=== PATIENT | female | born 1945 ===

== ENCOUNTER 2020-06-29 17:54 | Inpatient (IN) | payer OTHER ==
--- OUTSIDE RECORDS SUMMARY | 2020-06-29 18:01 | XMS REPORT | Continuity of Care Document ---
:1945 Author Organization [facility] Information [place] Care Team Providers Name Role Phone [facility] Information [place] Unavailable Un available Problems Problem Status Onset Classification Date Comments Sourc e Date Reported CHRONIC MYELOID Active Daryn rial LEUKEMIA 020 Bhupinder SBO Active [address] SBO,HX:ELEUTERIO-EN Y Active [facility] GASTRIC BYPASS [address] [place] [address] Center Enterobacter Active Problem 02/22/2020 03/03/15 MDRO , Enterobacter aerogenes, ESBL+ isolated from abdomonal fluid Mischer (organism) 015 Problem added by Rosi reed Expert. Neuro,[facility] Klebsiella Active Problem 02/22/2020 Abd Fluid (PDR), 0 03/03/2015 Mischer (organism) 015 Problem added by Rosi reed Expert. 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, overactive [place] (disorder) [facility] Deep venous Active Problem 02/22/2020 Mischer thrombosis [facility] (disorder) [facility] Diabetes mellitus Active Problem 02/22/2020 M [facility] (disorder) Neuro,[facility] Gastroesophageal Active Problem 02/22/2020 Il lani reflux disease Neuro , (disorder) [facility] 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/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, 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 [place] (context-dependent M edical category) [facility] Hypertensive Active Problem 02/22/2020 Mische r disorder, systemic N euro,MH arterial (disorder) [facility] 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 The other muscles appear to be viable, including all the interosseous muscles, the hypothenar muscles as well as the opponens muscle and the abductor pollicis brevis muscle. Morbid obesity Active Problem 02/22/2020 [facility] her (disorder) Neuro,[facility] Osteoarthritis Active Problem 02/22/2020 [facility] her (disorder) Neuro,[facility] Polyneuropathy Active Problem 02/22/2020 [facility] her (disorder) Neuro,[facility] Diabetes mellitus Active Problem 02/22/2020 M ischer type 2 (disorder) Ne uro,[facility] MORBID OBESITY Active [facility] LFT HAND PAIN Active [facility] Linda ADMINISTRTVE Active [place] [facility] HAND BRACE Active [facility] Linda UNSP INTESTNL OBST, Active [facility] UNSP TO PARTIAL [facility] BARIATRIC SURGERY Active [facility] CHRONIC MYELOID Active Daryn Bhupinder Castro BCR/ABL-POSITIVE, Medications Medication Details Route Status Patient Ordering Order Source Instructions Provider Date Metformin 500 mg = 1 tab, Active hydrochloride 500 PO, BID-Meals, 2019 [place] [facility] Oral Tablet # 30 tab, 0 Refill(s) Esomeprazole 20 MG 20 mg = 1 cap, Active Enteric Coated PO, Daily, # 30 2019 [place] Capsule [Nexium] cap, 0 Refill(s) Prednisone 10 mg, PO, Active Daily, Quantity 2019 Neuro sufficient, 0 Refill(s) Tradjenta 5 mg, PO, Active Daily, 0 2019 Neuro Refill(s) Xarelto 20 mg, PO, Active Daily, 0 2019 Neuro Refill(s) Clonidine 0.1 mg, 0 Active Refill(s) 2019 Neuro Lasix Daily, 0 Active Refill(s) 2019 Neuro Lisinopril 20 mg, PO, BID, Active ch er 0 Refill(s) 2019 Neuro oxybutynin 5 mg, PO, Active cher Daily, 0 2019 Neuro Refill(s) Losartan Notes: (Same Inactive [facility] as: Cozaar) [address] [facility] metoprolol 50 mg 50 mg = 1 tab, Active [facility] oral tablet, PO, Daily, 0 2019 Medica l extended release Refill(s) Cente r Ondansetron 4 MG 4 mg = 1 tab, Active [facility] Disintegrating PO, BID, PRN 2019 Medi carmen Tablet [Zofran] Nausea and Cente r Vomiting, Dissolve tab under tongue, # 10 tab, 0 Refill(s) Citalopram 20 MG 20 mg = 1 tab, Active [facility] Oral Tablet PO, Daily, 0 2018 Medical [Celexa] Refill(s) [place] Clonidine 0.1 mg, Route: Inactive [facility] as Hydrochloride 0.1 PO, Drug form: 2019 Medical MG Oral Tablet TAB, ONCE, Center Dosing Weight 104.545, kg, Start date: 02/17/19 18:05:00 CDT, Stop date: 02/17/19 18:05:00 CDT Clonidine Notes: (Same No Longer [facility] Hydrochloride 0.1 As: Catapres) Active 2019 Medical MG Oral Tablet [place] Dextrose 50% 12.5 gm, Route: Inactive [facility] Syringe IVP, Dosing 2019 Medical Weight 104.545, Center kg, ONCE, Start date: 02/17/19 13:54:00 CDT, Stop date: 02/17/19 13:54:00 CDT D5W 1/2NS 1,000 mL 1,000 mL, Rate: No Longer [facility] 100 ml/hr, Active 2018 Medical Infuse over: 10 Center hr, Route: IV, Dosing Weight 104.545 kg, Total Volume: 1,000, Start date: 02/17/19 13:49:00 CDT, Duration: 30 day, Stop date: 03/19/19 13:48:00 CDT, 2.28, m2, 0 Lisinopril Notes: (Same Inactive [place] as: Prinivil, 2019 Medical Zestril) Center normal saline 0.9% 1,000 mL, Rate: No Longer [place] IV 1,000 mL 100 ml/hr, Active 2019 Medical Infuse over: 10 Center hr, Route: IV, Dosing Weight 104.545 kg, Total Volume: 1,000, Start date: 02/16/19 22:05:00 CDT, Duration: 30 day, Stop date: 03/18/19 22:04:00 CDT, 2.28, m2, 0 sennosides, SHELTER Notes: (Same Inactive [facility] as: Senokot) 2019 Medical Center Dexamethasone Notes: No Longer [place] Concentration: Active 2019 Medical 4mg/ml Center Dexamethasone 4 mg, Route: Inactive [place] IVP, Daily, 2019 Medical Dosing Weight Center 104.545, kg, Priority: NOW, Start date: 02/16/19 12:48:00 CDT, Duration: 30 day, Stop date: 03/18/19 9:00:00 CDT Metoprolol Notes: (Same No Longer [facility] as as: Lopressor) Active 2019 Medical Push over 2 Center minutes Sodium Chloride 1,000 mL, Rate: Inactive [place] 0.9% IV 1,000 mL + 100 ml/hr, 2019 N[place] dical folic acid 1 mg + Infuse over: C enter thiamine 100 mg + 10.1 hr, Route: multivitamin 10 mL IV, Dosing Weight 104.545 kg, Total Volume: 1,011.2, Start date: 02/16/19 12:00:00 CDT, Duration: 1 doses or times, Stop date: 02/16/19 22:05:00 CDT, 2.27, m2, 0 Ofirmev Notes: Infuse No Longer [facility] over 15 minutes Active 2019 Medical Do not exceed Center 4gm/day of acetaminophen MEDICATION WASTE Product Size: 1000 mg Product Wasted: ___ mg Dextrose 50% 12.5 gm, 25 mL, No Longer [facility] Syringe Route: IVP, Active 2019 Medical Drug Form: INJ, Center Dosing Weight 104.545, kg, PRN, PRN Blood Glucose Results, Start date: 02/16/19 11:00:00 CDT, Duration: 30 day, Stop date: 03/18/19 10:59:00 CDT, 0 Glucagon 1 mg, Route: No Longer [facility] IM, Drug form: Active 2018 Medical PDR/INJ, PRN, Center Dosing Weight 104.545, kg, PRN Blood Glucose Results, Start date: 02/16/19 11:00:00 CDT, Duration: 30 day, Stop date: 03/18/19 10:59:00 CDT, 0 Insulin regular Notes: (Same No Longer [facility] as: Humulin R) Active 2019 Medical Roll in palms Center of hands gently; Do not shake vigorously. WASTE: F/P - Black; E - Municipal Trash Bin Stable for 31 days at room temperature Expires in days from D ate Lasix Notes: (Same Inactive [facility] as: Lasix) 2019 Medical [place] Lisinopril Notes: (Same No Longer Kit as as: Prinivil, Active 2019 Medical Zestril) Center metoprolol Notes: (Same No Longer Kit as extended release as: Toprol XL) Active 2019 Medical [place] split tab, Center but do not crush. Clonidine Notes: (Same Inactive [facility] As: Catapres) 2019 Medical [place] phenol Notes: No Longer [facility] Chloraseptic Active 2019 Medical [place] (Same as: Center Chloraseptic, Sore Throat [place]) WASTE: F/P - Black; E - Municipal Trash Bin Morphine 2 mg, Route: Inactive [facility] IVP, ONCE, 2019 Medical Dosing Weight Center 104.545, kg, Start date: 02/16/19 9:16:00 CDT, Stop date: 02/16/19 9:16:00 CDT Docusate Notes: (Same Inactive [facility] as: Colace) (Do 2019 Medical Not Crush) Center Protonix Notes: For IV No Longer [place] push Active 2019 Medical reconstitute Center with 10 ml 0.9% sodium chloride and push over 2 minutes. (Same as: Protonix) Sucralfate Notes: May No Longer [place] interfere Active 2019 Medical w/enteral feeds Center - Take 1 hr before or 2 hr after antacids, dairy pdt, meals & minerals - On empty stomach. Clonidine Notes: (Same Inactive [place] Hydrochloride 0.1 As: Catapres) 2019 Medical MG Oral Tablet Center Sodium Chloride 984.8 mL, Rate: Inactive [place] 0.9% IV 984.8 mL + 100 ml/hr, 2019 Nd dical M.V.I.-12 10 mL Infuse over: 10 Center Daily + folic acid hr, Route: IV, IV 1 mg Daily + Dosing Weight thiamine IV 5 104.545 kg, Total Volume: 1,000, Start date: 02/16/19 8:22:00 CDT, Duration: 1 doses or times, Stop date: 02/16/19 18:21:00 CDT, 2.27, m2, 0 Heparin 80 unit/kg Route: IVP, No Longer Meseret Bolus (Heparin PRN, 6,400 Active 2018 Medica l Dosing Weight) unit, 6.4 mL, Michael ter Drug form: INJ, PRN, Heparin Protocol, Start date: 02/16/19 8:17:00 CDT Stop date: 03/18/19 8:16:00 CDT, 30 day, 0 Heparin 40 unit/kg Route: IVP, No Longer Meseret Bolus (Heparin PRN, 3,200 Active 2018 Medica l Dosing Weight) unit, 3.2 mL, Michael ter Drug form: INJ, PRN, Heparin Protocol, Start date: 02/16/19 8:17:00 CDT Stop date: 03/18/19 8:16:00 CDT, 30 day, 0 heparin additive Notes: Total No Longer Meseret 25,000 unit [18 Concentration = Active 2019 Medical unit/kg/hr] + 50 unit/ ml Center Premix Diluent Total volume = Sodium Chloride 500 ml Send Med 0.45% 500 mL Request 2 hours prior to next bag Hydrochlorothiazid Notes: (Same Inactive [place] e as: 2019 Medical Hydrodiuril) Center With food. Dextrose 50% 12.5 gm, 25 mL, Inactive [place] Syringe Route: IVP, 2019 Medical Drug Form: INJ, Center Dosing Weight 104.545, kg, PRN, PRN Blood Glucose Results, Start date: 02/16/19 8:10:00 CDT, Duration: 30 day, Stop date: 03/18/19 8:09:00 CDT, 0 Glucagon 1 mg, Route: Inactive [place] IM, Drug form: 2019 Medical PDR/INJ, PRN, Center Dosing Weight 104.545, kg, PRN Blood Glucose Results, Start date: 02/16/19 8:10:00 CDT, Duration: 30 day, Stop date: 03/18/19 8:09:00 CDT, 0 Ondansetron Notes: (Same No Longer [place] as: Zofran) Active 2018 Medical MEDICATION Center WASTE Product Size: 4 mg Product Wasted: ___ mg traMADol 100 mg/24 PO, [id number], 0 Active hours oral Refill(s) 2014 [facility] capsule, extended City release Nystatin [id number] 1 appl, TOP, Active UNT/ML / TID, 0 2014 [facility] Triamcinolone Refill(s) [facility] Acetonide 1 MG/ML Topical Cream meropenem 500 mg 500 mg, IV, Active intravenous Q6H, X 10 day, 2014 Memor ial injection # 1 bag, 0 City Refill(s) diphenhydrAMINE 50 25 mg = 0.5 mL, Active 03/06 mg/mL injectable IVP, Q6H, PRN 2014 [facility] solution Itching, 0 City Refill(s) Bisacodyl Notes: (Same No Longer As: Dulcolax, Active 2014 [facility] Bisco-Lax) [facility] Nystatin 000032 Notes: For No Longer UNT/ML / External Use Active 2014 [facility] Triamcinolone Only (Same [facility] Acetonide 1 MG/ML as:Mycolog II Topical Cream cream) Lopressor Notes: (Same No Longer as: Lopressor) Active 2014 [facility] Magnesium Oxide Notes: (Same No Longer 03/05/ H as: Mag-Ox 400) Active 2014 [facility] Magnesium oxide [facility] [id number] elemental magnesium Dose=____mg magnesium oxide (___mg elemental magnesium) insulin detemir Notes: Same as No Longer Levemir Do not Active 2014 [facility] insulin [facility] without contacting prescriber "single patient use only" insulin detemir Notes: Same as No Longer Levemir Do not Active 2014 [facility] insulin [facility] without contacting prescriber "single patient use only" ferrous sulfate Notes: Give No Longer with food. iron Active 2014 [facility] [id number] as ferrous sulfate Dose=___mg elemental iron multivitamin Notes: Give No Longer with food. Active 2014 [facility] (Same As : [facility] Therapeutic multivitamins) POLYETHYLENE 17 gm, 1 pkt, No Longer GLYCOL 3350 Route: PO, Drug Active 2014 Daryn rial form: PWDR, [facility] Daily, Dosing Weight 30.909, kg, Start date: 03/04/15 9:16:00, Duration: 30 day, Stop date: 04/03/15 9:00:00 multivitamin with 1 cap, Route: Inactive iron PO, Drug Form: 2014 [facility] CAP, Dosing [facility] Weight 30.909, kg, Daily, Start date: 03/04/15 9:15:00, Duration: 30 day, Stop date: 04/03/15 9:00:00 Lopressor Notes: (Same No Longer as: Lopressor) Active 2014 [facility] Docusate Sodium 100 mg, 1 cap, No Longer 100 MG Oral Route: PO, Drug Active 2014 Daryn rial Capsule [Colace] form: CAP, BID, [facility] Dosing Weight 30.909, kg, Start date: 03/04/15 9:14:00, Duration: 30 day, Stop date: 04/03/15 9:00:00 Vitamin D3 5000 5,000 IntlUnit, No Longer intl units oral 5 tab, Route: Active 2014 Me morial capsule PO, Drug form: [facility] TAB, Daily, Dosing Weight 30.909, kg, Start date: 03/04/15 9:14:00, Duration: 30 day, Stop date: 04/03/15 9:00:00 Calcium Carbonate Notes: (Same No Longer 1250 MG / As: Fernando-D, Active 2014 [facility] Cholecalciferol OsCal-D, [facility] 125 UNT Oral Calcium) Tablet Amlodipine Notes: (Same No Longer as: Norvasc) Active 2014 [facility] Enoxaparin Notes: (Same No Longer as: Lovenox) Active 2014 [facility] Hydrochlorothiazid Notes: (Same No Longer e as: Active 2014 [facility] Hydrodiuril) [facility] With food. Insulin, Aspart, Notes: Roll in No Longer Human palms of hands Active 2014 [facility] gently; Do not City shake vigorously. (Same as: NovoLOG) "single patient use only" Stable for 28 days at room temperature. Expires in days from D ate Dextrose 50% 12.5 gm, 25 mL, No Longer H Syringe Route: IVP, [facility] 2014 [facility] Drug Form: INJ, [facility] Dosing Weight 30.909, kg, PRN, PRN Blood Glucose Results, Start date: 03/04/15 8:53:00, Duration: 30 day, Stop date: 04/03/15 8:52:00 Glucagon 1 mg, Route: No Longer IM, Drug form: [address] PDR/INJ, PRN, [facility] Dosing Weight 30.909, kg, PRN Blood Glucose Results, Start date: 03/04/15 8:53:00, Duration: 30 day, Stop date: 04/03/15 8:52:00 Ondansetron Notes: (Same No Longer as: Zofran) Active [address] [place] [address] MEDICATION City WASTE Product Size: 4 mg Product Wasted: ___ mg Bisacodyl Notes: (Same No Longer As: Dulcolax, Active [address] [place] [address] Bisco-Lax) [facility] acetaminophen 325 Notes: Do not No Longer mg oral tablet exceed [address] [place] [address] gm/day. (Same [place] as: Tylenol) Benadryl Notes: (Same No Longer as: Benadryl) Active 2014 [facility] metoprolol Notes: (Same No Longer tartrate as: Lopressor) Active 2014 [facility] Sodium Chloride 25 mL, Route: No Longer 0.9% IV IV, Start date: Active 2014 [facility] 03/03/15 [facility] 21:41:00, Duration: 30 day, Stop date: 04/02/15 21:40:00, PRN Line Flush BD Normal Saline Notes: (Same No Longer Flush as: BD Active 2014 [facility] Posiflush) [facility] Metoprolol Notes: (Same No Longer as: Lopressor) Active 2014 [facility] Push over 2 City minutes Amlodipine Notes: (Same No Longer as: Norvasc) Active 2014 [facility] Hydralazine Notes: (Same Inactive as: Apresoline) 2014 [facility] Push over 5 City minutes Dilaudid Notes: (Same No Longer as: Dilaudid) Active 2014 [facility] Losartan Notes: (Same No Longer as: Cozaar) Active 2014 [facility] metoprolol Notes: (Same Inactive extended release as: Toprol XL) 2014 [facility] Do Not Crush [facility] Nexium 40 mg, Route: No Longer PO, Before Active 2014 [facility] Breakfast, [facility] Dosing Weight 160.455, kg, Start date: 03/03/15 7:30:00, Duration: 30 day, Stop date: 04/01/15 7:30:00 Protonix Notes: Tablet No Longer should not be Active 2014 [facility] chewed or [facility] crushed. (Same as: Protonix) Alteplase Notes: "Syringe No Longer for catheter Active 2014 [facility] clearance or [facility] interventional radiology use. Reconstitute each vial of Cathflo Activase with 2.2 ml Sterile Water resulting in a 1 mg/ml solution. Stable for 8 hours only. (Same as: Activase) MEDICATION WASTE Product Size: 2 mg Product Wasted: ___ mg 24 HR tramadol Notes: Not to No Longer 03/03/ H hydrochloride 100 exceed Active 2014 Memori al MG Extended 400mg/day. City Release Tablet (Same As: Ultram) meropenem Notes: Same as No Longer Merrem Active 2014 [facility] MEDICATION [facility] WASTE Product Size: 500 mg Product Wasted: ___ mg D5NS + KCL 20mEq/L Notes: PREMIX No Longer 03/02 1000ml (Premix) IV - Do Not Active 2014 Daryn rial 1,000 mL [facility] remove patch Notes: Remove No Longer old patch Active 2014 [facility] before [facility] application of new patch. meropenem 500 mg 500 mg, IV, Active intravenous Q6H, X 14 day, 2014 [facility] # [facility] bag, 0 [facility] Refill(s), given to patient Vancomycin 1 gm = 200 mL, Active IVPB, [id number], 2014 [facility] 0 Refill(s) [facility] enoxaparin 30 30 mg = 0.3 mL, Active mg/0.3 mL SUB-Q, 2014 [facility] subcutaneous [id number], 0 [facility] solution Refill(s) Acetaminophen 325 2 tab, PO, Q4H, Active MG / Hydrocodone PRN Pain Score 2014 [facility] Bitartrate 5 MG 7-10, 0 [facility] Oral Tablet [[place] Refill(s) 5/325] Docusate Sodium 100 mg = 1 cap, Active 100 MG Oral PO, BID, 0 2014 [facility] Capsule [Colace] Refill(s) [facility] metoprolol 50 mg = 1 tab, Active tartrate 50 mg PO, Daily, 0 2014 Daryn rial oral tablet Refill(s) [facility] metoprolol 75 mg = 3 tab, Active tartrate 25 mg PO, Bedtime, 0 2014 Me morial oral tablet Refill(s) [facility] omeprazole 20 mg 20 mg = 1 cap, Active oral delayed PO, Daily, # 30 2015 [facility] orial release capsule cap, 0 [facility] Refill(s), given to patient losartan 100 mg 100 mg = 1 tab, Active oral tablet PO, Daily, 0 2014 Memoria l Refill(s) [facility] Vitamin D3 5000 PO, Daily, 0 Active intl units oral Refill(s) [facility] capsule [facility] POLYETHYLENE PO, Daily, 0 Active GLYCOL 3350 Refill(s) 2014 [facility] ondansetron 2 4 mg = 2 mL, Active mg/mL injectable IVP, Q8H, PRN 2014 [facility] solution Nausea & City Vomiting, 0 Refill(s) multivitamin with 1 cap, PO, Active iron Daily, 0 2014 [facility] Refill(s) [facility] acetaminophen 325 325 mg = 1 tab, Active mg oral tablet PO, Q4H, PRN 2014 Daryn rial Pain Score 1-3, [facility] 0 Refill(s) Hydrochlorothiazid 50 mg = 2 tab, Active e 25 MG Oral PO, Daily, 0 2014 [facility] Tablet Refill(s) [facility] Regular Insulin, 15 unit, SUB-Q, Active Human 100 UNT/ML Sliding Scale, 2014 [facility] Injectable PRN Blood [facility] Solution Glucose Results, 0 Refill(s) insulin detemir 10 unit, SUB-Q, Active 100 units/mL QAM, 0 2014 [facility] subcutaneous Refill(s) [facility] solution Calcium Carbonate 1 tab, PO, TID, Active 1250 MG / 0 Refill(s) 2014 [facility] Cholecalciferol [facility] 125 UNT Oral Tablet bisacodyl 10 mg 10 mg = 1 supp, Active rectal suppository PA, Daily, PRN 2014 [facility] Constipation, 0 [facility] Refill(s) amLODIPine 5 mg 5 mg = 1 tab, Active oral tablet PO, Bedtime, 0 2014 [facility]) [facility] glucagon 1 mg, IM, PRN, Active recombinant 1 mg PRN Blood 2014 Memor ial injection Glucose [facility] Results, 0 Refill(s) Calcium Carbonate Notes: (Same No Longer 1250 MG / As: Fernando-D, Active 2014 [facility] Cholecalciferol OsCal-D, [facility] 125 UNT Oral Calcium) Tablet multivitamin with Notes: Same as: No Longer iron Hematogen Active 2014 [facility] Non-Formulary [facility] saliva substitutes Notes: Same as No Longer Biotene Oral Active 2014 [facility] Balance [facility] Dulcolax Laxative Notes: (Same No Longer As: Dulcolax, Active 2014 [facility] Bisco-Lax) [facility] Magnesium Oxide Notes: (Same Inactive as: Mag-Ox 400) 2014 [facility] Magnesium oxide [facility] [id number] elemental magnesium Dose=____mg magnesium oxide (___mg elemental magnesium) Vitamin B1 + Notes: (Same No Longer Sodium Chloride As: Vitamin B1) Active 2014 [facility] 0.9% IV 50 mL [facility] meropenem + Sodium Notes: Same as No Longer Chloride 0.9% IV Merrem Active 2014 [facility] 100 mL MEDICATION [facility] WASTE Product Size: 500 mg Product Wasted: ___ mg Kayexalate 15 gm, Route: Inactive PO, Drug form: [address] [place] [address] SUSP, ONCE, City Dosing Weight 171.3, kg, Start date: 02/15/15 18:09:00, Stop date: 02/15/15 18:09:00 acetaminophen 325 Notes: Do not No Longer mg oral tablet exceed 4 Active 2014 [facility] gm/day. (Same City as: Tylenol) Morphine Notes: (Same No Longer as:MORPhine Active 2014 [facility] Sulfate) [facility] Acetaminophen 325 Notes: (Same No Longer MG / Hydrocodone as: [place] [facility] Bitart[facility] 5 MG 325/5) Do not C ity Oral Tablet [[place] exceed 4gm/day 5/325] of acetaminophen. Dulcolax Laxative Notes: (Same No Longer As: Dulcolax, Active 2014 [facility] Bisco-Lax) [facility] Levemir FlexPen Notes: Same as Inactive Levemir Do not 2014 [facility] insulin [facility] without contacting prescriber "single patient use only" Magnesium Oxide Notes: (Same Inactive as: Mag-Ox 400) 2014 [facility] Magnesium oxide [facility] [id number] elemental magnesium Dose=____mg magnesium oxide (___mg elemental magnesium) Amino Acids 5% Notes: Same as: Inactive with 20% Dextrose Clinimix [facility] Memor ial (Clinimix [facility] Sulfite-Free) 2,000 mL + sodium chloride 70 mEq + sodium Floranex 1 tab, Route: No Longer CHEW, Drug Active 2014 [facility] Form: TAB, City Dosing Weight 171.3, kg, TID, Start date: 02/14/15 13:00:00, Duration: 30 day, Stop date: 03/16/15 10:00:00 Dulcolax Laxative Notes: (Same Inactive As: Dulcolax, 2014 [facility] Bisco-Lax) [facility] Levemir Notes: Same as Inactive Levemir Do not 2014 [facility] insulin [facility] without contacting prescriber "single patient use only" metoprolol Notes: (Same No Longer tartrate as: Lopressor) Active 2014 [facility] Sodium Chloride 1,000 mL, Rate: No Longer 0.154 MEQ/ML 125 ml/hr, Active 2014 [facility] Injectable Infuse over: 8 City Solution hr, Route: IV, Dosing Weight 171.3 kg, Total Volume: 1,000, Start date: 02/13/15 13:57:00, Duration: 30 day, Stop date: 03/15/15 13:56:00 Labetalol Notes: (Same No Longer as: Normodyne, Active 2014 [facility] Trandate) Push City over 2 minutes Give bolus over 2-3 minutes. Morphine Notes: (Same No Longer as:MORPhine Active 2014 [facility] Sulfate) [facility] Albuterol 0.83 Notes: SEE RT No Longer H MG/ML Inhalant DOCUMENTATION Active 2014 [facility] orial Solution (Same as: [facility] Proventil) Naloxone Notes: Same as No Longer Narcan Active 2014 [facility] Flumazenil Notes: (Same No Longer as: Romazicon) Active 2014 [facility] Hydromorphone Notes: (Same No Longer as: Dilaudid) Active 2014 [facility] Ondansetron Notes: (Same No Longer as: Zofran) Active 2014 [facility] MEDICATION City WASTE Product Size: 4 mg Product Wasted: ___ mg Cipro Notes: Do not No Longer refrigerate Active 2014 [facility] Miralax Notes: Dissolve No Longer in 8 oz of Active 2014 [facility] water or juice. City (Same as: Miralax) Docusate Sodium Notes: (Same No Longer H 100 MG Oral as: Colace) (Do Active 2014 [facility] rial Capsule [Colace] Not Crush) [facility] Levemir FlexPen Notes: Same as No Longer Levemir Do not Active 2014 [facility] hold insulin [facility] without contacting prescriber "single patient use only" Vitamin D3 2,000 IntlUnit, No Longer 2 tab, Route: Active 2014 [facility] PO, Drug form: City TAB, Daily, Dosing Weight 171.3, kg, Start date: 02/13/15 9:00:00, Duration: 30 day, Stop date: 03/14/15 9:00:00 metoprolol Notes: (Same No Longer tartrate as: Lopressor) Active 2014 [facility] Hydrochlorothiazid Notes: (Same No Longer e as: Active 2014 [facility] Hydrodiuril) [facility] With food. 168 HR Clonidine Notes: Patch Inactive H 0.16035 MG/HR delivers 0.2 2014 [facility] Transdermal Patch mg/24 hours; C ity Patch is applied weekly. "Remove old patch before application of new patch" (Same As: [id number]) Amino Acids 5% Notes: Same as: No Longer with 20% Dextrose Clinimix Active 2014 [facility] (Clinimix [facility] Sulfite-Free) 2,000 mL + sodium chloride 70 mEq + sodium Vitamin B1 + Notes: (Same No Longer Sodium Chloride As: Vitamin B1) Active 2014 [facility] 0.9% IV 50 mL [facility] Clindamycin 900 mg, 50 mL, No Longer Route: IVPB, Active 2014 [facility] Drug form: INJ, [facility] [id number], Dosing Weight 171.3, kg, Start date: 02/12/15 16:00:00, Duration: 30 day, Stop date: 03/14/15 8:00:00 Vitamin B 12 Notes: (Same Inactive As: Vitamin 2014 [facility] B12) [facility] Sodium Chloride 1,000 mL, Rate: Inactive 0.154 MEQ/ML 100 ml/hr, 2014 [facility] Injectable Infuse over: 10 City Solution hr, Route: IV, Dosing Weight 171.3 kg, Total Volume: 1,000, Start date: 02/12/15 15:42:00, Duration: 3 day, Stop date: 02/15/15 15:41:00 Alteplase Notes: "Syringe Inactive for catheter 2014 [facility] clearance or [facility] interventional radiology use. Stable for 8 hours only. (Same as: Activase) MEDICATION WASTE Product Size: 2 mg Product Wasted: ___ mg Morphine Notes: (Same No Longer as:MORPhine Active 2014 Sulfate) [facility] Magnesium Sulfate 2 gm, 50 mL, Inactive Route: IVPB, 2014 Drug form: INJ, [facility] Q2H, Dosing Weight 171.3, kg, Total dose = 4 gm, Start date: 02/11/15 12:00:00, Duration: 2 doses or times, Stop date: 02/11/15 14:00:00 fat emulsion, Notes: (Same No Longer intravenous as: Intralipid, Active 2014 [facility] Liposyn) [facility] Vancomycin Notes: TIME No Longer CRITICAL Active 2014 [facility] MEDICATION [facility] Morphine Notes: (Same No Longer as:MORPhine Active 2014 [facility] Sulfate) [facility] Amino Acids 5% Notes: Same as: No Longer with 20% Dextrose Clinimix Active 2014 [facility] (Clinimix [facility] Sulfite-Free) 2,000 mL + sodium chloride 70 mEq + sodium Insulin regular 60 units) No Longer Stable for 28 Active 2014 [facility] at room [facility] temperature Expires in days from D ate Dextrose 50% 25 gm, 50 mL, No Longer Syringe Route: IVP, 2014 [facility] Drug Form: INJ, [facility] Dosing Weight 171.3, kg, PRN, PRN Blood Glucose Results, Start date: 02/09/15 9:08:00, Duration: 30 day, Stop date: 03/11/15 9:07:00 Glucagon 1 mg, Route: No Longer IM, Drug form: Active 2014 [facility] PDR/INJ, PRN, [facility] Dosing Weight 171.3, kg, PRN Blood Glucose Results, Start date: 02/09/15 9:08:00, Duration: 30 day, Stop date: 03/11/15 9:07:00 insulin detemir Notes: Same as No Longer Levemir Do not Active 2014 [facility] insulin [facility] without contacting prescriber "single patient use only" Morphine Notes: (Same Inactive as:MORPhine 2014 [facility] Sulfate) [facility] Morphine Notes: (Same Inactive as:MORPhine 2014 [facility] Sulfate) [facility] Ativan Notes: (Same No Longer as: Ativan) Active 2014 [facility] insulin 60 units) Inactive isophane-NPH Stable for 28 [facility] days at [facility] temperature Expires in days from D ate Magnesium Sulfate 2 gm, 50 mL, Inactive Route: IVPB, 2014 [facility] Drug form: INJ, [facility] ONCE, Dosing Weight 171.3, kg, Total dose = 2 gm, Start date: 02/08/15 9:42:00, Duration: 1 doses or times, Stop date: 02/08/15 9:42:00 Lasix Notes: (Same No Longer as: Lasix) Active 2014 [facility] MEDICATION [facility] WASTE Product Size: 40 mg Product Wasted: ___ mg potassium Notes: (Same No Longer phosphate + Sodium as: K Active 2014 [facility] ia Chloride 0.9% IV Phosphate.) 1 [facility] 250 mL mMol phoshate has 1.47 mEq potassium Infuse over 4 hours fat emulsion, Notes: (Same No Longer intravenous as: Intralipid, Active 2014 [facility] Liposyn) [facility] Calcium Gluconate 2,000 mg, 20 Inactive mL, Route: 2014 [facility] IVPB, ONCE, [facility] Dosing Weight 171.3, kg, Start date: 02/07/15 7:37:00, Stop date: 02/07/15 7:37:00 pantoprazole 40 mg, Route: No Longer IVP, Before Active 2014 [facility] Breakfast, [facility] Dosing Weight 171.3, kg, Start date: 02/07/15 7:30:00, Duration: 30 day, Stop date: 03/08/15 7:30:00 Amino Acids 5% Notes: Same as: No Longer with 20% Dextrose Clinimix E 5/20 Active 2014 [facility] and Electrolytes Andrew (Clinimix E electrolytes Sulfite-Free) for this 2,000 mL + formulation multivitamin listed on bag meropenem Notes: Same as No Longer Merrem Active 2014 [facility] WASTE Product Size: 500 mg Product Wasted: ___ mg micafungin Notes: Same as No Longer Mycamine Active 2014 [facility] Protect from City light MEDICATION WASTE Product Size: 100 mg Product Wasted: ___ mg Tobramycin Notes: TIME Inactive CRITICAL 2014 [facility] (Same As: Nebcin) Calcium Gluconate 2,000 mg, 20 Inactive mL, Route: 2014 [facility] IVPB, ONCE, [facility] Dosing Weight 171.3, kg, Start date: 02/06/15 16:07:00, Stop date: 02/06/15 16:07:00 insulin 60 units) No Longer isophane-NPH Stable for 28 Active 2014 [facility] days at room [facility] temperature Expires in days from D ate saliva substitutes Notes: Same as No Longer 01/11 Biotene Oral Active 2014 [facility] enalaprilat Notes: (Same No Longer as: Vasotec-IV) Active 2014 [facility] lidocaine 1% Notes: No Longer Preservative Active 2014 [facility] free. (Same City as: Xylocaine MPF) Insulin regular 60 units) No Longer Stable for 28 Active 2014 [facility] days at room [facility] temperature Expires in days from D ate Glucagon 1 mg, Route: No Longer IM, Drug form: Active 2014 [facility] PDR/INJ, PRN, [facility] Dosing Weight 171.3, kg, PRN Blood Glucose Results, Start date: 02/06/15 11:03:00, Duration: 30 day, Stop date: 03/08/15 11:02:00 Dextrose 50% 25 gm, 50 mL, No Longer Syringe Route: IVP, Active [address] [place] [address] Drug Form: INJ, [facility] Dosing Weight 171.3, kg, PRN, PRN Blood Glucose Results, Start date: 02/06/15 11:03:00, Duration: 30 day, Stop date: 03/08/15 11:02:00 Pepcid 20 mg, 2 mL, No Longer Route: IVP, Active 2014 [facility] Drug form: INJ, City Q12H, Start date: 02/06/15 9:00:00, Duration: 30 day, Stop date: 03/07/15 21:00:00 Biotene Oral Notes: Same as Inactive Balance Biotene Oral [address] [place] [address] Calcium Gluconate 3,000 mg, 30 Inactive mL, Route: [address] [place] [address] IVPB, ONCE, [facility] Dosing Weight 171.3, kg, Start date: 02/06/15 6:16:00, Stop date: 02/06/15 6:16:00 Calcium Chloride 500 mL, 500 Inactive 0.0014 MEQ/ML / ml/hr, Infuse 2014 [facility] Potassium Chloride Over: 1 hr, C ity 0.004 MEQ/ML / Route: IV, 500, Sodium Chloride Drug form: INJ, 0.103 MEQ/ML / ONCE, Priority: Sodium Lactate STAT, Dosing 0.028 MEQ/ML Weight 171.3 Injectable kg, Start date: Solution 02/06/15 6:14:00, Duration: 1 doses or times, Stop date: 02/06/15 6:14:00 Lactated Ringers 1,000 mL, Rate: Inactive IV 1,000 mL 125 ml/hr, 2014 [facility] Infuse over: 8 City hr, Route: IV, Dosing Weight 171.3 kg, Total Volume: 1,000, Start date: 02/06/15 6:12:00, Stop date: 02/06/15 20:59:00 Calcium Gluconate 1,000 mg, 10 Inactive mL, Route: [address] [place] [address] IVPB, ONCE, [facility] Dosing Weight 171.3, kg, Start date: 02/05/15 8:02:00, Stop date: 02/05/15 8:02:00 Levaquin Notes: (Same No Longer as:Levaquin) Active 2014 [facility] Zosyn Notes: (Same No Longer as: Zosyn) Active 2014 [facility] Dosing based on [facility] Piperacillin component MEDICATION WASTE Product Size: 4500 mg Product Wasted: _0__ mg cefepime Notes: (Same Inactive As: Maxipime) 2014 [facility] MEDICATION City WASTE Product Size: 1000 mg Product Wasted: ___ mg Calcium Gluconate 1,000 mg, 10 Inactive mL, Route: 2014 [facility] IVPB, ONCE, [facility] Dosing Weight 171.3, kg, Start date: 02/04/15 5:11:00, Stop date: 02/04/15 5:11:00 Amlodipine Notes: (Same No Longer as: Norvasc) Active 2014 [facility] Lovenox Notes: (Same No Longer as: Lovenox) Active 2014 [facility] Famotidine 20 MG Notes: (Same No Longer Oral Tablet as: Pepcid) Active 2014 [facility] [Pepcid] [facility] 24 HR Metoprolol Notes: (Same No Longer Tartrate 50 MG as: Toprol XL) Active 2014 [facility] Extended Release May split tab, [facility] Tablet [Toprol] but do not crush. Calcium Gluconate 1,000 mg, 10 Inactive mL, Route: 2014 [facility] IVPB, ONCE, [facility] Dosing Weight 171.3, kg, Start date: 02/03/15 5:22:00, Stop date: 02/03/15 5:22:00 Lovenox 30 mg, Route: Inactive SUB-Q, Drug 2014 [facility] form: INJ, [facility] [id number], Dosing Weight 171.3, kg, Start date: 02/02/15 14:00:00, Duration: 30 day, Stop date: 03/04/15 2:00:00 Rocephin Notes: (Same Inactive As: Rocephin). 2014 [facility] Use with 100ml [facility] NS mini-bag PLUS and infuse over 30 min MEDICATION WASTE Product Size: 1000 mg Product Wasted: 0 mg Lovenox Notes: Nurse to Inactive ensure 2014 [facility] patient education per anticoagulation policy. (Same as: Lovenox) Lovenox Notes: Nurse to Inactive ensure 2014 [facility] patient education per anticoagulation policy. (Same as: Lovenox) Enoxaparin 171.3 mg, Inactive Route: SUB-Q, 2014 [facility] Drug form: INJ, [facility] [id number], Dosing Weight 171.3, kg, Start date: 02/02/15 13:00:00, Duration: 30 day, Stop date: 03/04/15 1:00:00 tramadol Notes: Not to No Longer hydrochloride 50 exceed Active 2014 [facility] Oral Tablet 400mg/day. [facility] (Same As: [facility]) 24 HR Metoprolol Notes: (Same No Longer Tartrate 50 MG as: Toprol XL) Active 2014 [facility] Extended Release May split tab, [facility] Tablet [Toprol] but do not crush. Losartan Notes: (Same No Longer as: Cozaar) Active 2014 [facility] Amlodipine Notes: (Same No Longer as: Norvasc) Active 2014 [facility] Hydralazine Notes: (Same No Longer as: Apresoline) Active 2014 [facility] Push over 5 [facility] minutes Insulin regular 60 units) No Longer Stable for 28 Active 2014 [facility] at room [facility] temperature Expires in days from D ate Amiodarone Notes: (Same No Longer as: Cordarone) Active 2014 [facility] Insulin regular 60 units) No Longer Stable for 28 Active 2014 [facility] at room [facility] temperature Expires in days from D ate Dextrose 50% 25 gm, 50 mL, No Longer Syringe Route: IVP, Active 2014 [facility] Drug Form: INJ, [facility] Dosing Weight 170.1, kg, PRN, PRN Blood Glucose Results, Start date: 02/01/15 9:18:00, Duration: 30 day, Stop date: 03/03/15 9:17:00 Glucagon 1 mg, Route: No Longer IM, Drug form: Active [address] [place] [address] PDR/INJ, PRN, [facility] Dosing Weight 170.1, kg, PRN Blood Glucose Results, Start date: 02/01/15 9:18:00, Duration: 30 day, Stop date: 03/03/15 9:17:00 Labetalol Notes: (Same No Longer as: Normodyne, Active 2014 [facility] Trandate) Push City over 2 minutes Give bolus over 2-3 minutes. potassium Notes: (Same Inactive phosphate + Sodium as: K 2014 [facility] ial Chloride 0.9% IV Phosphate.) 1 [facility] 250 mL mMol phoshate has 1.47 mEq potassium Infuse over 4 hours Albuterol 1 MG/ML Notes: SEE RT No Longer Inhalant Solution DOCUMENTATION Active 2014 [facility] (Same as: [facility] Proventil) AMIODarone 900 mg 2 mg/ml. No Longer in D5W 500 ml IV "Recommendation [facility] 2014 [facility] 900 mg + Dextrose : Use an [facility] 5% in Water IV 482 in-line filter mL during administration for continuous infusions to reduce the incidence of phlebitis" (Same as Codarone) MEDICATION WASTE Product Size: 150 mg Product Wasted: ___ mg Amiodarone 2 mg/ml. Inactive "Recommendation 2014 [facility] : Use an [facility] in-line filter during administration for continuous infusions to reduce the incidence of phlebitis" (Same as Codarone) MEDICATION WASTE Product Size: 150 mg Product Wasted: 0 mg Lovenox Notes: (Same No Longer as: Lovenox) Active 2014 [facility] Calcium Chloride 500 mL, 500 Inactive 0.0014 MEQ/ML / ml/hr, Infuse 2014 [facility] Potassium Chloride Over: 1 hr, C ity 0.004 MEQ/ML / Route: IV, 500, Sodium Chloride Drug form: INJ, 0.103 MEQ/ML / ONCE, Priority: Sodium Lactate STAT, Dosing 0.028 MEQ/ML Weight 170.1 Injectable kg, Start date: Solution 01/30/15 8:18:00, Duration: 1 doses or times, Stop date: 01/30/15 8:18:00 Sodium Chloride 250 mL, Rate: No Longer 0.9% (titrate) 250 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 with blood [facility] product administration, Dosing Weight 170.1, kg, Route: IV, Total Volume: 250, Start Date: 01/30/15 8:08:00, Duration: 30 day, Stop date: 03/01/15 8:07:00, Replace Every: 24 hr Albumin Human, SHELTER Notes: LOT#: Inactive 50 MG/ML 2014 [facility] Injectable Mfg: [facility] Solution (Same as: Albuminar) "blood product derivative&quot ; Hydromorphone Notes: (Same Inactive as: Dilaudid) 2014 [facility] Lovenox Notes: (Same No Longer as: Lovenox) Active 2014 [facility] Albumin Human, SHELTER Notes: LOT#: No Longer 50 MG/ML Active 2014 [facility] Injectable Mfg: [facility] Solution (Same as: Albuminar) "blood product derivative&quot ; heparin 2,500 unit 247.5 mL, Rate: No Longer + Sodium Chloride 20 ml/hr, Active 2014 [facility] 0.9% IV 247.5 mL Infuse over: Ci ty 12.5 hr, Route: IVPB, Dosing Weight 160.2 kg, Total Volume: 250, Start date: 01/29/15 23:19:00, Duration: 30 day, Stop date: 02/28/15 23:18:00 Lactated Ringers 1,000 mL, Rate: No Longer 01/30 IV 1,000 mL 60 ml/hr, Active 2014 [facility] Infuse over: City 16.7 hr, Route: IV, Dosing Weight 160.2 kg, Total Volume: 1,000, Start date: 01/29/15 22:19:00, Stop date: 02/28/15 22:18:00 remove patch Notes: Remove Inactive old patch 2014 [facility] application of new patch. Calcium Chloride 2,000 mL, 2,000 Inactive 0.0014 MEQ/ML / ml/hr, Infuse 2014 [facility] Potassium Chloride Over: 1 hr, C ity 0.004 MEQ/ML / Route: IV, Sodium Chloride ONCE, Priority: 0.103 MEQ/ML / STAT, Dosing Sodium Lactate Weight 160.2 0.028 MEQ/ML kg, Start date: Injectable 01/29/15 Solution 20:19:00, Duration: 1 doses or times, Stop date: 01/29/15 20:19:00 Ondansetron Notes: (Same Inactive as: Zofran) 2014 [facility] MEDICATION City WASTE Product Size: 4 mg Product Wasted: ___ mg Hydromorphone Notes: (Same Inactive as: Dilaudid) 2014 [facility] Morphine Notes: (Same Inactive as:MORPhine 2014 [facility] Sulfate) [facility] Naloxone Notes: Same as Inactive Narcan 2014 [facility] Flumazenil Notes: (Same Inactive as: Romazicon) 2014 [facility] Albuterol 0.83 Notes: SEE RT Inactive MG/ML Inhalant DOCUMENTATION 2014 [facility] orial Solution (Same as: [facility] Proventil) Calcium Chloride 1,000 mL, Rate: Inactive 0.0014 MEQ/ML / 125 ml/hr, 2014 [facility] Potassium Chloride Infuse over: 8 City 0.004 MEQ/ML / hr, Route: IV, Sodium Chloride Dosing Weight 0.103 MEQ/ML / 160.2 kg, Total Sodium Lactate Volume: 1,000, 0.028 MEQ/ML Start date: Injectable 01/29/15 Solution 17:13:00, Duration: 30 day, Stop date: 02/28/15 17:12:00 Ancef Special Inactive Instructions: 2015 [facility] 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 Surgical [facility] Prophylaxis Only; For patients < 100 kg Reglan Notes: (Same No Longer as: Reglan) Active 2014 [facility] Vasotec Notes: (Same No Longer as: Vasotec-IV) Active 2014 [facility] ceFAZolin Notes: Same as: No Longer Ancef Active 2014 [facility] Nitroglycerin 0.02 Notes: 1 gram No Longer 01/29 MG/MG Topical is Active 2014 [facility] Ointment approximately 1 [facility] inch of nitroglycerin ointment (20 mg NTG per gram) (Same as:Nitro-Bid) norepinephrine 8 Notes: Not for No Longer mg + Dextrose 5% direct Active 2014 [facility] in Water (Titrate) administration [facility] IV 242 mL - DILUTE. Protect from light. (Same as:Levophed). Administer by either central venous catheter or peripherally-in serted central catheter (PICC) line. PLEASE SEND STAT Dilaudid Notes: (Same Inactive as: Dilaudid) 2014 [facility] Phenergan Notes: Do not No Longer give IV push. Active 2014 [facility] (Same as: [facility] Phenergan) Tylenol Notes: Max No Longer acetaminophen = Active 2014 [facility] 4000 mg/day (4 City gm/day). (Same as: Tylenol) insulin regular 60 units) No Longer 100 units/mL human Stable for 28 Active 2014 [facility] recombinant days at room [facility] temperature Expires in days from D ate insulin regular 60 units) No Longer 100 units/mL human Stable for 28 Active 2014 [facility] recombinant days at room [facility] temperature Expires in days from D ate Dextrose 50% in 25 mL, Route: No Longer Water IV IVP, Start Active 2014 [facility] date: 01/29/15 [facility] 11:03:00, Duration: 30 day, Stop date: 02/28/15 11:02:00, PRN Blood Glucose Results Dextrose 50% in 50 mL, Route: No Longer Water IV IVP, Start 2014 [facility] date: 01/29/15 [facility] 11:02:00, Duration: 30 day, Stop date: 02/28/15 11:01:00, PRN Blood Glucose Results Ceftriaxone Notes: (Same No Longer As: Rocephin). Active 2014 [facility] Use with 100ml [facility] NS mini-bag PLUS and infuse over 30 min MEDICATION WASTE Product Size: 1000 mg Product Wasted: ___ mg Ancef 2 gm, Route: Inactive IVPB, [id number], 2014 [facility] Dosing Weight [facility] 160.2, kg, Start date: 01/29/15 10:00:00, Duration: 30 day, Stop date: 02/28/15 2:00:00 heparin Notes: porcine Inactive heparin 2014 [facility] Lactated Ringers 1,000 mL, Rate: Inactive IV 1,000 mL 125 ml/hr, 2014 [facility] Infuse over: 8 City hr, Route: IV, Dosing Weight 160.2 kg, Total Volume: 1,000, Start date: 01/29/15 6:43:00, Stop date: 02/28/15 6:42:00 Calcium Chloride 2,000 mL, 1,000 Inactive 0.0014 MEQ/ML / ml/hr, Infuse 2014 [facility] Potassium Chloride Over: 2 hr, C ity 0.004 MEQ/ML / Route: IV, Sodium Chloride 2,000, Drug 0.103 MEQ/ML / form: INJ, Sodium Lactate ONCE, Priority: 0.028 MEQ/ML STAT, Dosing Injectable Weight 160.2 Solution kg, Start date: 01/29/15 6:41:00, Duration: 1 doses or times, Stop date: 01/29/15 6:41:00 Calcium Gluconate 1,000 mg, 10 Inactive mL, Route: 2014 [facility] IVPB, ONCE, [facility] Dosing Weight 160.2, kg, Start date: 01/29/15 5:44:00, Stop date: 01/29/15 5:44:00 Morphine 3 mg, Route: Inactive IVP, ONCE, 2014 [facility] Dosing Weight [facility] 153.722, kg, Priority: NOW, Start date: 01/29/15 4:34:00, Stop date: 01/29/15 4:34:00 Morphine Notes: (Same No Longer as:MORPhine Active 2014 [facility] Sulfate) [facility] Pepcid Notes: (Same No Longer as: Pepcid) Can Active 2014 [facility] be dilute in [facility] 5-10cc NS IVP: Slow IV push over at least 2 minutes. pantoprazole 40 mg, Route: Inactive IVP, Daily, 2014 [facility] Dosing Weight [facility] 153.722, kg, Patient is NPO, Start date: 01/28/15 20:00:00, Duration: 30 day, Stop date: 02/27/15 9:00:00 Calcium Carbonate Notes: (Same No Longer 500 MG Chewable As: Tums) [facility] Carbonate 500 mg = 200 mg elemental calcium Dose = mg calcium carbonate ( mg elemental calcium) Magnesium Oxide Notes: (Same No Longer H as: Mag-Ox 400) Active 2014 [facility] Magnesium oxide [facility] [id number] elemental magnesium Dose=____mg magnesium oxide (___mg elemental magnesium) Calcium Gluconate Special No Longer Instructions: Active 2014 [facility] FOR ICU USE [facility] ONLY potassium Notes: (Same No Longer phosphate + Sodium as: K Active 2014 [facility] ial Chloride 0.9% IV Phosphate.) 1 [facility] 250 mL mMol phoshate has 1.47 mEq potassium Infuse over 4 hours Neutra-Phos Notes: (Same No Longer as: Active 2014 [facility] Neutra-Phos) [facility] Each 1.25 gm pkt has 250mg phosphorous. Mix w/2.5oz water and stir. Magnesium Sulfate Special No Longer Instructions: Active 2014 [facility] FOR ICU USE [facility] ONLY sodium phosphate + Special No Longer Sodium Chloride Instructions: Active 2014 [place] 0.9% IV 250 mL FOR ICU USE [facility] ONLY potassium chloride Notes: (Same No Longer as: Potassium Active 2014 [facility] Chloride) [facility] sodium bicarbonate Notes: (sodium Inactive 01/29 8.4% bicarb 8.4% (1 2014 [facility] mEq/ml) 50 ml [facility] syringe) Dextrose 50% 12.5 gm, 25 mL, No Longer H Syringe Route: IVP, Active 2014 [facility] Drug Form: INJ, [facility] Dosing Weight 153.722, kg, PRN, PRN Blood Glucose Results, Start date: 01/28/15 18:55:00, Duration: 30 day, Stop date: 02/27/15 18:54:00 Insulin regular Notes: (Same No Longer H 100 unit + Sodium as: Humulin R Active 2014 [facility] Chloride 0.9% and NovoLIN R) Cit y (titrate) 99 mL (Do not shake) ketOROLAC 30 mg/mL 4 days Inactive injectable MEDICATION 2014 [facility] solution WASTE City Product Size: 30 mg Product Wasted: 15 mg Insulin regular 7 unit, Route: Inactive IV, ONCE, 2014 [facility] Dosing Weight [facility] 153.722, kg, Start date: 01/28/15 15:20:00, Stop date: 01/28/15 15:20:00 Zofran Notes: (Same No Longer as: Zofran) Active 2014 [facility] MEDICATION City WASTE Product Size: 4 mg Product Wasted: ___ mg Benadryl Notes: (Same No Longer as: Benadryl) Active 2014 [facility] naloxone Notes: (Same No Longer as: Narcan) Active 2014 [facility] morphine 1 mg/ml Notes: Dose: No Longer MEL[employer] (30 mg/30 mL) Delay: Active 2014 [facility] INJ Syringe 30 mg Basal [facility] rate: 4hr limit: (Same as:Halima-Josiane) Phenergan 25 mg, 50 mL, No Longer 200 ml/hr, Active 2014 [facility] Route: IVPB, [facility] Drug Form: SOLN, Q4H, PRN Nausea & Vomiting, Start date: 01/28/15 14:53:00, Duration: 30 day, Stop date: 02/27/15 14:52:00 sodium bicarbonate Notes: (sodium Inactive 01/28 8.4% bicarb 8.4% (1 2014 [facility] mEq/ml) 50 ml [facility] syringe) sodium bicarbonate 50 ml, Route: Inactive 8.4% IVP, Dosing 2014 [facility] Weight 153.722, City kg, ONCE, Start date: 01/28/15 14:41:00, Stop date: 01/28/15 14:41:00 Sodium Chloride 25 mL, Route: No Longer 0.9% IV IV, Start date: Active 2014 [facility] 01/28/15 [facility] 11:27:00, Duration: 30 day, Stop date: 02/27/15 11:26:00, PRN Line Flush BD Normal Saline Notes: (Same No Longer Flush as: BD Active 2014 [facility] Posiflush) [facility] Naloxone Notes: Same as No Longer Narcan Active 2014 [facility] Ondansetron Notes: (Same Inactive as: Zofran) 2014 [facility] MEDICATION City WASTE Product Size: 4 mg Product Wasted: ___ mg Morphine Notes: (Same Inactive as:MORPhine 2014 [facility] Sulfate) [facility] Flumazenil Notes: (Same No Longer as: Romazicon) Active 2014 [facility] chlorhexidine Notes: (Same Inactive topical 0.12% As: Peridex) 2014 [facility] ial liquid [facility] Ancef Notes: Same as: Inactive Ancef 2014 [facility] Tylenol Notes: Infuse Inactive over 15 minutes 2014 [facility] Do not exceed City 4gm/day of acetaminophen MEDICATION WASTE Product Size: 1000 mg Product Wasted: ___ mg Lantus 48 units, No Longer SUB-Q, Bedtime, Active 2014 [facility] 0 Refill(s) [facility] Etodolac 300 MG 300 mg = 1 cap, No Longer Oral Capsule PO, BID, 0 Active 2014 [facility] Refill(s) [facility] amitriptyline 10 10 mg = 1 tab, No Longer mg oral tablet PO, Bedtime, 0 Active 2014 [place] [facility] Refill(s) [facility] oxybutynin 5 mg 5 mg = 1 tab, No Longer oral tablet PO, BID, 0 Active 2014 [facility] Refill(s) [facility] metoprolol 75 mg, PO, No Longer tartrate 50 mg Bedtime, 0 Active 2014 [facility] oral tablet Refill(s) [facility] metoprolol 50 mg 50 mg = 1 tab, No Longer oral tablet, PO, Daily, 0 [facility] Hydrochlorothiazid 50 mg, PO, No Longer MH e Daily, 0 Active 2014 [facility] Refill(s) [facility] losartan 100 mg 100 mg = 1 tab, No Longer oral tablet PO, Daily, 0 Active 2014 [facility] Refill(s) [facility] Lantus 60 units, No Longer SUB-Q, Daily, 0 Active 2014 [facility] Refill(s) [facility] Metformin 1,000 mg = 1 No Longer hydrochloride 1000 tab, PO, BID, 0 Active 2014 [facility] Oral Tablet Refill(s) [facility] [Glucophage] Allergies, Adverse Reactions, Alerts Substance Category Reaction Severity Reaction Status Date Comments S ource type Reported Bacitracin, Assertion Drug Active Topical allergy [place] Immunizations Immunization Date Given Site Status Last Updated Comments Marianne rce influenza virus 03/06/2015 Not Given Mis naila vaccine, Neuro, inactivated [facility] [place] [facility] ity pneumococcal 02/18/2015 Not Given Mische r 23-valent vaccine Ne uro,[facility] ity Results Order Name Results Value Reference Date Interpretation Comments Marianne rce Range HEMATOLOGY WBC 34.7 3.7 - 10.4 02/19 [place] HEMATOLOGY RBC 4.19 4.20 - 02/19 5.40 [place] HEMATOLOGY Hgb 10.2 12.0 - 02/19 16.0 [place] HEMATOLOGY Hct 32.9 36.0 - 02/19 48.0 [place] HEMATOLOGY MCV 78.4 80.0 - 02/19 98.0 [place] HEMATOLOGY MCH 24.3 27.0 - 02/19 31.0 [place] HEMATOLOGY MCHC 30.9 32.0 - 02/19 36.0 [place] HEMATOLOGY RDW 24.3 11.5 - 02/19 14.5 [place] HEMATOLOGY Platelet 601 133 - 450 02/19 [place] HEMATOLOGY MPV 9.4 7.4 - 10.4 02/19 [place] HEMATOLOGY Microcyte 1+ None Seen 02/19 *ABN* [place] (02/20/20 8:55 AM) HEMATOLOGY Neutrophils 23.9 1.5 - 8.1 02/19 # [place] HEMATOLOGY Lymphocytes 3.1 1.0 - 5.5 02/19 # [place] HEMATOLOGY Monocytes # 0.7 0.0 - 0.8 02/19 [place] HEMATOLOGY Eosinophils 1.0 0.0 - 0.5 02/19 [facility] # /2019 [place] HEMATOLOGY Basophils # 2.4 0.0 - 0.2 02/19 [place] HEMATOLOGY Segs 65.0 45.0 - 02/19 [facility] 75.0 [place] HEMATOLOGY Bands 4.0 0.0 - 11.0 02/19 [place] HEMATOLOGY Lymphocytes 9.0 20.0 - 02/19 [facility] 40.0 [place] HEMATOLOGY Monocytes 2.0 2.0 - 12.0 02/19 [place] HEMATOLOGY Eosinophils 3.0 0.0 - 4.0 02/19 [place] HEMATOLOGY Basophils 7.0 0.0 - 1.0 02/19 [place] HEMATOLOGY Metamyelocyt 3.0 0.0 - 1.0 02/19 es [place] HEMATOLOGY Myelocytes 7.0 <=0.0 % 02/19 [place] HEMATOLOGY Atypical 0.0 <=0.0 % 02/19 Lymphs [place] HEMATOLOGY Plt Morph Normal Normal 02/19 (02/20/20 8:55 AM) [facility] HEMATOLOGY Anisocyte 1+ None Seen 02/19 *ABN* /2019 [place] (02/20/20 8:55 AM) HEMATOLOGY Hypochrom 1+ None Seen 02/19 (02/20/20 8:55 AM) [facility] HEMATOLOGY Polychrom Moderate None Seen 02/19 *ABN* /2019 [place] (02/20/20 8:55 AM) HEMATOLOGY Retic Auto 3.2 0.5 - 1.5 02/19 [place] HEMATOLOGY PT 13.4 12.0 - 02/18 [place] 14.7 /[address] [facility] HEMATOLOGY INR 1.04 0.85 - 02/18 [place] 1.[address] [facility] HEMATOLOGY PTT 27.3 22.9 - 02/18 [place] 35.[address] [facility] HEMATOLOGY PTT 46.2 22.9 - 02/17 [place] 35.[address] [facility] HEMATOLOGY PTT 125.8 22.9 - 08 Result [place] 35. Comment: [facility] Result(s) called to Kristyn Dutton at 02/17/2019 10:31 by Jalil Torre. Read back OK. ELECTROLYTE AGAP 19.5 10.0 - 02/17 [facility] S 20.[address] [facility] ELECTROLYTE Sodium Lvl 140 135 - 145 02/[place] [facility] ELECTROLYTE Potassium 4.5 3.5 - 5.1 02/17 [facility] S Lvl /[address] [facility] ELECTROLYTE Chloride Lvl 104 95 - 109 02/17 [place] S [facility] ELECTROLYTE CO2 21 24 - 32 02/17 [facility] S /[address] [facility] ELECTROLYTE Glucose Lvl 103 70 - 99 02/17 [facility] S /[address] [facility] ELECTROLYTE BUN 23 7 - 22 02/17 [facility] S /[address] [facility] ELECTROLYTE Creatinine 1.07 0.50 - 02/17 [facility] S Lvl 1.[address] [facility] ELECTROLYTE Calcium Lvl 8.6 8.5 - 10.5 02/[place] [facility] ELECTROLYTE eGFR 52 02/17 [facility] Comment: The Medical eGFR is Center calculated using the CKD-EPI formula. In most young, healthy individuals the eGFR will be >90 mL/min/1.73m2 . The eGFR declines with age. An eGFR of 60-89 may be normal in some populations, particularly the elderly, for whom the CKD-EPI formula has not been extensively validated. Use of the eGFR is not recommended in the following populations:< br/>
Pao viduals with unstable creatinine concentration s, including patients and those with serious co-morbid conditions.<b r/>
Patie nts with extremes in muscle mass or diet.

The data above are obtained from the National Kidney Disease Education Program (NKDEP) which additionally recommends that when the eGFR is used in patients with extremes of body mass index for purposes of drug dosing, the eGFR should be multiplied by the estimated BMI. HEMATOLOGY WBC 9.4 3.7 - 10.4 02/[address] [facility] HEMATOLOGY RBC 3.85 4.20 - 02/17 [facility] 5.[address] [facility] HEMATOLOGY Hgb 13.2 12.0 - 02/17 [facility] 16.[address] [facility] HEMATOLOGY Hct 38.5 36.0 - 02/17 [facility] 48.[address] [facility] HEMATOLOGY MCV 100.1 80.0 - 02/17 [place] 98.0 /2019 [facility] HEMATOLOGY MCH 34.3 27.0 - 09/08 [place] 31.0 /2019 [facility] HEMATOLOGY MCHC 34.2 32.0 - 09/08 [place] 36.0 /[address] [facility] HEMATOLOGY RDW 14.8 11.5 - 09 [place] 14.5 /[address] [facility] HEMATOLOGY Platelet 227 133 - 450 09/ /[address] [facility] HEMATOLOGY MPV 9.2 7.4 - 10.4 09/ /[address] [facility] HEMATOLOGY Segs 88.2 45.0 - 09/08 [place] 75.0 /[address] [facility] HEMATOLOGY Lymphocytes 9.0 20.0 - 0908 [place] 40.0 /[address] [facility] HEMATOLOGY Monocytes 2.4 2.0 - 12.0 02/17 [facility] /[address] [facility] HEMATOLOGY Eosinophils 0.1 0.0 - 4.0 02/17 [facility] /[address] [facility] HEMATOLOGY Basophils 0.3 0.0 - 1.0 02/17 [facility] [address] [facility] HEMATOLOGY Neutrophils 8.3 1.5 - 8.1 02/17 [place] /[address] [facility] HEMATOLOGY Lymphocytes 0.8 1.0 - 5.5 02/17 [place] # /[address] [facility] HEMATOLOGY Monocytes # 0.2 0.0 - 0.8 02/17 [facility] /[address] [facility] HEMATOLOGY Macrocyte 1+ None Seen 02/17 [facility] *ABN* /2018 Medical (02/17/19 4:33 AM) Center HEMATOLOGY PT 18.3 12.0 - 02/17 [place] 14.7 /[address] [facility] HEMATOLOGY INR 1.55 0.85 - 02/17 [place] 1.17 /[address] [facility] HEMATOLOGY Segs 90.6 45.0 - 0908 [place] 75.0 /[address] [facility] HEMATOLOGY Lymphocytes 7.2 20.0 - 0908 [place] 40.[address] [facility] HEMATOLOGY Monocytes 1.7 2.0 - 12.0 08 [facility] [facility] HEMATOLOGY Basophils 0.5 0.0 - 1.0 0908 [facility] HEMATOLOGY Neutrophils 9.5 1.5 - 8.1 09 [place] # /[address] [facility] HEMATOLOGY Lymphocytes 0.8 1.0 - 5.5 02/17 [place] # /2019 [facility] [place] HEMATOLOGY Monocytes # 0.2 0.0 - 0.8 02/17 [place] [facility] HEMATOLOGY Basophils # 0.1 0.0 - 0.2 02/[place] [facility] HEMATOLOGY Macrocyte 1+ None Seen 02/17 [facility] *ABN* /2018 Medical (02/17/19 1:17 AM) [place] HEMATOLOGY WBC 10.5 3.7 - 10.4 02/[address] [facility] HEMATOLOGY RBC 3.62 4.20 - 02/17 [place] 5.[address] [facility] HEMATOLOGY Hgb 12.2 12.0 - 02/17 [place] 16.[address] [facility] HEMATOLOGY Hct 36.4 36.0 - 02/[address] [facility] HEMATOLOGY MCV 100.7 80.0 - 02/[address] [facility] HEMATOLOGY MCH 33.8 27.0 - 02/17 [place] 31.[address] [facility] HEMATOLOGY MCHC 33.6 32.0 - 02/[address] [facility] HEMATOLOGY RDW 15.0 11. - 02/[address] [facility] HEMATOLOGY Platelet 215 133 - 450 02/[address] [facility] HEMATOLOGY MPV 8.6 7.4 - 10.4 02/[address] [facility] HEMATOLOGY PT 18.7 12.0 - 02/[address] [facility] HEMATOLOGY INR 1.60 0.85 - 02/16 [place] 1.[address] [facility] HEMATOLOGY WBC 12.4 3.7 - 10.4 02/[address] [facility] HEMATOLOGY RBC 4.07 4.20 - 02/16 [place] 5.[address] [facility] HEMATOLOGY Hgb 13.3 12.0 - 02/16 [place] 16.[address] [facility] HEMATOLOGY Hct 39.7 36.0 - 02/16 [place] 48.[address] [facility] HEMATOLOGY MCV 97.6 80.0 - 02/16 [place] 98.[address] [facility] HEMATOLOGY MCH 32.8 27.0 - 02/16 [place] 31.[address] [facility] HEMATOLOGY MCHC 33.6 32.0 - 02/16 [place] 36.[address] [facility] HEMATOLOGY RDW 14.9 11.5 - 02/[address] [facility] HEMATOLOGY Platelet 237 133 - 450 02/16 [facility] HEMATOLOGY MPV 8.8 7.4 - 10.4 02/16 [facility] HEMATOLOGY Plt Morph Normal Normal 02/16 [facility] (02/16/19 9:17 AM) /[address] [facility] HEMATOLOGY Segs 73.8 45.0 - 02/16 [place] 75.0 /[address] [facility] HEMATOLOGY Lymphocytes 17.3 20.0 - 02/16 [place] 40.0 /[address] [facility] HEMATOLOGY Monocytes 7.5 2.0 - 12.0 02/16 [facility] /[address] [place] [address] HEMATOLOGY Eosinophils 0.1 0.0 - 4.0 02/16 [facility] HEMATOLOGY Basophils 1.3 0.0 - 1.0 02/16 [facility] HEMATOLOGY Neutrophils 9.2 1.5 - 8.1 02/16 [facility] # /[address] [facility] HEMATOLOGY Lymphocytes 2.2 1.0 - 5.5 02/16 [facility] # /[address] [facility] HEMATOLOGY Monocytes # 0.9 0.0 - 0.8 02/16 [facility] HEMATOLOGY Basophils # 0.2 0.0 - 0.2 02/16 [facility] HEMATOLOGY Anisocyte 1+ None Seen 02/16 [facility] *ABN* /2018 [facility] (02/16/19 9:17 AM) [place] CHEM PANEL Lipase Lvl 68 73 - 393 02/[address] CHEM PANEL Total 6.0 6.4 - 8.4 02/16 [facility] Protein [facility] CHEM PANEL Albumin Lvl 2.9 3.5 - 5.0 02/16 [facility] CHEM PANEL ALT 11 0 - 65 02/[address] CHEM PANEL AST 13 0 - 37 02/[address] CHEM PANEL Alk Phos 41 39 - 136 02/[address] CHEM PANEL Bili Total 0.7 0.2 - 1.3 02/[address] CHEM PANEL Bili Direct 0.1 0.0 - 0.3 02/16 [facility] [address] [place] [address] CHEM PANEL Bili 0.6 0.0 - 1.0 02/16 [facility] Indirect [facility] CHEM PANEL Globulin 3.1 2.7 - 4.2 02/16 [facility] [address] [place] [address] CHEM PANEL A/G Ratio 0.9 0.7 - 1.6 02/[address] CHEM PANEL Lactic Acid 1.0 0.5 - 2.2 02/16 [facility] BLOOD BANK ABO/Rh A POS 02/16 [facility] RESULTS [facility] BLOOD BANK Antibody Negative 02/16 [facility] RESULTS Scrn (02/16/19 5:13 AM) [facility] CHEM PANEL Lactic Acid 1.3 0.5 - 2.2 02/16 [facility] ELECTROLYTE AGAP 16.0 10.0 - 02/16 [facility] 20.[address] [facility] ELECTROLYTE Glucose Lvl 116 70 - 99 02/16 [facility] ELECTROLYTE BUN 28 7 - 22 02/16 [facility] ELECTROLYTE Creatinine 1.31 0.50 - 02/16 [facility] Lvl 1.[address] [facility] ELECTROLYTE Sodium Lvl 139 135 - 145 02/16 [facility] ELECTROLYTE Potassium 5.0 3.5 - 5.1 02/16 [facility] [place] [facility] [facility] ELECTROLYTE Chloride Lvl 102 95 - 109 02/16 [facility] ELECTROLYTE CO2 26 24 - 32 02/[address] ELECTROLYTE Calcium Lvl 8.5 8.5 - 10.5 02/[place] [facility] ELECTROLYTE eGFR 41 02/16 Result [facility] Comment: The Medical eGFR is Center calculated using the CKD-EPI formula. In most young, healthy individuals the eGFR will be >90 mL/min/1.73m2 . The eGFR declines with age. An eGFR of 60-89 may be normal in some populations, particularly the elderly, for whom the CKD-EPI formula has not been extensively validated. Use of the eGFR is not recommended in the following populations:< br/>
Pao viduals with unstable creatinine concentration s, including patients and those with serious co-morbid conditions.<b r/>
Patie nts with extremes in muscle mass or diet.

The data above are obtained from the National Kidney Disease Education Program (NKDEP) which additionally recommends that when the eGFR is used in patients with extremes of body mass index for purposes of drug dosing, the eGFR should be multiplied by the estimated BMI. HEMATOLOGY Eosinophils 0.2 0.0 - 4.0 02/[address] [facility] HEMATOLOGY Basophils # 0.1 0.0 - 0.2 02/[address] [facility] HEMATOLOGY MCV 91.6 80.0 - 03/06 [facility] 98.0 /2014 [facility] HEMATOLOGY Hct 29.8 36.0 - 03/06 [facility] 48.0 [facility] HEMATOLOGY MPV 9.6 7.4 - 10.4 03/06 [facility] [facility] HEMATOLOGY RDW 15.4 11.5 - 03/06 MH 14.5 /2014 [facility] HEMATOLOGY Platelet 277 133 - 450 03/06 [facility] HEMATOLOGY MCHC 32.2 32.0 - 03/06 36.0 [facility] HEMATOLOGY MCH 29.5 27.0 - 03/06 MH 31.0 [facility] HEMATOLOGY Hgb 9.6 12.0 - 03/06 MH 16.0 [facility] HEMATOLOGY RBC 3.25 4.20 - 03/06 MH 5.40 /2014 [facility] HEMATOLOGY WBC 7.3 3.7 - 10.4 03/06 [facility] CHEM PANEL Magnesium 1.4 1.8 - 2.4 03/05 Lvl [facility] CHEM PANEL eGFR 89 03/05 [facility] Comment: The [facility] eGFR is City calculated using the CKD-EPI formula. In most young, healthy individuals the eGFR will be >90 mL/min/1.73m2 . The eGFR declines with age. An eGFR of 60-89 may be normal in some populations, particularly the elderly, for whom the CKD-EPI formula has not been extensively validated. Use of the eGFR is not recommended in the following populations:< br/>
Pao viduals with unstable creatinine concentration s, including patients and those with serious co-morbid conditions.<b r/>
Patie nts with extremes in muscle mass or diet.

The data above are obtained from the National Kidney Disease Education Program (NKDEP) which additionally recommends that when the eGFR is used in patients with extremes of body mass index for purposes of drug dosing, the eGFR should be multiplied by the estimated BMI. CHEM PANEL Chloride Lvl 106 95 - 109 03/05 /2014 [facility] CHEM PANEL Calcium Lvl 8.2 8.5 - 10.5 03/05 [facility] CHEM PANEL Sodium Lvl 139 135 - 145 03/05 [facility] CHEM PANEL Potassium 4.5 3.5 - 5.1 03/05 MH Lvl /2014 [facility] CHEM PANEL Creatinine 0.7 0.5 - 1.4 03/05 MH Lvl /2014 [facility] CHEM PANEL Phosphorus 2.5 2.5 - 4.5 03/05 [facility] CHEM PANEL CO2 28 24 - 32 03/05 [facility] CHEM PANEL BUN 11 7 - 22 03/05 [facility] CHEM PANEL Glucose Lvl 130 70 - 99 03/05 [facility] CHEM PANEL Albumin Lvl 2.0 3.5 - 5.0 03/05 [facility] CHEM PANEL AGAP 9.5 10.0 - 03/05 MH 20.0 [facility] HEMATOLOGY RBC 3.37 4.20 - 03/05 MH 5.40 /2014 [facility] HEMATOLOGY Hgb 9.9 12.0 - 03/05 MH 16.0 [facility] HEMATOLOGY Hct 30.5 36.0 - 03/05 MH 48.0 /2014 [facility] HEMATOLOGY WBC 8.0 3.7 - 10.4 03/05 [facility] HEMATOLOGY Platelet 269 133 - 450 03/05 /2014 [facility] HEMATOLOGY MPV 9.6 7.4 - 10.4 03/05 /2014 [facility] HEMATOLOGY MCV 90.5 80.0 - 03/05 98.0 /2014 [facility] HEMATOLOGY MCH 29.4 27.0 - 03/05 MH 31.0 /2014 [facility] HEMATOLOGY MCHC 32.5 32.0 - 03/05 MH 36.0 [facility] HEMATOLOGY RDW 15.5 11.5 - 03/05 MH 14.5 /2014 [facility] URINE AND UA Renal Epi FEW <=0 03/04 STOOL /2014 [facility] URINE AND UA <=1.0 0.1 - 1.0 03/04 STOOL Urobilinogen mg/dL /2014 [facility] URINE AND UA Ketones Negative 03/04 STOOL /2014 [facility] URINE AND UA Brandywine Yeast Few /HPF None Seen 03/04 STOOL /HPF /2014 [facility] URINE AND Micro? Performed 03/04 STOOL *NA* /2014 [facility] (03/04/15 10:59 AM) [facility] URINE AND UA WBC 54 0 - 5 03/04 STOOL /2014 [facility] URINE AND UA Nitrite Negative Negative 03/04 STOOL (03/04/15 10:59 AM) /2014 [facility] URINE [facility] UA Leuk Est Small Negative 03/04 STOOL *ABN* /2014 [facility] (03/04/15 10:59 AM) [facility] URINE AND UA Bili Negative Negative 03/04 STOOL *NA* /2014 [facility] (03/04/15 10:59 AM) [facility] URINE AND UA Blood Small Negative 03/04 STOOL *ABN* /2014 [facility] (03/04/15 10:59 AM) [facility] URINE AND UA Glucose Negative Negative 03/04 STOOL mg/dL mg/dL /2014 [facility] URINE AND UA pH 8.0 5.0 - 8.0 03/04 STOOL /2014 [facility] URINE AND UA Protein 30 mg/dL Negative 03/04 STOOL mg/dL /2014 [facility] URINE AND UA Hyal Cast 3 0 - 2 03/04 STOOL /2014 [facility] URINE AND UA Mucus Few /LPF None Seen 03/04 STOOL /LPF /2014 [facility] URINE AND UA Bacteria Occasional None Seen 03/04 STOOL /HPF /HPF /2014 [facility] URINE AND UA RBC 37 0 - 2 03/04 STOOL [facility] URINE AND UA Turbidity Slight Clear 03/04 STOOL *ABN* /2014 [facility] (03/04/15 10:59 AM) [facility] URINE AND UA Spec Grav 1.012 <=1.030 03/04 STOOL /2014 [facility] URINE AND UA Color Light Yellow Yellow 03/04 STOOL *NA* /2014 [facility] (03/04/15 10:59 AM) [facility] CHEM PANEL Globulin 5.3 2.0 - 4.0 03/02 [facility] CHEM PANEL A/G Ratio 0.4 0.7 - 1.6 03/02 [facility] CHEM PANEL AGAP 9.4 10.0 - 03/02 MH 20.0 [facility] CHEM PANEL B/C Ratio 14 6 - 25 03/02 [facility] CHEM PANEL AST 24 0 - 37 03/02 [facility] CHEM PANEL Bili Total 0.4 0.2 - 1.3 03/02 [facility] CHEM PANEL Alk Phos 100 39 - 136 03/02 [facility] CHEM PANEL ALT 16 0 - 65 03/02 [facility] CHEM PANEL Total 7.4 6.4 - 8.4 03/02 [facility] CHEM PANEL eGFR 66 03/02 Result Comment: The [facility] eGFR is City calculated using the CKD-EPI formula. In most young, healthy individuals the eGFR will be >90 mL/min/1.73m2 . The eGFR declines with age. An eGFR of 60-89 may be normal in some populations, particularly the elderly, for whom the CKD-EPI formula has not been extensively validated. Use of the eGFR is not recommended in the following populations:< br/>
Pao viduals with unstable creatinine concentration s, including patients and those with serious co-morbid conditions.<b r/>
Patie nts with extremes in muscle mass or diet.

The data above are obtained from the National Kidney Disease Education Program (NKDEP) which additionally recommends that when the eGFR is used in patients with extremes of body mass index for purposes of drug dosing, the eGFR should be multiplied by the estimated BMI. CHEM PANEL Creatinine 0.9 0.5 - 1.4 03/02 [facility] CHEM PANEL Sodium Lvl 135 135 - 145 03/02 [facility] CHEM PANEL Potassium 4.4 3.5 - 5.1 03/02 [facility] CHEM PANEL Chloride Lvl 101 95 - 109 03/02 [facility] CHEM PANEL Albumin Lvl 2.1 3.5 - 5.0 03/02 [facility] CHEM PANEL Calcium Lvl 8.3 8.5 - 10.5 03/02 [facility] CHEM PANEL Glucose Lvl 125 70 - 99 03/02 [facility] CHEM PANEL BUN 13 7 - 22 03/02 [facility] CHEM PANEL CO2 29 24 - 32 03/02 [facility] HEMATOLOGY PT 14.4 12.0 - 03/02 MH 14.7 [facility] HEMATOLOGY INR 1.09 0.85 - 03/02 MH 1. [facility] HEMATOLOGY MCHC 32.1 32.0 - 03/02 MH 36.0 [facility] HEMATOLOGY MCH 29.0 27.0 - 03/02 MH 31.0 /2014 [facility] HEMATOLOGY MPV 9.5 7.4 - 10.4 03/02 MH /2014 [facility] HEMATOLOGY Platelet 260 133 - 450 03/02 /2014 [facility] HEMATOLOGY RDW 15.9 11.5 - 03/02 MH 14.5 /2014 [facility] HEMATOLOGY MCV 90.3 80.0 - 03/02 MH 98.0 /2014 [facility] HEMATOLOGY Hct 33.3 36.0 - 03/02 MH 48.0 /2014 [facility] HEMATOLOGY Hgb 10.7 12.0 - 03/02 MH 16.0 /2014 [facility] HEMATOLOGY RBC 3.68 4.20 - 03/02 MH 5.40 /2014 [facility] HEMATOLOGY WBC 7.7 3.7 - 10.4 03/02 /2014 [facility] HEMATOLOGY Basophils # 0.0 0.0 - 0.2 03/02 /2014 [facility] HEMATOLOGY Eosinophils 0.4 0.0 - 0.5 03/02 MH # /2014 [facility] HEMATOLOGY Monocytes # 0.8 0.0 - 0.8 03/02 /2014 [facility] HEMATOLOGY Lymphocytes 2.3 1.0 - 5.5 03/02 MH # /2014 [facility] HEMATOLOGY Segs-Bands # 4.2 1.5 - 8.1 03/02 /2014 [facility] HEMATOLOGY Basophils 0.5 0.0 - 1.0 03/02 /2014 [facility] HEMATOLOGY Eosinophils 4.7 0.0 - 4.0 03/02 /2014 [facility] HEMATOLOGY Monocytes 10.4 2.0 - 12.0 03/02 /2014 [facility] HEMATOLOGY Lymphocytes 29.5 20.0 - 03/02 MH 40.0 /2014 [facility] HEMATOLOGY Segs 54.9 45.0 - 03/02 MH 75.0 /2014 [facility] HEMATOLOGY PTT 28.8 22.9 - 03/02 MH 35.8 /2014 [facility] CHEM PANEL Magnesium 1.7 1.8 - 2.4 02/17 MH Lvl /2014 [facility] ELECTROLYTE AGAP 9.7 10.0 - 02/17 MH S 20.0 [facility] ELECTROLYTE CO2 30 24 - 32 02/17 MH S /2014 [facility] ELECTROLYTE BUN 16 7 - 22 02/17 S /2014 [facility] ELECTROLYTE Glucose Lvl 92 70 - 99 09 MH S /2014 [facility] ELECTROLYTE eGFR 58 09/08 Result S /2014 Comment: The [facility] eGFR is City calculated using the CKD-EPI formula. In most young, healthy individuals the eGFR will be >90 mL/min/1.73m2 . The eGFR declines with age. An eGFR of 60-89 may be normal in some populations, particularly the elderly, for whom the CKD-EPI formula has not been extensively validated. Use of the eGFR is not recommended in the following populations:< br/>
Pao viduals with unstable creatinine concentration s, including patients and those with serious co-morbid conditions.<b r/>
Patie nts with extremes in muscle mass or diet.

The data above are obtained from the National Kidney Disease Education Program (NKDEP) which additionally recommends that when the eGFR is used in patients with extremes of body mass index for purposes of drug dosing, the eGFR should be multiplied by the estimated BMI. ELECTROLYTE Creatinine 1.0 0.5 - 1.4 09/ S Lvl /2014 [facility] ELECTROLYTE Sodium Lvl 140 135 - 145 09/ S /2014 [facility] ELECTROLYTE Potassium 4.7 3.5 - 5.1 09/ S Lvl /2014 [facility] ELECTROLYTE Chloride Lvl 105 95 - 109 09/ S /2014 [facility] ELECTROLYTE Calcium Lvl 7.5 8.5 - 10.5 / S /2014 [facility] HEMATOLOGY Eosinophils 0.2 0.0 - 0.5 09/08 MH # /2014 [facility] HEMATOLOGY Monocytes # 1.3 0.0 - 0.8 / /2014 [facility] HEMATOLOGY Segs-Bands # 6.3 1.5 - 8.1 / /2014 [facility] HEMATOLOGY Lymphocytes 1.6 1.0 - 5.5 09/08 MH # /2014 [facility] HEMATOLOGY Eosinophils 2.6 0.0 - 4.0 / /2014 [facility] HEMATOLOGY Basophils 0.4 0.0 - 1.0 / /2014 [facility] HEMATOLOGY Segs 66.6 45.0 - 09/08 MH 75.0 /2014 [facility] HEMATOLOGY Lymphocytes 16.8 20.0 - 09/ MH 40.0 /2014 [facility] HEMATOLOGY Monocytes 13.6 2.0 - 12.0 09/ /2014 [facility] HEMATOLOGY MPV 8.9 7.4 - 10.4 09/ /2014 [facility] HEMATOLOGY RDW 15.5 11.5 - 09 MH 14.5 /2014 [facility] HEMATOLOGY MCHC 32.4 32.0 - 02/17 MH 36.0 /2014 [facility] HEMATOLOGY Platelet 432 133 - 450 09 /2014 [facility] HEMATOLOGY MCH 29.4 27.0 - 02/17 MH 31.0 /2014 [facility] HEMATOLOGY Hgb 9.0 12.0 - 02/17 MH 16.0 /2014 [facility] HEMATOLOGY MCV 90.7 80.0 - 02/17 MH 98.0 /2014 [facility] HEMATOLOGY Hct 27.8 36.0 - 02/17 MH 48.0 /2014 [facility] HEMATOLOGY RBC 3.06 4.20 - 02/17 MH 5.40 /2014 [facility] HEMATOLOGY WBC 9.4 3.7 - 10.4 02/17 [facility] CHEM PANEL Creatinine 1.1 0.5 - 1.4 02/16 Lvl /2014 [facility] CHEM PANEL Potassium 4.8 3.5 - 5.1 02/16 Lvl [facility] CHEM PANEL Sodium Lvl 139 135 - 145 02/16 [facility] CHEM PANEL Chloride Lvl 104 95 - 109 02/16 [facility] CHEM PANEL Calcium Lvl 7.7 8.5 - 10.5 02/16 [facility] CHEM PANEL eGFR 52 02/16 [facility] Comment: The [facility] eGFR is [place] calculated using the CKD-EPI formula. In most young, healthy individuals the eGFR will be >90 mL/min/1.73m2 . The eGFR declines with age. An eGFR of 60-89 may be normal in some populations, particularly the elderly, for whom the CKD-EPI formula has not been extensively validated. Use of the eGFR is not recommended in the following populations:< br/>
Pao viduals with unstable creatinine concentration s, including patients and those with serious co-morbid conditions.<b r/>
Patie nts with extremes in muscle mass or diet.

The data above are obtained from the National Kidney Disease Education Program (NKDEP) which additionally recommends that when the eGFR is used in patients with extremes of body mass index for purposes of drug dosing, the eGFR should be multiplied by the estimated BMI. CHEM PANEL CO2 26 24 - 32 02/16 [facility] CHEM PANEL Glucose Lvl 144 70 - 99 09/ MH /2014 [facility] CHEM PANEL BUN 20 7 - 22 09 /2014 [facility] CHEM PANEL AGAP 13.8 10.0 - 02/16 MH 20.0 /2014 [facility] CHEM PANEL Phosphorus 3.7 2.5 - 4.5 09 /2014 [facility] CHEM PANEL Magnesium 1.6 1.8 - 2.4 / MH Lvl /2014 [facility] HEMATOLOGY WBC 9.6 3.7 - 10.4 09 /2014 [facility] HEMATOLOGY RBC 3.11 4.20 - 02/16 MH 5.40 /2014 [facility] HEMATOLOGY Hgb 9.2 12.0 - 02/16 MH 16.0 /2014 [facility] HEMATOLOGY MCH 29.6 27.0 - 02/16 MH 31.0 /2014 [facility] HEMATOLOGY Hct 28.0 36.0 - 02/16 MH 48.0 /2014 [facility] HEMATOLOGY MCV 90.1 80.0 - 02/16 MH 98.0 /2014 [facility] HEMATOLOGY MCHC 32.8 32.0 - 02/16 MH 36.0 /2014 [facility] HEMATOLOGY MPV 8.4 7.4 - 10.4 09 MH /2014 [facility] HEMATOLOGY Platelet 415 133 - 450 09 /2014 [facility] HEMATOLOGY RDW 15.5 11.5 - 02/16 MH 14.5 /2014 [facility] HEMATOLOGY Eosinophils 2.9 0.0 - 4.0 02/16 /2014 [facility] HEMATOLOGY Segs-Bands # 6.2 1.5 - 8.1 02/16 /2014 [facility] HEMATOLOGY Monocytes 16.4 2.0 - 12.0 02/16 /2014 [facility] HEMATOLOGY Lymphocytes 15.6 20.0 - 02/16 MH 40.0 /2014 [facility] HEMATOLOGY Basophils 0.7 0.0 - 1.0 09 MH /2014 [facility] HEMATOLOGY Segs 64.4 45.0 - 02/16 MH 75.0 /2014 [facility] HEMATOLOGY Basophils # 0.1 0.0 - 0.2 02/16 /2014 [facility] HEMATOLOGY Lymphocytes 1.5 1.0 - 5.5 02/16 MH # /2014 [facility] HEMATOLOGY Eosinophils 0.3 0.0 - 0.5 02/16 MH # /2014 [facility] HEMATOLOGY Monocytes # 1.6 0.0 - 0.8 02/16 /2014 [facility] BLOOD BANK Antibody Negative 02/15 RESULTS Scrn (02/15/15 2:25 PM) /2014 [facility] BLOOD BANK ABO/Rh A POS 02/15 RESULTS /2014 [facility] BLOOD [facility] RBC product Product available 1 02/15 Resul t RESULTS (02/15/15 1:09 PM) /2014 Comment: Kenrickcarina cai 02/15/2015 [facility] 15:26 [id number]
NOTIFIED [facility] HEMATOLOGY Hgb 7.6 12.0 - 02/15 MH 16.0 /2014 [facility] HEMATOLOGY Hct 23.4 36.0 - 02/15 MH 48.0 /2014 [facility] CHEM PANEL Albumin Lvl 1.5 3.5 - 5.0 02/15 [facility] CHEM PANEL BUN 22 7 - 22 02/15 [facility] CHEM PANEL CO2 26 24 - 32 02/15 /2014 [facility] CHEM PANEL eGFR 58 02/15 Result Comment: The [facility] eGFR is City calculated using the CKD-EPI formula. In most young, healthy individuals the eGFR will be >90 mL/min/1.73m2 . The eGFR declines with age. An eGFR of 60-89 may be normal in some populations, particularly the elderly, for whom the CKD-EPI formula has not been extensively validated. Use of the eGFR is not recommended in the following populations:< br/>
Pao viduals with unstable creatinine concentration s, including patients and those with serious co-morbid conditions.<b r/>
Patie nts with extremes in muscle mass or diet.

The data above are obtained from the National Kidney Disease Education Program (NKDEP) which additionally recommends that when the eGFR is used in patients with extremes of body mass index for purposes of drug dosing, the eGFR should be multiplied by the estimated BMI. CHEM PANEL Sodium Lvl 138 135 - 145 02/15 [facility] CHEM PANEL Creatinine 1.0 0.5 - 1.4 02/15 Lvl /2014 [facility] CHEM PANEL Calcium Lvl 7.7 8.5 - 10.5 02/15 [facility] CHEM PANEL Chloride Lvl 104 95 - 109 02/15 [facility] CHEM PANEL Potassium 5.2 3.5 - 5.1 02/15 Lvl /2014 [facility] CHEM PANEL Glucose Lvl 124 70 - 99 09/ /2014 [facility] CHEM PANEL Phosphorus 4.3 2.5 - 4.5 09 /2014 [facility] CHEM PANEL AGAP 13.2 10.0 - 02/15 MH 20.0 /2014 [facility] CHEM PANEL Magnesium 1.7 1.8 - 2.4 09 Lvl /2014 [facility] HEMATOLOGY MCH 29.7 27.0 - 02/15 MH 31.0 /2014 [facility] HEMATOLOGY MCHC 32.4 32.0 - 02/15 MH 36.0 /2014 [facility] HEMATOLOGY MCV 91.6 80.0 - 02/15 MH 98.0 /2014 [facility] HEMATOLOGY Platelet 449 133 - 450 09 /2014 [facility] HEMATOLOGY RDW 15.6 11.5 - 02/15 MH 14.5 /2014 [facility] HEMATOLOGY MPV 9.2 7.4 - 10.4 09 /2014 [facility] HEMATOLOGY WBC 13.6 3.7 - 10.4 02/15 /2014 [facility] HEMATOLOGY RBC 1.98 4.20 - 02/15 MH 5.40 /2014 [facility] IMMUNOLOGY Prealbumin 8.4 18.0 - 02/15 MH 45.0 /2014 [facility] SPECIAL Hgb A1C 7.3 <=5.6 % 02/15 CHEMISTRY /2014 [facility] CHEM PANEL Phosphorus 3.7 2.5 - 4.5 09 /2014 [facility] HEMATOLOGY Monocytes # 2.1 0.0 - 0.8 09 /2014 [facility] HEMATOLOGY Eosinophils 0.3 0.0 - 0.5 02/14 # /2014 [facility] HEMATOLOGY Segs-Bands # 8.5 1.5 - 8.1 09 /2014 [facility] HEMATOLOGY Lymphocytes 1.6 1.0 - 5.5 09 # /2014 [facility] HEMATOLOGY Basophils 0.4 0.0 - 1.0 02/14 /2014 [facility] HEMATOLOGY Eosinophils 2.5 0.0 - 4.0 02/14 /2014 [facility] HEMATOLOGY Basophils # 0.0 0.0 - 0.2 09 /2014 [facility] HEMATOLOGY Segs 67.5 45.0 - 02/14 MH 75.0 /2014 [facility] HEMATOLOGY Plt Morph Normal 02/14 (02/14/15 5:11 AM) /2014 [facility] HEMATOLOGY Monocytes 16.5 2.0 - 12.0 09 /2014 [facility] HEMATOLOGY Lymphocytes 13.1 20.0 - 09 MH 40.0 /2014 [facility] HEMATOLOGY RBC Morph Normal 02/14 (02/14/15 5:11 AM) [facility] HEMATOLOGY PTT 40.4 22.9 - 09/ MH 35.8 /2014 [facility] CHEM PANEL Bili Total 0.5 0.2 - 1.3 02/13 [facility] CHEM PANEL Alk Phos 117 39 - 136 02/13 [facility] CHEM PANEL AST 18 0 - 37 02/13 [facility] CHEM PANEL ALT 15 0 - 65 02/13 [facility] CHEM PANEL Globulin 3.9 2.0 - 4.0 02/13 [facility] CHEM PANEL A/G Ratio 0.4 0.7 - 1.6 02/13 [facility] CHEM PANEL Total 5.5 6.4 - 8.4 02/13 Protein [facility] CHEM PANEL B/C Ratio 18 6 - 25 02/13 [facility] CHEM PANEL Albumin Lvl 1.6 3.5 - 5.0 02/13 [facility] HEMATOLOGY Basophils # 0.0 0.0 - 0.2 02/13 [facility] HEMATOLOGY Macrocyte 1+ None Seen 02/13 MH *ABN* /2014 [facility] (02/13/15 4:58 AM) [facility] HEMATOLOGY Plt Morph Normal 02/13 (02/13/15 4:58 AM) [facility] CHEM PANEL AST 19 0 - 37 02/12 [facility] CHEM PANEL ALT 18 0 - 65 02/12 [facility] CHEM PANEL Bili Total 0.5 0.2 - 1.3 02/12 [facility] CHEM PANEL Alk Phos 120 39 - 136 02/12 [facility] CHEM PANEL Total 5.5 6.4 - 8.4 02/12 Protein [facility] CHEM PANEL Albumin Lvl 1.6 3.5 - 5.0 02/12 [facility] CHEM PANEL A/G Ratio 0.4 0.7 - 1.6 02/12 [facility] CHEM PANEL Globulin 3.9 2.0 - 4.0 02/12 [facility] CHEM PANEL B/C Ratio 20 6 - 25 02/12 [facility] HEMATOLOGY Polychrom Moderate None Seen 02/12 *ABN* [facility] (02/12/15 9:54 AM) [facility] [facility] HEMATOLOGY Toxic Gran Moderate None Seen 02/12 *ABN* /2014 [facility] (02/12/15 9:54 AM) [facility] HEMATOLOGY Large Plt Moderate None Seen 02/12 *ABN* [facility] (02/12/15 9:54 AM) [facility] HEMATOLOGY Plt Morph Normal 02/12 (02/12/15 9:54 AM) [facility] TOXICOLOGY Vanco Tr TND 0900 02/11 [facility] TOXICOLOGY Vanco Tr 10.7 02/11 [facility] CHEM PANEL Globulin 3.8 2.0 - 4.0 02/11 [facility] CHEM PANEL A/G Ratio 0.4 0.7 - 1.6 02/11 [facility] CHEM PANEL B/C Ratio 19 6 - 25 02/11 [facility] CHEM PANEL Total 5.4 6.4 - 8.4 02/11 [facility] CHEM PANEL ALT 19 0 - 65 02/11 [facility] CHEM PANEL Bili Total 0.5 0.2 - 1.3 02/11 [facility] CHEM PANEL AST 21 0 - 37 02/11 [facility] CHEM PANEL Alk Phos 115 39 - 136 02/11 [facility] HEMATOLOGY Large Plt Moderate None Seen 02/08 *ABN* /2014 [facility] (02/08/15 3:59 AM) [facility] HEMATOLOGY RBC Morph Normal 02/08 (02/08/15 3:59 AM) [facility] HEMATOLOGY Toxic Gran Moderate None Seen 02/07 *ABN* [facility] (02/07/15 7:14 AM) [facility] HEMATOLOGY Hypochrom 1+ None Seen 02/07 (02/07/15 7:14 AM) [facility] TOXICOLOGY Tobra Lvl 2.5 02/07 [facility] LIPIDS VLDL 31 02/06 [facility] LIPIDS LDL 30 <=99 mg/dL 02/06 (Calculated) [facility] LIPIDS Trig 155 <=149 02/06 mg/dL [facility] LIPIDS HDL 15 >=61 mg/dL 02/06 [facility] LIPIDS Chol 76 <=199 02/06 mg/dL /2014 [facility] LIPIDS CHD Risk 5.07 3.90 - 02/06 MH 5.80 /2014 [facility] PARATHYROID Ca Ion WB 1.04 1.05 - 02/06 MH PROFILE 1. [facility] PARATHYROID Ca Norm WB 1.00 1.05 - 02/06 PROFILE . [facility] HEMATOLOGY RBC Morph Normal 02/06 (02/06/15 3:49 AM) /2014 [facility] BODY FLUIDS Bili BF Type Abdomn 02/05 *NA* /2014 [facility] (02/05/15 10:59 AM) [facility] BODY FLUIDS Bili BF 4.4 02/05 [facility] URINE AND UA Glucose 150 02/04 STOOL /2014 [facility] URINE AND UA Ketones Negative 02/04 STOOL [facility] URINE AND UA <=1.0 0.1 - 1.0 02/04 STOOL Urobilinogen mg/dL /2014 [facility] URINE AND Micro? Performed 02/04 STOOL *NA* /2014 [facility] (02/04/15 9:55 AM) [facility] URINE AND UA Protein 30 mg/dL Negative 02/04 STOOL mg/dL /2014 [facility] URINE AND UA Spec Grav 1.015 <=1.030 02/04 STOOL /2014 [facility] URINE AND UA pH 5.0 5.0 - 8.0 02/04 STOOL /2014 [facility] URINE AND UA Color Yellow Yellow 02/04 STOOL *NA* /2014 [facility] (02/04/15 9:55 AM) [facility] URINE AND UA Turbidity Clear Clear 02/04 STOOL (02/04/15 9:55 AM) /2014 [facility] URINE AND UA WBC <1 0 - 5 02/04 STOOL /2014 [facility] URINE AND UA Bacteria Occasional None Seen 02/04 STOOL /HPF /HPF /2014 [facility] URINE AND UA RBC 1 0 - 2 02/04 STOOL [facility] URINE AND UA Blood Moderate Negative 02/04 STOOL *ABN* /2014 [facility] (02/04/15 9:55 AM) [facility] URINE AND UA Nitrite Negative Negative 02/04 STOOL (02/04/15 9:55 AM) /2014 [facility] URINE AND UA Bili Negative Negative 02/04 STOOL *NA* /2014 [facility] Leuk Est Negative Negative 02/04 STOOL (02/04/15 9:55 AM) /2014 [facility] PARATHYROID Ca Norm WB 0.91 1.05 - 02/04 MH PROFILE . [facility] PARATHYROID Ca Ion WB 0.93 1.05 - 02/04 MH PROFILE 07.06 [facility] HEMATOLOGY Polychrom Moderate None Seen 02/02 MH *ABN* /2014 [facility] (02/02/15 3:03 AM) [facility] HEMATOLOGY Bands 13.0 0.0 - 11.0 02/02 [facility] HEMATOLOGY Macrocyte 1+ None Seen 02/02 *ABN* /2014 [facility] (02/02/15 3:03 AM) [facility] HEMATOLOGY NRBC 4 02/02 [facility] HEMATOLOGY Atypical 0.0 <=0.0 % 02/02 Lymphs /2014 [facility] HEMATOLOGY PTT 36.9 22.9 - 02/02 MH 35.8 [facility] HEMATOLOGY PTT 42.2 22.9 - 02/01 MH 35.8 [facility] URINE CHEM U Creatinine 186.7 01/30 /2014 [facility] URINE CHEM U Sodium 18 01/30 [facility] BLOOD BANK RBC product Product available 01/30 RESULTS (01/30/15 8:08 AM) /2014 [facility] CARDIAC BNP 24 <=100 01/30 ENZYMES pg/mL /2014 [facility] CHEM PANEL Lipase Lvl 164 73 - 393 01/30 [facility] CHEM PANEL Lactic Acid 1.8 0.5 - 2.2 01/30 Lvl /2014 [facility] PARATHYROID Ca Ion WB 1.07 1.05 - 01/30 MH PROFILE . [facility] PARATHYROID Ca Norm WB 1.03 1.05 - 01/30 MH PROFILE 07.06 [facility] CARDIAC Troponin-I 0.13 0.00 - 01/30 ENZYMES 0.40 [facility] CARDIAC CK MB Index 2.0 0.0 - 2.5 01/30 ENZYMES [facility] CARDIAC CK MB 10.7 0.5 - 3.6 01/30 ENZYMES [facility] CARDIAC Total CK 538 12 - 191 01/30 ENZYMES [facility] BLOOD BANK RBC product Product available 01/30 RESULTS (01/29/15 8:18 PM) /2014 [facility] CHEM PANEL Procalcitoni 4.52 0.00 - 01/29 Result n Lvl 0.10 Comment: [facility] Result(s) called to Mireya Cooper at 01/29/2015 15:08_ by KB_. Read back OK. CARDIAC Total CK 617 12 - 191 01/29 ENZYMES /2014 [facility] CARDIAC BNP 25 <=100 01/29 ENZYMES pg/mL /2014 [facility] SPECIAL Hgb A1C 6.4 <=5.6 % 01/29 CHEMISTRY /2014 [facility] URINE CHEM U Eos None Seen None Seen 01/29 (01/29/15 1:56 PM) /2014 [facility] URINE CHEM U Chloride 15 01/29 /2014 [facility] URINE CHEM U Sodium 14 01/29 /2014 [facility] URINE CHEM U Potassium 40.1 01/29 /2014 [facility] CHEM PANEL Lactic Acid 2.2 0.5 - 2.2 01/29 Lvl /2014 [facility] CARDIAC Troponin-I 0.09 0.00 - 01/29 ENZYMES 0.40 /2014 [facility] CARDIAC Total CK 366 12 - 191 01/29 ENZYMES /2014 [facility] CARDIAC CK MB Index 1.5 0.0 - 2.5 01/29 ENZYMES /2014 [facility] CARDIAC CK MB 5.4 0.5 - 3.6 01/29 ENZYMES /2014 [facility] HEMATOLOGY INR 1.25 0.85 - 01/29 MH 1.17 /2014 [facility] HEMATOLOGY PT 15.8 12.0 - 01/29 MH 14.7 /2014 [facility] HEMATOLOGY Bands 13.0 0.0 - 11.0 01/29 [facility] HEMATOLOGY Atypical 0.0 <=0.0 % 01/29 Lymphs /2014 [facility] URINE AND UA Glucose 50mg/dl 01/29 STOOL [facility] URINE AND UA Color Amada 01/29 STOOL [facility] URINE AND UA Mucus Few /LPF None Seen 01/29 STOOL /LPF /2014 [facility] URINE AND UA WBC 10 0 - 5 01/29 STOOL /2014 [facility] URINE AND UA RBC 158 0 - 2 01/29 STOOL /2014 [facility] URINE AND UA Bacteria Moderate None Seen 01/29 STOOL /HPF /HPF /2014 [facility] URINE AND UA Ketones Trace Negative 01/29 STOOL mg/dL mg/dL /2014 [facility] URINE AND UA Protein 30 mg/dL Negative 01/29 STOOL mg/dL /2014 [facility] URINE AND UA Sq Epi Few /LPF Few /LPF 01/29 STOOL /2014 [facility] URINE AND UA Leuk Est Trace Negative 01/29 STOOL *ABN* /2014 [facility] (01/29/15 12:32 AM) [facility] URINE AND UA Nitrite Negative Negative 01/29 STOOL (01/29/15 12:32 AM) /2014 [facility] ial [facility] URINE AND UA pH 5.0 5.0 - 8.0 01/29 STOOL /2014 [facility] URINE AND UA Spec Grav 1.028 <=1.030 01/29 STOOL /2014 [facility] URINE AND UA 2.0 0.1 - 1.0 01/29 STOOL Urobilinogen /2014 [facility] URINE AND UA Blood Large Negative 01/29 STOOL *ABN* /2014 [facility] (01/29/15 12:32 AM) [facility] URINE AND UA Bili Negative Negative 01/29 STOOL *NA* /2014 [facility] (01/29/15 12:32 AM) [facility] URINE AND UA Turbidity Marked Clear 01/29 STOOL *ABN* /2014 [facility] (01/29/15 12:32 AM) [facility] CARDIAC Troponin-I 0.06 0.00 - 01/28 ENZYMES 0.40 [facility] CARDIAC CK MB Index 2.5 0.0 - 2.5 01/28 ENZYMES /2014 [facility] CARDIAC CK MB 3.6 0.5 - 3.6 01/28 ENZYMES /2014 [facility] HEMATOLOGY PT 17.6 12.0 - 01/28 14.7 /2014 [facility] HEMATOLOGY INR 1.42 0.85 - 01/28 1.17 [facility] BLOOD BANK C3 Int Negative 01/28 RESULTS (01/28/15 8:45 AM) /2014 [facility] BLOOD BANK JOVANNA Gel Int Negative 01/28 RESULTS (01/28/15 8:45 AM) /2014 [facility] BLOOD BANK ABO/Rh A POS 01/28 RESULTS /2014 [facility] BLOOD BANK Antibody Negative 01/28 RESULTS Scrn (01/28/15 8:45 AM) /2014 [facility] CHEM PANEL Vitamin D, 19 30 - 100 01/14 25-OH, Total /2014 [facility] PARATHYROID PTH Intact 104.9 11.1 - 01/14 PROFILE 79.5 /2014 [facility] SPECIAL Hgb A1C 7.0 <=5.6 % 01/14 CHEMISTRY /2014 [facility] Pathology Reports No Data Provided for This Section Diagnostic Reports Report Value Date Source Bone Marrow Bio/Aspr PROCEDURE INFORMATION: 02/20/2020 Daryn Roe VR Exam: IR Diagnostic Bone Marrow Biopsies And Asp irations Exam date and time: 02/20/2020 9:14 AM Age: 74 years old Clinical indication: Thrombocytopenia; Additiona l info: Cronic myelogenous leukemia, anemia/done in CT TECHNIQUE: Imaging protocol: Diagnostic bone marrow biopsie s and aspirations. The interpreting physician was present and supervise d the procedure. CT guidance was provided. Radiation optimization: All CT scans at this facility use at least one of these dose optimization techniques: automated exposure control; mA and/or kV adjustment per patient size (includes targeted e xams where dose is matched to clinical indication); or iterative reconstructio n. COMPARISON: No relevant prior studies available. RADIATION DOSE METRICS: Total DLP (mGy-cm): 713.98 FINDINGS: Advanced practice providers: None CONSENT AND SEDATION INFO: Consent: The procedure, risks, benefits and alternatives of the procedure were discussed. Informed consent was obtained. Time out: Timeout was performed prior to the pro cedure. Level of sedation: I administered modera te sedation throughout this procedure. The patient was monitored and observed by a hosp ital nurse, an independent trained observer. The nurse pushed medications a t my direction and monitored the patient's level of consciousness and physiol ogical status throughout. Moderate sedation record is permanently stored i n the hospital information system. Medications for sedation: 1 mg of IV Versed and 100 mcg of IV Fentanyl. Total intra-service sedation time (minutes): 12 minutes. Procedure summary: The patient was placed in the prone position. 1% lidocaine was used for local anesthesia. Using CT guidance, 11-gauge needle was advanced into the posterior right iliac bone. CT imaging confirmed proper po sitioning of the needle with the tip in the medullary bone. Approxima tely 1 cc of bone marrow was initially aspirated and given to patho logjessica. The presence of spicules was confirmed. 10 cc of bone marrow was aspirated and given to pathol bam. 2 cm long core biopsy sample of bone marrow was obtained utili zing the guide needle. The core biopsy sample was placed in formali n container and appeared grossly adequate. Pressure was applied at the puncture site with adequate h emostasis. Complications: No immediate complications. Patient tolerated th e procedure well. IMPRESSION: Successful bone marrow biopsy. Final pathology r eport is pending. Chantal Peraza MD On 02/20/2020 10:07:50 ; [id number] Abdomen 1 v for EXAM: XR ABDOMEN 1 VIEW 02/16/2019 [facility] DX DATE: 02/16/[address] INDICATION: - NGT advanced COMPARISON: Abdominal radiograph 02/16/2019, CT ab domen pelvis 02/25/2019 TECHNIQUE: Limited AP view of the abdomen for tube placement assessment. Number of images: 1 FINDINGS: Feeding tube (tip): None present. Enteric suction tube (sideho le): Enteric tube tip projects at the level of the gastroesophageal junction. Other tubes, lines and hardware: None Other: Surgical suture overl gabriel the left hemithorax is compatible with prior Eleuterio-en-Y gastric bypass surgery. Cholecystectomy clips noted. There is diffuse osteopenia. Mild to moderate degenerative disc disease is present. IMPRESSION: Enteric tube tip projects at the level of the ga stroesophageal junction. Recommend further advancemen t, however, careful placement is indicated since patient has had previous Eleuterio-en-Y gastric bypass. Abdomen 1 v for EXAM: XR ABDOMEN 1 VIEW 02/16/2019 [facility] Medical Placement DX DATE: 02/16/2019 0922 hours CDT Ce nter INDICATION: - NGT placement COMPARISON: CT abdomen pelvis 02/15/2019 TECHNIQUE: Limited AP view of the abdomen for tube placement assessment. Number of images: 1 FINDINGS: Feeding tube (tip): None present. Enteric suction tube (sideho le): Tip projects at the level just above the gastroesophageal junction. Other tubes, lines and hardw are: A tube overlying the left hemithorax is likely external to the patient. Other: Surgical suture overlies the left hemithorax compatible with prior Eleuterio-en-Y gastric bypass surgery. Cholecystectomy clips noted. Diffuse osteopenia noted. Mild-moderate degenerative disk disease is prese nt. IMPRESSION: Enteric tube tip projects at the level just above the gastroesophageal junction. Recommend further advancement. Abscess abdomen PROCEDURES: 03/03/2015 [facility] peritoneum drainage VR 1. Percutaneous drainage of left perisplenic fluid collection and placement of 10 Fr drainage catheter. 2. CT guidance 3. Moderate sedation COMPARISON: None DLP: 524 mgy-cm. SEDATION: Versed and Fentany l were given intravenously for conscious sedation. A radiology nurse monitored the vital signs throughout the procedure for 30 minutes. TECHNIQUE AND FINDINGS: Writ randy informed consent was obtained. The patient was draped and prepped in usual sterile fashion and placed supine on the CT table. 1% lidocaine was used to anesthetize the skin. CT scan was performed to loc fransisco the fluid collection. Using ultrasound guidance a 5 Ukrainian sheathed needle was advanced into the left perisplenic fluid collection. Aspiration revealed yellow cloudy fl uid. Samples were obtained for gram stain and cu ltures. Next, an 035 wire was insert ed through the catheter into the fluid collection, and after serial dilations, a 10 Fr drainage catheter was advanced and looped / locked in the fluid collection. The collection was maximally drained. No immedia te complication was seen. IMPRESSION: CT guided drain placement into a left perisplenic fluid collection (10 Fr drain placed). Approximately 15 cc yellow purulent fluid drained. Ext Upper Arterial Left upper extremity arterial ultrasound duplex 02/09/2015 02/09/2015 [facility] Unilat Doppler US Clinical: Pain and swelling. Comparison: 01/29/2015 ultrasound. Findings: Atherosclerosis is again see n within the left common carotid artery compared to 01/29/2015 with small calcified plaques. Triphasic arterial flow is a gain seen within the left subclavian and axillary arteries. Biphasic arterial waveforms are seen within the left brachial, radial, and ulnar arteries. No occlusion is identified. There is significant superfi cial soft tissue edema within the dorsum of the left hand. IMPRESSION: 1. Stable dampened arterial waveforms in the left brachial, radial, and ulnar arteries indicating mild to moderate stenosis. No occlusion identified. 2. Significant soft tissue edema in the left aviles d dorsum. Chest 1view DX EXAM: Chest 1view 02/06/2015 [facility] ty HISTORY: PICC Line Placement COMPARISON: 02/04/2015. IMPRESSION: Right PICC termi nates over the SVC without pneumothorax. The left lung base is obscured, possibly related to overlying artifact and prominent soft tissues. The right lung is clear. Abdomen/Pelvis wo IV EXAM: CT ABDOMEN/PELVIS WITHOUT CONTRAST [facility] contrast CT DATE: Feb 04, 2015 09:14:27 PM . CLINICAL INDICATION: acute abdominal pain. TECHNIQUE: Volumetric acquis ition of abdomen from the level of the domes of the diaphragm to the symphysis pubis using 5mm collimation without the use of intravenous or oral contrast a. Axial and coronal images were reviewed. DLP - 1935 mGy-cm COMPARISON: Upper GI series of February 01, 2015 FINDINGS: Kidneys: No calcified stone disease or hydronephrosis. Nonspecific bilateral perinephric stranding. Urinary bladder: Unremarkable. Gastrointestinal tract: Mild , but not pathologically dilated colon. Postoperative changes from recent gastric bypass. Mildly dilated eleuterio limb persist. The duodenum is thickened. There is high-density free fluid in the pelvis. Liver: Low density throughout the left lobe of t he liver. >] Spleen: Unremarkable noncontrast evaluation. Pancreas: Atrophic Reproductive organs: Unremarkable. Vasculature: Unremarkable noncontrast evaluation Gallbladder/biliary tree: Cholecystectomy. No bi liary dilatation Mesentery: High density free fluid in the pelvis. Body wall edema. Subcutaneous and deep space gas in the left midabdomen related to recent surgery. Skeleton: Unremarkable. Pelvis: As above Lung bases: Left greater right pleural effusions with basal atelectasis. Heart: Unremarkable where visualized. IMPRESSION: 1. High density free fluid w ithin the dependent pelvis worrisome for extravasated oral contrast in the context of leak related to recent surgery. Hematoma is thought less likely. No organized fluid collection identified. 2. Low density throughout se gment 3 of the left liver, incompletely characterized without IV contrast. Infectious postoperative competition cannot be excluded. 3. Duodenal thickening. Stable mild prominence o f the eleuterio loop. 4. Body wall edema. Subcutaneous emphysema relat ed recent surgery Chest 1view DX Single view chest x-ray. DATE: Feb 04, 2015 06:49:55 AM 02/04/2015 [facility] INDICATION: Fever TECHNIQUE: Single frontal view of the chest was performed. COMPARISON: Chest x-ray 2014 FINDINGS: The lungs demonstr ate improved left pleural effusion with trace residual with minimal atelectasis. There is minimal increased right lower lobe focal opacity medially. The remainder of the lung s appear unremarkable. There is no evidence of p neumothorax. The cardiomediastinal silhou ette is stable. Stable right-sided central venous catheter. Osseous structures are unchanged. The visualized abdomen is unremarkable. IMPRESSION: Possible developing right lo wer lobe airspace disease. Improved left pleural effusion with residual trace effusion and left lower lobe atelectasis. Upper GI Series w OMNIPAQUE UPPER GI SERIES 02/01/2015 5 [facility] water soluble DX The fluoroscopy time is 12 seconds. The patient was placed in th e semirecumbent position. Small volume of Omnipaque was given orally. Upper abdominal surgical sta ples are present. Surgical drain is present in the left quadrant. Small volume of Omnipaque gi riana orally passed easily from the distal esophagus into the proximal small bowel via the gastrojejunostomy. No contrast extravasation is present. The Eleuterio limb is mildly dis tended. At 60 minutes, contrast is seen in the m id small bowel. Impression: 1. No contrast extravasation. 2. Mildly distended Eleuterio limb. Chest 1view DX Clinical History : See Clinic Indication , Abnormal chest sounds 02/01/2015 [facility] Exam : Portable AP view of the chest Feb 01 5 04:32:00 AM Comparisons : Portable AP view of the chest Augu 2014 Findings : There is a right PICC with its tip in the distal SVC. There is stable retrocardiac airspace disease wi th a small left effusion. The heart is normal in size. The mediastinal contours are normal in appearance. The thoracic spine is age appropriate. The shou lders are unremarkable. Limited evaluation of the upper abdomen demonstr ates no gross abnormalities. Impressions: 1. Retrocardiac airspace disease with small left effusion. 2. Stable right PICC tip in distal SVC. Chest 1view DX Clinical History : See Clinic Indication , Abnormal chest sounds 01/31/2015 [facility] Exam : Portable AP view of the chest Jan 31 5 03:01:00 AM Comparisons : Portable AP view of the chest Augu 2014 Findings : There is a right PICC with its tip in the distal SVC. There is stable retrocardiac airspace disease with a small left pleural effusion. The heart is normal in size. The mediastinal contours are normal in appearance. The thoracic spine is age appropriate. The shou lders are unremarkable. Limited evaluation of the upper abdomen demonstr ates no gross abnormalities. Impressions: 1. Stable retrocardiac airspace disease with sma ll left effusion. 2. Right PICC tip in distal SVC. Chest 1view DX Clinical History : See Clinic Indication , Abnormal chest sounds 01/30/2015 [facility] Exam : Portable AP view of the chest Jan 30 04:28:00 AM Comparisons : Portable AP view of the chest 2014 Findings : There is a right PICC with its tip in the mid-SV C. There is retrocardiac airspace disease with a sm all left pleural effusion. The rest of the lungs remain clear The heart is normal in size. The mediastinal contours are normal in appearance. The thoracic spine is age appropriate. The shou lders are unremarkable. Limited evaluation of the upper abdomen demonstr ates no gross abnormalities. Impressions: 1. Retrocardiac airspace disease with small left effusion. 2. Stable right PICC Abdomen complete w CLINICAL HISTORY: See Clinic Indication , Abdominal distension 01/29/2015 [facility] Abdominal Doppler US EXAM: Abdominal ultrasound Jan 29, 2015 11:05:00 PM Comparisons: none. TECHNIQUE: Utilizing a curve d array transducer, real-time ultrasound evaluation of the abdomen was performed. Color Doppler imaging was used to assess vascular flow. FINDINGS: Overall, the exam is limited by the patient's dwain dy habitus. The liver is enlarged measur ing 21.7 cm in craniocaudal dimension. There is increased echogenicity of the hepatic parenchyma. There are no infiltrating or discrete hepatic masses identified. There is normal hepatopedal flow in the main portal vein. The gallbladder is surgically absent. The common bile duct measures 5.1 mm in diameter . Limited images of the pancreas demonstrate no gr oss abnormalities. The aorta is incompletely ev aluated an otherwise grossly normal in course and caliber. The right kidney is normal i n size measuring 11.8 x 5.3 x 4.8 cm. The right renal cortex measures 1.4 cm in thickness. There are no shadowing right renal calculi or evidence of hydronephrosis. There are no infiltrating or discrete right renal masses. The left kidney is normal in size measuring 13.4 x 6.3 x 5.4 cm. The left renal cortex measures 1.8 cm in thickness. There are no shadowing left renal calculi or evidence of hydronephrosis. There are no infiltrating or discrete left renal masses. The spleen is normal in size measuring 13.6 x 6.0 x 4.6 cm. There are no infiltrating or discrete splenic masses. IMPRESSIONS: 1. Enlarged fatty liver. 2. Status post cholecystectomy. 3. Limited exam due to body habitus. Angiogram arm PROCEDURES PERFORMED 01/29/2015 [facility] VR 1. Left upper extremity art eriogram, most selective catheter position left brachial artery 2. Ultrasound guided access of right common fem oral artery HISTORY: Left hand ischemia , pain and swelling. No palpable radial pulse. Hand is dusky and cool. Recent arterial line, radial artery at wrist. CONSENT: Prior to the proce dure, the procedure, risks, benefits, and alternatives were discussed with the patient. Written, informed consent was obtained and documented in the patient's chart. SEDATION: Local anesthesia only. PROCEDURE: The patient was placed supin e on the angiography table and the right groin was prepped and draped in a standard sterile fashion. After administering local anesthesia, a micropuncture kit was utilized t o access the right common femoral artery under d irect ultrasound guidance. A 0.035 inch wire was advanc ed centrally and access was secured with a 5 Ukrainian vascular sheath. A 5 Ukrainian WILLIAM catheter was advanced over the wire. The wire and catheter were used to selectively cannulate the left subclavian artery. The catheter was advanced over the wire to the level of the left brachial artery at the level of the elbow. Selective arteriograms were performed of the lef t forearm, wrist and hand. The catheter was removed and the right groin access was closed with a [employer] device. FINDINGS: The visualized distal segmen t of the brachial artery is widely patent. Normal brachial trifurcation, distal to the elbow. The radial artery is occlude d approximately 4 cm proximal to the wrist. The interosseous artery is patent to the wrist. The ulnar artery is patent to the wrist. There is an approximately 5 cm segment of the distal ulnar artery with multifocal steno sis. The ulnar artery is patent t o the hand. The digital arteries of the 3rd, 4th, and 5th fingers are patent. The deep palmar arch is patent. The digital arteries of the 1st and 2nd digit are not visuali zed. Flow in the visualized arteries of the aviles d is very sluggish. IMPRESSION: 1. Acute occlusion of the le ft radial artery, approximately 4 cm proximal to the wrist. 2. Digital arteries of the 1st and 2nd digit are not visualized. 3. Only minimal antegrade fl ow is visualized in the opacified arteries of the hand. See additional findings above. Limited contrast used second livan to acute renal failure. Findings discussed with Dr. Jacobs. Chest 1view DX Single view chest x-ray. DATE: Jan 29, 2015 10:48:01 AM 01/29/2015 [facility] INDICATION: PICC Line Placement TECHNIQUE: Single frontal view of the chest was performed. COMPARISON: Chest x-ray 01/28/2015 FINDINGS: The lungs demonstr ate persistent left lower lobe consolidation and small left pleural effusion. Mild centrical may venous congestion. Interval placement of right-sided central venous catheter with tip overlying the cavoatrial junction. No e vidence of pneumothorax. The cardiomediastinal silhouette is stable. Osseous structures are unchanged. The visualized abdomen is unremarkable. IMPRESSION: Interval placement of right- sided central venous catheter with tip overlying the cavoatrial junction. No large discernible pneumothorax. Stable left lower lobe atele ctasis or airspace disease with small pleural effusion. Interval extubation. Ext Upper Arterial CLINICAL HISTORY : See Clini c Indication , Injury to blood Vessel (MUST SPECIFY) 01/29/2015 [facility] Unilat Doppler US EXAM : Left Upper Extremity arterial Duplex Jan 29, 2015 02:03:00 AM COMPARISON : Left upper extremity venous duplex TECHNIQUE : Utilizing a line ar array transducer, real-time ultrasound evaluation of the left upper extremity was performed. Color Doppler imaging was used to assess vascular flow. FINDINGS : The left subclavian artery d emonstrates normal triphasic waveform. Peak systolic velocity 84 cm/sec The left axillary artery dem onstrates normal triphasic waveform. The peak systolic velocity 169 cm/sec. The left brachial artery dem onstrates biphasic waveform. The peak systolic velocity 119 cm/sec. The left radial artery demon strates biphasic waveform. The peak systolic velocity a 63 cm/sec. The left ulnar artery demons trates monophasic waveform. The peak systolic velocity 55 cm/sec. IMPRESSIONS: 1. Up to 50% stenosis of the left axillary arter y by velocity criteria. 2. Dampened waveform pattern in the left brachia l, radial, ulnar arteries. Ext Upper Venous CLINICAL HISTORY : See Clini c Indication , Injury to blood Vessel (MUST SPECIFY) 01/29/2015 [facility] Doppler Unilat US EXAM : Left Upper Extremity Venous Duplex Jan 112014 02:02:00 AM COMPARISON : none TECHNIQUE : Utilizing a line ar array transducer, real-time ultrasound evaluation of the left upper extremity was performed. Color Doppler imaging was used to assess vascular flow. FINDINGS : The left internal jugular ve in demonstrates normal compressability with normal waveform. There is no echogenic thrombus. The left subclavian vein dem onstrates normal waveform. There is no echogenic thrombus. The left axillary vein demon strates normal compressibility with normal waveform. There is no echogenic thrombus. The left cephalic vein demon strates echogenic thrombus with limited compressibility and absent flow. The left basilic vein demons trates normal compressibility with normal waveform. There is no echogenic thrombus. The left brachial vein demon strates echogenic thrombus with limited compressibility and limited flow proximally. The left radial vein demonst rates normal compressibility with normal waveform. There is no echogenic thrombus. The left ulnar vein demonstr ates normal compressibility with normal waveform. There is no echogenic thrombus. IMPRESSIONS: 1. Occlusive thrombus throughout the left cephal ic vein. 2. Partially occlusive thrombus throughout the p roximal left brachial vein. Chest 1view DX Clinical History : See Clini c Indication , Tube placement/removal/reposition 01/28/2015 [facility] Exam : Portable AP view of the chest Jan 28 11:16:00 PM Comparisons : Portable AP view of the chest 2014 Findings : The endotracheal tube is in stable position with its tip 4 cm above the alyson. There has been interval near complete reexpansion of the patient's left lung with residual patchy retrocardiac atelectasis. The right lung remains largely clear. The heart is normal in size. The mediastinal contours are normal in appearance. The thoracic spine is age appropriate. The shou lders are unremarkable. Limited evaluation of the upper abdomen demonstr ates no gross abnormalities. Impressions: 1. Endotracheal tube tip in stable position 4 cm above alyson. 2. Interval near complete re expansion of the left lung with residual retrocardiac patchy atelectasis. Chest 1view DX Chest x-ray 1 view 01/28/2015 [facility] ity Comparison: Same day exam at 18:47 Findings: Heart size and michael tral vasculature are within normal limits. Again the endotracheal tube is 5 to 6 cm above the level the alyson at the level the thoracic inlet. Consider advancing. There has been improvement in left bas ilar atelectasis with residual subsegmental atelectasis. No acute osseus pathology. Impression: Improved left basal atelectasis. Consider advanc ing endotracheal tube 3 cm. Chest 1view DX Chest x-ray 1 view 01/28/2015 [facility] it Comparison: 01/14/2015 Findings: Heart size and michael tral vasculature are within normal limits. There has been interval placement of an endotracheal tube with the tip at the thoracic inlet \\R\\ 5 cm above the alyson. Consider ad vancing 3 cm. Retrocardiac o pacity with silhouetting of the left hemidiaphragm may represent atelectasis versus pneumonia. Mild to moderate diffuse degenerative changes. No acute osseus pathology. Impression: Endotracheal tube tip at the thoracic inlet- consider advancing 3 cm. Left lower lobe atelectasis versus pneumonia. Chest 2 views DX STUDY: Chest, 2 views. 01/14/2015 [facility] COMPARISON: None HISTORY: Coughing. FINDINGS: The lungs are clear. No den se focal consolidation is seen. No pleural effusion or pneumothorax is seen. The heart is normal in size. Mild degenerative changes of the spine are seen. IMPRESSION: No acute cardiopulmonary process. Consultation Notes No Data Provided for This Section Discharge Summaries No Data Provided for This Section History and Physicals No Data Provided for This Section Vital Signs Vital Sign Value Date Comments Source Height 175.26 cm 02/19/2020 [facility] Weight 95.909 02/19/2020 [facility] BMI Calculated 31.22 02/19/2020 [facility] Systolic (mm Hg) 178 05/16/2019 [facility] Diastolic (mm Hg) 68 05/16/2019 [facility] [place] [facility] Heart Rate 64 05/16/2019 [facility] Respitory Rate 16 05/16/2019 [facility] Height 170.18 cm 05/16/2019 [facility] Weight 93.636 05/16/2019 [facility] BMI Calculated 32.33 05/16/2019 [facility] Temperature Oral (F) 98.1 F 02/18/2019 [facility] Heart Rate 61 02/18/2019 [facility] Respitory Rate 18 02/18/2019 [facility] Systolic (mm Hg) 157 02/18/2019 [facility] Center Diastolic (mm Hg) 75 02/18/2019 [facility] Respitory Rate 20 02/18/2019 [facility] Systolic (mm Hg) 150 02/18/2019 [facility] dical Center Diastolic (mm Hg) 67 02/18/2019 [facility] Center Respitory Rate 20 02/18/2019 [facility] Systolic (mm Hg) 131 02/18/2019 [facility] dical Center Diastolic (mm Hg) 63 02/18/2019 [facility] [place] Temperature Oral (F) 97.4 F 02/18/2019 [facility] Heart Rate 64 02/18/2019 [facility] Temperature Oral (F) 97.8 F 02/18/2019 [facility] Heart Rate 73 02/18/2019 [facility] Height 175.26 cm 02/16/2019 [facility] Weight 104.545 02/16/2019 [facility] Weight 104.545 02/16/2019 [facility] Respitory Rate 16 03/06/2015 [facility] it Systolic (mm Hg) 132 03/06/2015 [facility] Diastolic (mm Hg) 66 03/06/2015 [facility] Heart Rate 66 03/06/2015 [facility] Cit y Temperature Oral (F) 98.2 F 03/06/2015 [facility] Temperature Oral (F) 98.1 F 03/06/2015 [facility] Respitory Rate 16 03/06/2015 [facility] ity Heart Rate 60 03/06/2015 [facility] Cit y Systolic (mm Hg) 151 03/06/2015 [facility] Diastolic (mm Hg) 71 03/06/2015 [facility] Heart Rate 62 03/06/2015 [facility] Cit y Temperature Oral (F) 98.1 F 03/06/2015 [facility] Systolic (mm Hg) 149 03/06/2015 [facility] Diastolic (mm Hg) 64 03/06/2015 [facility] Respitory Rate 16 03/06/2015 [facility] C ity BMI Calculated 47.23 03/04/2015 [facility] C ity Weight 140.909 03/04/2015 [facility] Height 172.72 cm 03/04/2015 [facility] Weight 30.909 03/03/2015 [facility] Height 91.44 cm 03/03/2015 [facility] BMI Calculated 36.97 03/03/2015 [facility] C ity Weight 160.455 03/02/2015 [facility] Cit y BMI Calculated 53.79 03/02/2015 [facility] C ity Height 172.72 cm 03/02/2015 [facility] Heart Rate 64 02/18/2015 [facility] Temperature Oral (F) 98.1 F 02/18/2015 [facility] Respitory Rate 18 02/18/2015 [facility] C ity Systolic (mm Hg) 125 02/18/2015 [facility] [place] Diastolic (mm Hg) 47 [facility] Resp[facility] Rate 18 02/18/2015 [facility]y Heart Rate 58 02/18/2015 [facility] Temperature Oral (F) 98.2 F 02/18/2015 [facility] Systolic (mm Hg) 128 02/18/2015 [facility] [place] Diastolic (mm Hg) 48 02/18/2015 [facility] Systolic (mm Hg) 142 02/18/2015 [facility] Diastolic (mm Hg) 60 02/18/2015 [facility] Respitory Rate 18 02/18/2015 [facility] C ity Heart Rate 70 02/18/2015 [facility] Cit y Temperature Oral (F) 98.0 F 02/18/2015 [facility] Weight 171.3 02/02/2015 [facility] Cit y Weight 170.1 01/30/2015 [facility] Cit y Weight 160.2 01/29/2015 [facility] Cit y Height 173.99 cm 01/29/2015 [facility] Cit y BMI Calculated 52.92 01/29/2015 [facility] C ity BMI Calculated 50.78 01/14/2015 [facility] C ity Height 173.99 cm 01/14/2015 [facility] Cit y Encounters Location Location Encounter Encounter Reason Attending ADM DC Stat us Source Details Type Number For Provider Date Date Visit [facility] [id number] Rainer 01/28 02/18 Bhupinder Deleon /2014 [facility] In[facility] [id number] [facility] [id number] Andrei 02/16 02/18 Meseret Claudioer /2018 [facility] Outpatient [id number] Dung 05/16 Active [facility] Bhupinder [facility] Outpatient [id number] Dung 05/16 05/17 [facility] [place] Outpatient [id number] Dung 07/03 Active [facility] Kre Bhupinder [facility] Ambulatory [id number] Dung 07/03 07/03 [facility] [place] [facility] Outpatient [id number] Ashley 02/19 02/20 [facility] Procedures Procedure Code Date Perfomer Comments Source Debridement of [id number] IRRIGATION AND Mische r muscle of 5 DEBRIDEMENT OF Neuro,[facility] hand<sup>1</sup> [place]OUNDS [place] ([facility] SUBCU/MUSCLE) Center,[facility] Irrigation of [id number] IRRIGATION AND Mischer wound<sup>2</sup> 5 DEBRIDEMENT OF Raghu ro,MH LEFT HAND WOUNDS [place] ([facility] SUBCU/MUSCLE) Center,[facility] Carpal tunnel [id number] Irrigation and Mischer release<sup>3</sup> 5 debridement of N euro,[facility] left hand wounds [place] and removal of Medical necrotic tissue [facility], [facility] release. [facility] Debridement of [id number] Irrigation and Mische r hand<sup>4</sup> 5 debridement of Neur o,MH left hand wounds [place] and removal of Medical necrotic tissue Center, with leslie Eddy tunnel release. [facility] Irrigation of [id number] Irrigation and Mischer wound<sup>5</sup> 5 debridement of Raghu ro,MH left hand wounds [place] and removal of Medical necrotic tissue Center, with leslie Eddy tunnel release. [facility] Removal of skin [id number] rrigation and Mische r necrosis or 5 debridement of Neuro,MH slough<sup>6</sup> left hand wounds [place] and removal of Medical necrotic tissue Center, with leslie Eddy tunnel release. [facility]iot[facility] [id number] [facility] Thrombectomy [id number] [facility] Diagnostic [id number] [facility] laparoscopy 5 [facility]astric bypass [id number] [facility] operation 5 [facility] Revision<sup>7</sup> [id number] LAPAROSCOPIC Mi lani 5 REVISION OF A VBG Neuro,M H TO GASTRIC BYPASS [facility] Blocked tear [id number] surgery [facility] duct<sup>8</sup> [facility] Cataract extraction [id number] [facility] [place] and insertion of [facility], intraocular lens [facility] Cholecystectomy [id number] [facility] Gastric stapling [id number] [facility] History of - tubal [id number] Mische r ligation [facility] Assessment and Plan Assessment and Plan Date Source Extracted from:Title: Louis B Discharge Summary 02/18/2019 [facility] Author: Calixto Garcia MD Date: 02/18/19 Admitting Physician: Andrei Kendall MD Date of Admission: Patient was admitted on 02/16/2019 Date of Discharge: 02/18/2019 17:10 Admission Diagnosis: Bariatric surgery status (Z98.84) Unspecified intestinal obstruction, unsp ecified as to partial versus complete obstruction (K56.609) Discharge Diagnosis: Unspecified abdominal pain (R10.9) Unspecified intestinal obstruction, unsp ecified as to partial versus complete obstruction (K56.609) Bariatric surgery status (Z98.84) Essential (primary) hypertension (I10) Type 2 diabetes mellitus without complications (E11.9) 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 Fallon is a 73F w/ PMH of T2DM, HTN, DVT on Xarelto, and PSH significant for Eleuterio-en-y 4 years ago who presents with a 4 day history of intolerance to PO. States that acutely on Monday she had a feeling of fullness in her stomach a f ew hours after eating dinner. She induced vomiting at that time with return of gastric contents. Since that time she has not been able to tolerate PO food or liqu ids and has had to induce vomiting after taking anything PO. She presented to an outside hospital on after these symptoms had not resolved. A CT scan was obtained at the OSH that was concerning for SBO and she was transferred to [facility] ED. States she had predominately liquid BM on and has been passing gas since her symptoms began. She currently is denying nausea, vomiting fever, chil ls, SOB, or chest pain. Of note, patient was diagnosed with a DVT 10 days ago and started on Xarelto which she last took the morning of 02/16. Patient made NPO, given Erik bag, NGT placed, Xarelto held, heparin gtt started. Plan for EGD Monday. Hospital Course: 02/17: No acute events overnight. Breathin g comfortably in room air, NG tube in place. Not passing gas or BM. Patient claims that NG tube liquid is "less dark and more like mucous than before". This morning BP increased up to 189 syst olic, Hospitalist team addressed the situation and ordered lisinopril. PTT increased over normal limits, protocol in place to adjust drip accordingly. Patient denies ABD pain, no SOB, no N/V. 02/18: Heparin gtt held at midnight for pr ocedure today. Patient denies any nausea, vomiting, belching, fever, chills, SOB, or chest pain. Patient states she isn't having any pain. Since last night s he has started passing a lot of gas, no BM. NGT output 300 cc. UOP 1200 cc. EGD demonstrated food bezoar which was removed. Patient was started on a bariatric diet which she tolerated without any nausea or vomiting. Discharge Instructions: Home Care Instructions Notify Physician if any of the Following Occur : Bleeding, Fever, Nausea, Pain, Shortness of breath, Signs of infection Discharge Diet Home Diet : Diet Bariatric Physician Follow-Up v2 Follow-Up With Provider : physician Provider #1 : Andrei Kendall MD Follow-Up Call : Call for appointment Follow-up with Provider within : 2 Weeks Reason : Post Op Visit Medications: Discharge Medications Zofran ODT 4 mg oral tablet, disintegrat in mg, 1 tab, PO, BID, for 5 day, Dissolve tab under tongue, PRN: Nausea and Vomiting, 10 tab, 0 Refill(s) Ordered by: Calixto Garcia MD - 02/18/2019 16: 24 citalopram (CeleXA 20 mg oral tablet): 2 0 mg = 1 tab, PO, Daily, 0 Refill(s) (Modified) Documented by: Gillian Lott RN - 02/17/2019 22:38 Home Medications (13) Active amLODIPine 5 mg oral tablet 10 mg = 2 tab, PO, Daily bisacodyl 10 mg rectal suppository 10 mg = 1 supp, PRN, PA, Daily calcium-vitamin D 500 mg-125 units oral tablet 1 tab, PO, TI D CeleXA 20 mg oral tablet 20 mg = 1 tab, PO, Daily Colace 100 mg oral capsule 100 mg = 1 cap, PO, BID diphenhydrAMINE 50 mg/mL injectable solution 25 mg = 0.5 mL, PRN, IVP, Q6H hydrochlorothiazide 25 mg oral tablet 50 mg = 2 tab, PO, Haydee ly metoprolol 50 mg oral tablet, extended release 50 mg = 1 tab , PO, Daily multivitamin with iron 1 cap, PO, Daily nystatin-triamcinolone topical cream 1 appl, TOP, TID traMADol 100 mg/24 hours oral capsule, extended release , PO , [id number] Vitamin D3 5000 intl units oral capsule , PO, Daily Zofran ODT 4 mg oral tablet, disintegrating 4 mg = 1 tab, PA N, PO, BID Extracted from:Title: Surgery Update Author: Juan José Ferguson MD Date: 02/18/19 EGD completed for evaluation of dysphagi a. Food bezoar present which was successfully removed with net. Patient will be given diet and likely able to be discharged this PM. Juan José Ferguson MD General Surgery PGY4 Extracted from:Title: Infection Control Isolation Alert Author: Suzette Cindy Date: 02/17/19 ISOLATION ALERT This patient has a history of infection/colonization with Organism/Condition Site Date MDR Klebsiella - PDR MDR Enterobacter - ESBL Abd Fluid Abd Fluid 03/03/2015 03/03/2015 Isolation Required: CONTACT Before isolation precautions may be disc ontinued, the following protocol must be followed and Infection Control should be notified. IT IS NOT NECESSARY TO CULTURE STERILE S ITES (BLOOD, CSF, HEALED WOUNDS) WHEN TRYING TO DISCONTINUE ISOLATION. Organism/Condition Status Cultures/Test Sites Multi-drug Resistant Gram Negative Bacteria (Defined as resistant to at least 1 drug in 3 of the 5 drug classes below) a. Cefepime or ceftazidime b. Pip/tazo or ticar/clav c. Gentamicin, amikacin or tobramycin d. Meropenem e. Ciprofloxacin or moxifloxacin Off abx x 72hrs or 7 days if on dialysis and aminoglycoside x2, 48 hrs apart Any previous positive non-sterile site (e.g. urine, stool, t hroat) MRSA Off abx x 72hrs or 7 days if on dialysis and vancomycin MRSA PCR Nares specimen VRE Isolation precautions should not be discontinued Influenza Human (seasonal influenza) Maintain precautions for 7 days after il lness onset or until 24 hours after resolution of fever and respiratory symptoms. Maintain precautions for longer periods in immunocompromised persons based on clinical judgment. TB: Pulmonary or Laryngeal Contact Infection Control at [phone] (on-call line) or [phone] (on- call pager ) If the patient is high risk or if there is still a strong clinical suspicion of pulmonary TB after one negative PCR due to epidemiological risk factors and clinical symptoms, another respiratory MTB PCR sample can be sent. Mycobacterium tuberculosis (MTB) PCR w/ Isolation MPP Sputum and/or BAL PCN-R or PCN-Intermediate Streptococcus pneumoniae 48 hrs of effective antibiotic and resol ution of clinical S/S of pulmonary involvement Stenotrophomonas R to Trimethoprim-Sulfa Methoxazole (T/S) Off abx x 72hrs or 7 days if on dialysis and aminoglycoside x2, 48h apart Any previous positive non-sterile site (e.g. urine, stool, throat) Chryseobacterium meningosepticum (former ly Flavobacterium meningosepticum) and other Chryseobacterium spp. R to minocycline, rifampin, or vancomycin Off abx x 72hrs or 7 days if on dialysis and vancomycin x2, 48h apart Any previous positive non-sterile site (e.g. urine, stool, t hroat) Gram negative enterics: Salmonella, Shigella, etc. Off abx x 48 hrs x2, 48h apart Stool Varicella Zoster Maintain precautions until all lesions a re dry and crusted. Place susceptible patients on precautions beginning day 8 after exposure to day 21 after last exposure or day 28 for patients who have received VZIG. Measles (rubeola) Maintain precautions for 4 days after on set of rash except duration of illness (with wound lesions, until wounds stop draining) in immunocompromised persons. Consult Infection Disease Physician for suggested regimens for decolonization of patients with MRSA as well as for any questions. Please contact the Infection Control [facility] at [phone] with any questions regarding isolation. Extracted from:Title: [facility] Prado History and Physical Author: Calixto Garcia MD Date: 02/16/19 [facility]ado H&P Admitting Surgeon: Dr. Elton MD Date of Admission: Patient was admitted on 02/16/2019 Admission Diagnosis: Bariatric surgery status (Z98.84) Unspecified intestinal obstruction, unsp ecified as to partial versus complete obstruction (K56.609) Chief Complaint: Unable to tolerate PO History of present Illness: Mrs. Fallon is a 73F w/ PMH of T2DM, HTN, DVT on Xarelto, and PSH significant for Eleuterio-en-y 4 years ago who presents with a 4 day history of intolerance to PO. States that acutely on Monday she had a feeling of fullness in her stomach a f ew hours after eating dinner. She induced vomiting at that time with return of gastric contents. Since that time she has not been able to tolerate PO food or liqu ids and has had to induce vomiting after taking anything PO. She presented to an outside hospital on after these symptoms had not resolved. A CT scan was obtained at the OSH that was concerning for SBO and she was transferred to [facility] ED. States she had predominately liquid BM on and has been passing gas since her symptoms began. She currently is denying nausea, vomiting fever, chil ls, SOB, or chest pain. Of note, patient was diagnosed with a DVT 10 days ago and started on Xarelto which she last took the morning of 02/16. Past Medical History: T2DM HTN DVT Past Surgical History: Eleuterio-en-Y Tubal Ligation Laparoscopic Cholecystectomy Allergies: Bacitracin, Topical Medications: Medications (18) Active Scheduled Meds (5): 02/16/19 furosemide (Lasix) 20 mg IVP Daily 02/16/19 lisinopril 20 mg PO Daily 02/16/19 metoprolol (metoprolol extended release) 50 mg PO D aily 02/16/19 pantoprazole (Protonix) 40 mg IVP BID 02/16/19 sucralfate 1 gm PO BID Unscheduled Meds: None PRN Meds (8): 02/16/19 Dextrose 50% in Water IV (Dextrose 50% Syringe) 12. 5 gm IVP PRN 02/16/19 Dextrose 50% in Water IV (Dextrose 50% Syringe) 25 gm IVP PRN 02/16/19 cloNIDine 0.1 mg PO Q8H 02/16/19 glucagon 1 mg IM PRN 02/16/19 heparin (Heparin 80 unit/kg Miguel us (Heparin Dosing Weight)) 6,400 unit IVP PRN 02/16/19 heparin (Heparin 40 unit/kg Miguel us (Heparin Dosing Weight)) 3,200 unit IVP PRN 02/16/19 ondansetron 4 mg IVP Q8H 02/16/19 phenol topical (Chloraseptic 1.4% spray) 1 spray TO P Daily One Time Meds (3): 02/16/19 (not done) cloNIDine (cloNIDine 0.1 mg oral tablet ) 0.1 mg PO ONCE 02/16/19 (not done) hydrochlorothiazide 25 mg PO ONCE 02/16/19 (Completed) morphine Sulfate 2 mg IVP ONCE Continuous Infusions (2): 02/16/19 Sodium Chloride 0.9% IV 984.8 m L + multivitamin 10 mL Daily + folic acid 1 mg Daily + thiamine 500 (Sodium Chloride 0.9% IV 984.8 mL + M.V.I.-12 10 mL Daily + folic acid IV 1 mg Daily + thiamine IV 5) 984.8 mL 100 ml/hr 02/16/19 heparin 25,000 unit [18 unit/kg /hr] + Premix Diluent Sodium Chloride 0.45% 500 mL (heparin additive 25,000 unit [18 unit/kg/hr] + Premix Diluent Sodium Chloride 0.45% 500 mL) 500 mL 28.86 ml/hr Family History: Mother: Diabetes mellitus - adult onset; High blood pressure Sister: Breast cancer Social History: Alcohol Details: Current Tobacco Details: Use: Former smoker. Type: Ciga rettes. Tobacco smoke exposure: None. Did the Patient Smoke Cigarettes Anytime During the Last 365 Days? No. Cessation Counseling Provided? Yes. ROS: ROS negative unless stated in HPI. Physical Exam Vitals Tmp(F) Pulse BP RR SpO2 FIO2 02/16 06:24 ---- 67 161/72 -- 100 --- 02/16 04:30 ---- 64 147/68 -- 98 --- 02/16 03:46 98.8 69 140/69 18 100 --- 24 Hr Tmax: 98.8F (37.11c) at 02/16 03:4 6 Vital Signs are the last 5 in the past 48 hours. General: Alert and following commands. HEENT: Normocephalic, Atraumatic, Extrao cular movements are intact, Normal conjunctiva. Respiratory: Lungs are clear to ausculta tion, Respirations are non-labored, Breath sounds are equal. Cardiovascular: Regular rate, regular rh ythm, No murmur, Good pulses equal in all extremities. Gastrointestinal: Soft, Non-tender, Non- distended, Normal bowel sounds. No guarding or rebound tenderness. Skin: Warm, Dry, Intact. Bruising noted on bilateral upper e xtremities. Neurologic: Alert, No focal deficits, mo ves all extremities equally to command, follows multistep commands. Psychiatric: Cooperative, Appropriate mood and affect. Pertinent Labs/Imaging [facility] A/G Ratio: 0.9 (02/16/19) ABO/Rh: A POS (02/16/19) AGAP: 16 mEq/L (02/16/19) Albumin Lvl: 2.9 g/dL Low (02/16/19) Alk Phos: 41 unit/L (02/16/19) ALT: 11 unit/L (02/16/19) Antibody Scrn: Negative (02/16/19) AST: 13 unit/L (02/16/19) Basophils: 0.6 % (02/16/19) Basophils #: 0.1 K/CMM (02/16/19) BE Riana: -2 mMol/L (02/16/19) Bili Direct: 0.1 mg/dL (02/16/19) Bili Indirect: 0.6 mg/dL (02/16/19) Bili Total: 0.7 mg/dL (02/16/19) BUN: 28 mg/dL High (02/16/19) Calcium Lvl: 8.5 mg/dL (02/16/19) Chloride Lvl: 102 mEq/L (02/16/19) CO2: 26 mEq/L (02/16/19) Creatinine Lvl: 1.31 mg/dL (02/16/19) eGFR: 41 mL/min/1.73m2 (02/16/19) Eosinophils: 0.2 % (02/16/19) Globulin: 3.1 g/dL (02/16/19) Glucose Lvl: 116 mg/dL High (02/16/19) HCO3 Riana: 24 mMol/L (02/16/19) Hct: 35.6 % Low (02/16/19) Hgb: 11.9 g/dL Low (02/16/19) INR: 1.66 High (02/16/19) Lactic Acid WB: 1 mmol/L (02/16/19) Lipase Lvl: 68 unit/L Low (02/16/19) Lymphocytes: 7.9 % Low (02/16/19) Lymphocytes #: 1.1 K/CMM (02/16/19) MCH: 32.9 pg High (02/16/19) MCHC: 33.4 g/dL (02/16/19) MCV: 98.4 fL High (02/16/19) Monocytes: 8.4 % (02/16/19) Monocytes #: 1.1 K/CMM High (02/16/19) MPV: 8.9 fL (02/16/19) Neutrophils #: 11.3 K/CMM High (02/16/19) O2 Sat Riana: 48 % (02/16/19) pCO2 Riana: 45 mmHg (02/16/19) pH Riana: 7.34 (02/16/19) Platelet: 215 K/CMM (02/16/19) pO2 Riana: 28 mmHg (02/16/19) Potassium Lvl: 5 mEq/L (02/16/19) PT: 19.3 seconds High (02/16/19) RBC: 3.62 M/CMM Low (02/16/19) RDW: 14.9 % High (02/16/19) Segs: 82.9 % High (02/16/19) Sodium Lvl: 139 mEq/L (02/16/19) Temp Riana: 37 DegC (02/16/19) Total Protein: 6 g/dL Low (02/16/19) WBC: 13.7 K/CMM High (02/16/19) Imaging Studies (last 36 hours) (none) Assessment: Mrs. Fallon is a 73F w/ PMH of T2DM, HTN, DVT on Xarelto, and PSH significant for Eleuterio-en-y 4 years ago who presents with a 4 day history of intolerance to PO and imaging concerning for narrowing at her G-J anastomosis. Plan: - Admit to [facility] - NPO - Bariatric bag - NGT placed at bedside, LIWS when cleared - Hold Xarelto, started on Hep gtt - Restart other home medications - Plan for EGD on Monday Calixto Garcia MD PGY1 General Surgery Extracted from:Title: Progress Note * 02/18/2015 [facility] Author: Angel Toribio MD Date: 02/18/15 Impression and Plan -- Polymicrobial abdominal abscess with EC fistula: s/p ex lap and revision of gastroplasty to eleuterio-en-Y bypass. Diet and routine post op care and abx per Surg. To [facility] today. -- L radial artery thrombus with ischemi c L hand: s/p thrombectomy, fasciotomy, I&D. Continue routine post-op care. -- Acute post-op blood loss anemia: stable, continue to anjelica tor. -- DM II, lable, no known complications: at home, she is on a total of 108 units daily lantus, but her requirements here . are decreased while on Will decrease PM levemir to 15 units to decrease risk of AM hypoglycemia. -- HTN, beingn,essential: remains accept able on current medical regimen, no changes today. Dispo to [facility] today. Plan of Care No Data Provided for This Section Social History Social History Date Source Social History TypeResponse 03/03/2015 [facility] Current Employment/School 1, 2 Smoking Status Former smoker; Type: Cigarettes; Exposur e to Tobacco Smoke None; Cigarette Smoking Last 365 Days No; Reg Smoking Cessation Counseling Yes entered on: 05/16/19 1POA- Son Maureen Adames2May rel ease medical information to- Yan Fallon and Son- Britt Adames Social History TypeResponse 03/03/2015 [facility] Alcohol Current Smoking Status Former smoker; Type: Cigarettes; Exposur e to Tobacco Smoke None; Cigarette Smoking Last 365 Days No; Reg Smoking Cessation Counseling Yes Social History TypeResponse 03/03/2015 [facility] Alcohol Current Smoking Status Former smoker; Type: Cigarettes; Exposur e to Tobacco Smoke None; Cigarette Smoking Last 365 Days No; Reg Smoking Cessation Counseling Yes entered on: 02/16/19 Social History TypeResponse 03/03/2015 [facility] Alcohol Current Employment/School 1, 2 Smoking Status Former smoker; Type: Cigarettes; Exposur e to Tobacco Smoke None; Cigarette Smoking Last 365 Days No; Reg Smoking Cessation Counseling Yes entered on: 02/19/20 1POA- Son Maureen Adames2May rel ease medical information to- Yan Fallon and Son- Britt Adames Family History No Data Provided for This Section Advance Directives No Data Provided for This Section Functional Status No Data Provided for This Section
--- NOTE | 2020-06-29 19:52 | ER ---
Nurse's Notes [facility] Name: Lynette Fallon Age: 74 yrs Sex: Female : 1945 Arrival Date: 06/29/2020 Time: 17:58 Bed 23 Private MD: Diagnosis: Urinary tract infection, site not specified-failed outpatient;Acute kidney failure Presentation: 06/29 18:11 Chief complaint: Patient states: I have a UTI and my doctor said I need to be admitted ca1 to start on IV antibiotics. UTI symptoms started 3 weeks ago, and had completed oral abx but did not work. Coronavirus screen: Client denies travel out of the [place] in the last 14 days. At this time, the client does not indicate any symptoms associated with coronavirus-19. Ebola Screen: Patient negative for fever greater than or equal to 101.5 degrees Fahrenheit, and additional compatible Ebola Virus Disease symptoms Patient denies exposure to infectious person. Patient denies travel to an Ebola-affected area in the 21 days before illness onset. No symptoms or risks identified at this time. Initial Sepsis Screen: Does the patient meet any 2 criteria? No. Patient's initial sepsis screen is negative. Does the patient have a suspected source of infection? No. Patient's initial sepsis screen is negative. Risk Assessment: Do you want to hurt yourself or someone else? Patient reports no desire to harm self or others. Onset of symptoms was June 29, 2020. 18:11 Method Of Arrival: Wheelchair ca1 18:11 Acuity: EDEN 3 ca1 Historical: - Allergies: 18:15 No Known Allergies; ca1 - PMHx: 18:15 Diabetes - NIDDM; Hypertension; Leukemia; ca1 - PSHx: 18:15 Cholecystectomy; Tubal ligation; cataracts; ca1 - Immunization history:: Pneumococcal vaccine is up to date, Flu vaccine is not up to date. - Social history:: Smoking status: Patient denies any tobacco usage or history of. Screenin:21 Abuse screen: Denies threats or abuse. Denies injuries from another. Nutritional zb screening: No deficits noted. Tuberculosis screening: No symptoms or risk factors identified. Fall Risk No fall in past 12 months (0 pts). No secondary diagnosis (0 pts). IV access (20 points). Ambulatory Aid- Crutches/Cane/Walker (15 pts). Gait- Impaired (20 pts.). Mental Status- Oriented to own ability (0 pts). Total Acevedo Fall Scale indicates High Risk Score (45 or more points). Fall prevention measures have been instituted. Side Rails Up X 2 Placed Close to Nursing Station Frequent Obs/Assessments Occuring. Assessment: 19:30 General: Appears in no apparent distress. comfortable, Behavior is calm, cooperative, zb appropriate for age. Pain: Denies pain. Neuro: Level of Consciousness is awake, alert, obeys commands, Oriented to person, place, time, situation. Cardiovascular: Heart tones S1 S2 present Murmur present Patient's skin is warm and dry. Edema is 2+ to left midcalf, left ankle, left foot, left toes, right midcalf, right ankle, right foot and right toes. Respiratory: Airway is patent Respiratory effort is even, unlabored, Respiratory pattern is regular, symmetrical. GI: Abdomen is round non-distended, obese. : No signs and/or symptoms were reported regarding the genitourinary system. EENT: No signs and/or symptoms were reported regarding the EENT system. Derm: Skin is intact, is fragile, is thin, Skin is Skin is normal. Musculoskeletal: Circulation, motion, and sensation intact. Capillary refill < 3 seconds, in bilateral fingers. Range of motion: intact in all extremities. 20:30 Reassessment: Patient appears in no apparent distress at this time. Patient and/or zb family updated on plan of care and expected duration. Pain level reassessed. Patient is alert, oriented x 3, equal unlabored respirations, skin warm/dry/pink. 21:30 Reassessment: Patient appears in no apparent distress at this time. Patient and/or zb family updated on plan of care and expected duration. Pain level reassessed. Patient is alert, oriented x 3, equal unlabored respirations, skin warm/dry/pink. lights dimmed pt appears to be asleep. 22:30 Reassessment: Patient appears in no apparent distress at this time. Patient and/or zb family updated on plan of care and expected duration. Pain level reassessed. Patient is alert, oriented x 3, equal unlabored respirations, skin warm/dry/pink. light dimmed pt appears to be sleeping. 23:30 Reassessment: Patient appears in no apparent distress at this time. Patient and/or zb family updated on plan of care and expected duration. Pain level reassessed. Patient is alert, oriented x 3, equal unlabored respirations, skin warm/dry/pink. 23:33 Reassessment: patient currently taking home CHEMO medications. zb Vital Signs: 18:11 BP 122 / 64; Pulse 65; Resp 18 S; Temp 97.1(TE); Pulse Ox 100% on R/A; Weight 99.34 kg ca1 (R); Height 5 ft. 9 in. (175.26 cm) (R); Pain 0/10; 19:30 BP 145 / 55; Pulse 67; Resp 16; Pulse Ox 100% on R/A; zb 20:30 BP 147 / 58; Pulse 67; Resp 15; Pulse Ox 100% on R/A; zb 21:30 BP 143 / 60; Pulse 67; Resp 15; Pulse Ox 100% on R/A; zb 22:30 BP 140 / 60; Pulse 70; Resp 16; Pulse Ox 98% on R/A; zb 23:24 BP 121 / 52; Pulse 67; Resp 16; Pulse Ox 100% on R/A; zb 18:11 Body Mass Index 32.34 (99.34 kg, 175.26 cm) ca1 ED Course: 17:58 Patient arrived in ED. ag5 18:14 Triage completed. ca1 18:15 Arm band placed on right wrist. ca1 18:41 Kristen Bello RN is Primary Nurse. zb 18:42 Charo Price FNP-C [facility]. kb 18:42 Alejo Crisostomo MD is Attending Physician. kb 19:52 Mega Bailey MD is Hospitalizing Provider. kb 20:00 Inserted saline lock: 22 gauge in right wrist, using aseptic technique. Blood zb collected. Missed attempt(s): 22 gauge in right antecubital area. 23:33 Patient has correct armband on for positive identification. Pulse ox on. NIBP on. Door zb closed. Noise minimized. Warm blanket given. 06/30 00:10 No provider procedures requiring assistance completed. Patient admitted, IV remains in zb place. Administered Medications: 06/29 20:28 Drug: Meropenem 1 grams Route: IV; Rate: calculated rate; Site: right forearm; zb 20:39 Follow up: Response: No adverse reaction; IV Status: Completed infusion; IV Intake: zb 100ml Intake: 20:39 IV: 100ml; Total: 100ml. zb Outcome: 19:52 Decision to Hospitalize by Provider. bharati 06/30 00:10 Admitted to Med/surg accompanied by tech, room 211, with chart, Report called to chuy Otoole RN Condition: stable Instructed on the need for admit, Demonstrated understanding of instructions. 00:11 Patient left the ED. zb Signatures: Charo Price, JUKEBOX [employer]IN COLLECTOR-C JUKEBOX COIN COLLECTOR-CkLashonda Figueroa RN RN ca1 Rob Flannery ag5 Kristen Bello RN RN chuy Corrections: (The following items were deleted from the chart) 06/29 23:22 21:00 Inserted saline lock: 22 gauge in right wrist, using aseptic technique. Blood zb collected. zb 23:22 21:00 Missed attempt(s): 22 gauge in right antecubital area. zb zb
--- NOTE | 2020-06-29 19:52 | EDPHYS ---
Physician Documentation [facility] Name: Lynette Fallon Age: 74 yrs Sex: Female : 1945 Arrival Date: 06/29/2020 Time: 17:58 Bed 23 Private MD: RICH Physician Alejo Crisostomo HPI: 06/29 19:46 This 74 yrs old Unknown Female presents to ER via Wheelchair with complaints of Sent By bharati Vicente, UTI. 19:46 "I'm going to be admitted for 7 days for IV antibiotics.". Onset: The symptoms/episode kb began/occurred 2 week(s) ago. Severity of symptoms: At their worst the symptoms were moderate in the emergency department the symptoms are unchanged. The patient has not experienced similar symptoms in the past. The patient has been recently seen by a physician:. Pt reports she has had a UTI for a while. Has been through 2 courses of antibiotics with no relief. Was seen by Dr Vicente today and sent here for admission for IV antibiotics because the urine culture showed that is what she needed.. Historical: - Allergies: 18:15 No Known Allergies; ca1 - PMHx: 18:15 Diabetes - NIDDM; Hypertension; Leukemia; ca1 - PSHx: 18:15 Cholecystectomy; Tubal ligation; cataracts; ca1 - Immunization history:: Pneumococcal vaccine is up to date, Flu vaccine is not up to date. - Social history:: Smoking status: Patient denies any tobacco usage or history of. ROS: 19:45 Constitutional: Negative for fever, chills, and weight loss, Cardiovascular: Negative kb for chest pain, palpitations, and edema, Respiratory: Negative for shortness of breath, cough, wheezing, and pleuritic chest pain, Abdomen/GI: Negative for abdominal pain, nausea, vomiting, diarrhea, and constipation, MS/Extremity: Negative for injury and deformity, Skin: Negative for injury, rash, and discoloration, Neuro: Negative for headache, weakness, numbness, tingling, and seizure. Exam: 19:46 Constitutional: This is a well developed, well nourished patient who is awake, alert, kb and in no acute distress. Head/Face: Normocephalic, atraumatic. Chest/axilla: Normal chest wall appearance and motion. Nontender with no deformity. No lesions are appreciated. Cardiovascular: Regular rate and rhythm with a normal S1 and S2. No gallops, murmurs, or rubs. Normal PMI, no JVD. No pulse deficits. Respiratory: Lungs have equal breath sounds bilaterally, clear to auscultation and percussion. No rales, rhonchi or wheezes noted. No increased work of breathing, no retractions or nasal flaring. Abdomen/GI: Soft, non-tender, with normal bowel sounds. No distension or tympany. No guarding or rebound. No evidence of tenderness throughout. Skin: Warm, dry with normal turgor. Normal color with no rashes, no lesions, and no evidence of cellulitis. MS/ Extremity: Pulses equal, no cyanosis. Neurovascular intact. Full, normal range of motion. Neuro: Awake and alert, GCS 15, oriented to person, place, time, and situation. Cranial nerves II-XII grossly intact. Motor strength 5/5 in all extremities. Sensory grossly intact. Cerebellar exam normal. Normal gait. Vital Signs: 18:11 BP 122 / 64; Pulse 65; Resp 18 S; Temp 97.1(TE); Pulse Ox 100% on R/A; Weight 99.34 kg ca1 (R); Height 5 ft. 9 in. (175.26 cm) (R); Pain 0/10; 19:30 BP 145 / 55; Pulse 67; Resp 16; Pulse Ox 100% on R/A; zb 20:30 BP 147 / 58; Pulse 67; Resp 15; Pulse Ox 100% on R/A; zb 21:30 BP 143 / 60; Pulse 67; Resp 15; Pulse Ox 100% on R/A; zb 22:30 BP 140 / 60; Pulse 70; Resp 16; Pulse Ox 98% on R/A; zb 23:24 BP 121 / 52; Pulse 67; Resp 16; Pulse Ox 100% on R/A; zb 18:11 Body Mass Index 32.34 (99.34 kg, 175.26 cm) ca1 MDM: 18:42 Patient medically screened. kb 19:42 Data reviewed: vital signs, nurses notes. Data interpreted: Pulse oximetry: on room air kb is 100 %. Interpretation: normal. Counseling: I had a detailed discussion with the patient and/or guardian regarding: the historical points, exam findings, and any diagnostic results supporting the discharge/admit diagnosis, lab results, the need for further work-up and treatment in the hospital. Physician consultation: Moisés BELL was contacted at 19:45, regarding admission, to the medical/surgical unit. patient's condition, in the emergency department to see patient at 19:45. 06/29 18:48 Order name: CBC with Diff; Complete Time: 20:27 kb 06/29 18:48 Order name: Basic Metabolic Panel; Complete Time: 21:05 kb 06/29 18:48 Order name: Blood Culture Adult (2) kb 06/29 18:48 Order name: Lactate; Complete Time: 20:48 kb 06/29 18:48 Order name: Procalcitonin; Complete Time: 21:05 kb 06/29 18:48 Order name: Urine Culture kb 06/29 18:48 Order name: IV Start; Complete Time: 20:14 kb 06/29 18:48 Order name: Urine Microscopic Only; Complete Time: 21:36 kb 06/29 18:48 Order name: Urine Dipstick-Ancillary (obtain specimen); Complete Time: 20:23 kb 06/29 20:04 Order name: COVID-19 kb 06/29 20:04 Order name: CORONAVIRUS EDMS 06/29 20:39 Order name: Urine Dipstick--Ancillary (enter results); Complete Time: 20:48 tt3 06/29 22:43 Order name: SARS-COV-2 RT PCR EDMS Administered Medications: 20:28 Drug: Meropenem 1 grams Route: IV; Rate: calculated rate; Site: right forearm; zb 20:39 Follow up: Response: No adverse reaction; IV Status: Completed infusion; IV Intake: zb 100ml Disposition: 06/30 06:36 Co-signature as Attending Physician, Alejo Crisostomo MD I agree with the assessment and sujey plan of care. Disposition: 06/29/20 19:52 Hospitalization ordered by Mega Bailey for Inpatient Admission. Preliminary diagnosis are Urinary tract infection, site not specified - failed outpatient, Acute kidney failure. - Bed requested for Telemetry/MedSurg (Inpatient). - Status is Inpatient Admission. zb - Condition is Stable. - Problem is new. - Symptoms are unchanged. Signatures: Dispatcher [employer] EDMS Charo Price FNP-C FNP-Ckb Christine Conley RN RN mw Anderson, Corey, MD MD cha Attema, Lee, ANCILLARY SERVICES MANAGER-C ANCILLARY SERVICES MANAGER-Cla1 Lashonda Castaneda RN Kristen Rico RN RN zb Corrections: (The following items were deleted from the chart) 06/29 20:27 19:52 Hospitalization Ordered by Mega Bailey MD for Observation. Preliminary kb diagnosis is Urinary tract infection, site not specified - failed outpatient. Bed requested for Telemetry/MedSurg (observation). Status is Observation. Condition is Stable. Problem is new. Symptoms are unchanged. kb :31 20:27 06/29/2020 19:52 Hospitalization Ordered by Mega Bailey MD for Inpatient mw Admission. Preliminary diagnosis is Urinary tract infection, site not specified - failed outpatient; Acute kidney failure. Bed requested for Telemetry/MedSurg (Inpatient). Status is Inpatient Admission. Condition is Stable. Problem is new. Symptoms are unchanged. kb 06/30 00:11 06/29 22:31 06/29/2020 19:52 Hospitalization Ordered by Mega Bailey MD for Inpatient zb Admission. Preliminary diagnosis is Urinary tract infection, site not specified - failed outpatient; Acute kidney failure. Bed requested for Telemetry/MedSurg (Inpatient). Status is Inpatient Admission. Condition is Stable. Problem is new. Symptoms are unchanged. mw
[2020-06-29 20:18] LABS: Absolute Lymphocytes (CBC) 1.2 K/uL (0.7-4.9); Basophils % 0.9 % (0-1.3); Hematocrit 31.3 % (36.0-45.0); Lymphocytes % 25.6 % (15.3-44.8); MPV 9.5 fL (7.6-11.3); RBC Red Blood Cell Count 3.22 M/uL (3.86-4.86)
[2020-06-29] MEDS ORDERED: Meropenem 1 GM/100 ML BAG ONE (20:31)
[2020-06-29 20:47] LABS: Urine Blood 1+ (NEG); Urine Glucose NEGATIVE (NEG); Urine Protein 1+ (NEG); Urine Specific Gravity 1.025 (1.005-1.030); Urine pH 5.5 (5.0-7.0)
--- NOTE | 2020-06-29 20:48 | P.HP ---
Certification for Inpatient Patient admitted to: Inpatient With expected LOS: >2 Midnights <Moisés Cruz - Last Filed: 06/29/20 20:44> Patient History Date of Service: 06/29/20 Primary Care Provider: Dr. Jimenez Reason for admission: UTI, failed outpatient therapy History of Present Illness: 74-year-old female with history of diabetes mellitus type 2, hypertension, CLL presents emergency department for resistant urinary tract infection. Patient reports that she has been on 2 courses of antibiotics including Cipro and amoxicillin which were not be effective, her auditor internal Dr. Vicente center to the emergency department instructing that she had to stay in the hospital. Patient brought with her some doses of tobramycin in a bag and IV formulation, she reports that she had home health arranged in that they were supposed to start giving her the tobramycin but were unable to achieve IV access after 6 attempts. Patient also with some renal insufficiency. Patient was evaluated in the emergency department with labs significant for elevated creatinine 2.38 GFR 20 this is an increase from 1.65 on 06/03/2020 and GFR was 30 on 06/03/2020. Culture and sensitivity unavailable for review at this time as it was performed at [facility]. When ED physician spoke with nephrology it was reported that they were unsure if this was ESBL. White blood cell count within normal limits hemoglobin 10.6 hematocrit 31.3 MCV 97.3. - Past Medical/Surgical History Diabetic: Yes -: Diabetes mellitus type 2 -: Hypertension -: CLL -: Cholecystectomy -: Tubal ligation Psychosocial/ Personal History: Patient lives at home with her and son - Family History Family History: Reviewed- Non-Contributory - Social History Smoking Status: Former smoker Alcohol use: No CD- Drugs: No Caffeine use: Yes Place of Residence: Home <Moisés Cruz - Last Filed: 06/29/20 20:44> Date of Service: 07/05/20 <Mega Bailey - Last Filed: 07/05/20 20:24> Review of Systems 10-point ROS is otherwise unremarkable Genitourinary: Dysuria, Urgency <Moisés Cruz - Last Filed: 06/29/20 20:44> Physical Examination - Physical Exam General: Alert, In no apparent distress HEENT: Atraumatic, PERRLA, Mucous membr. moist/pink Neck: Supple Respiratory: Clear to auscultation bilaterally, Normal air movement Cardiovascular: Regular rate/rhythm, Normal S1 S2 Gastrointestinal: Normal bowel sounds, No tenderness Musculoskeletal: No tenderness Integumentary: No rashes Neurological: Normal speech, Normal strength at 5/5 x4 extr, Normal tone, Normal affect - Studies Laboratory Data (last 24 hrs) 06/29/20 20:08: WBC 4.8, Hgb 10.6 L, Hct 31.3 L, Plt Count 167 06/29/20 19:13: Sodium 139, Potassium 5.1, BUN 29 H, Creatinine 2.38 H, Glucose 140 H <Moisés Cruz - Last Filed: 06/29/20 20:44> - Studies Microbiology Data (last 24 hrs): 06/29/20 20:08 Blood - Blood Aerobic Blood Culture - Final No growth in 5 days. 06/29/20 20:08 Blood - Blood Anaerobic Blood Culture - Final 06/29/20 19:13 Blood - Blood Aerobic Blood Culture - Final No growth in 5 days. 06/29/20 19:13 Blood - Blood Anaerobic Blood Culture - Final No growth in 5 days. <Mega Bailey - Last Filed: 07/05/20 20:24> Assessment and Plan - Plan Assessment UTI-failed outpatient therapy Acute kidney injury superimposed on chronic kidney disease Diabetes mellitus type 2 Hypertension Normocytic anemia Plan UTI-failed outpatient therapy: Obtain culture and sensitivity results from [facility]. Continue with meropenem at this time, PICC line order in place. Urine culture obtained in the emergency department. Blood cultures obtained as well. DVT prophylaxis with heparin 5000 units subcutaneous twice daily. Acute kidney injury superimposed on chronic kidney disease: Continue with gentle hydration overnight, nephrology consult in place. Will obtain renal ultrasound and additional labs. Repeat chemistry in the morning. Diabetes mellitus type 2: A.c. HS Accu-Cheks, sliding scale insulin therapy Hypertension: Obtain and continue home medications as appropriate. Normocytic anemia: Likely anemia chronic disease, history CLL, renal insufficiency.Transfuse for hemoglobin less than 7. Discharge Plan: Home Plan to discharge in: 48 Hours - Advance Directives Does patient have a Living Will: No Does patient have a Durable POA for Healthcare: No - Code Status/Comfort Care Code Status Assessed: Yes (Full code) Critical Care: No Time Spent Managing Pts Care (In Minutes): 55 <Moisés Cruz - Last Filed: 06/29/20 20:44> - Plan Agree with plan of care as noted above by Moisés Cruz. working on obtaining outpatient culture. Does not appear septic <Mega Bailey - Last Filed: 07/05/20 20:24>
[2020-06-29 21:24] LABS: Urine Bacteria >50 /HPF (<20); Urine Mucus 4+ /HPF (NONE SEEN)
[2020-06-30] MEDS ORDERED: NA CHLORIDE 0.9% 1,000 ML IV SCH (00:04)
[2020-06-30] MEDS ORDERED: ONDANSETRON 4 MG/2 ML VIAL IV PRN (00:04)
[2020-06-30] MEDS: INSULIN -REGULAR HUMAN 50 UNIT/0.5 ML ML SQ SCH ×5 (00:04→21:00)
[2020-06-30 00:37] VITALS: BMI 34.7
[2020-06-30] MEDS: HEPARIN 5000 UNIT/ML 1 ML VIAL SQ SCH ×3 (01:00→20:59)
[2020-06-30] MEDS ORDERED: Meropenem 1000 MG/VIAL IV SCH ×2 (01:00→09:00)
[2020-06-30] MEDS ORDERED: Meropenem 1 GM/100 ML BAG ONE (01:56)
[2020-06-30 05:40] LABS: Absolute Lymphocytes (CBC) 1.8 K/uL (0.7-4.9); Basophils % 1.1 % (0-1.3); Hematocrit 26.2 % (36.0-45.0); Lymphocytes % 43.4 % (15.3-44.8); MPV 9.3 fL (7.6-11.3)
[2020-06-30 06:03] LABS: Albumin 1.8 g/dL (3.4-5.0); Bilirubin Total 0.3 mg/dL (0.2-1.0); Potassium 3.9 mmol/L (3.5-5.1); Protein, Total 3.9 g/dL (6.4-8.2); Thyroid Stimulating Hormone 0.914 uIU/mL (0.360-3.740)
[2020-06-30] MEDS ORDERED: INFLUENZA VACCINE (for 3y+) 0.5 ML DOSE IMVAC ONE (08:00)
[2020-06-30] MEDS ORDERED: CITALOPRAM 10 MG TABLET PO SCH (09:00)
[2020-06-30] MEDS ORDERED: Meropenem 1,000 MG in NA CHLORIDE 0.9% 100 ML IV SCH (09:00)
[2020-06-30] MEDS ORDERED: METOPROLOL XL 50 MG TAB PO SCH (09:00)
[2020-06-30] MEDS: OXYBUTYNIN CHLORIDE 5 MG TAB PO SCH (10:37)
[2020-06-30] MEDS: predniSONE 5 MG TAB PO SCH (10:37)
[2020-06-30] MEDS: PANTOPRAZOLE 40MG TABLET PO SCH (10:38)
[2020-06-30] MEDS ORDERED: NA CHLORIDE 0.9% 50 ML ONE (12:04)
--- NOTE | 2020-06-30 12:45 | P.PN ---
Subjective Date of Service: 06/30/20 Primary Care Provider: Dr. Jimenez Chief Complaint: UTI, failed outpatient therapy Subjective: No new changes (patient reports feeling ok this morning. Denies SOB, denies pain. Reports some b/l lower extremity swelling which has been ongoing) Review of Systems 10-point ROS is otherwise unremarkable Physical Examination - Vital Signs Temperature: 98.3 F Blood Pressure: 104/48 Pulse: 66 Respirations: 16 Pulse Ox (%): 98 - Studies Laboratory Data (last 24 hrs) 06/29/20 20:08: WBC 4.8, Hgb 10.6 L, Hct 31.3 L, Plt Count 167 06/29/20 19:13: Sodium 139, Potassium 4.0, BUN 29 H, Creatinine 2.38 H, Glucose 140 H Microbiology Data (last 24 hrs): 06/29/20 20:08 Blood - Blood Anaerobic Blood Culture - Final Assessment & Plan Physician Review Additional Text: Physical Exam: Gen: NAD, AAOx3 HEENT: sclera anicteric CV: Regular rate & rhythmm Pulm: Clear to auscultation bilaterally Abd: soft, NTND Ext: 1-2+ pitting edema at b/l ankles Problem List: UTI-failed outpatient therapy LARON on CKD3 Diabetes mellitus type 2, non-insulin dependent Hypertension Normocytic anemia Plan UTI-failed outpatient therapy: Obtain culture and sensitivity results from [facility] / nephrhologist's office Continue with meropenem at this time, PICC line order in place. Urine & blood cultures obtained in the ED LARON on CKD3 received gentle IVF hydration overnight. dc this AM given b/l edema nephrology consulted pt with some b/l edema, and has been taking lasix, unclear if became intravascularly depleted hold off on lasix for now, pt with low BP Diabetes mellitus type 2: A.c. HS Accu-Cheks, sliding scale insulin therapy Hypertension: hold home medications - BP on low side Normocytic anemia: Likely anemia chronic disease, history CML, renal insufficiency. Transfuse for hemoglobin less than 7. Dispo: anticipate dc home in 24-48hrs, will need PICC and final urine cultures, and home health Time Spent Managing Pts Care (In Minutes): 35
--- NOTE | 2020-06-30 13:35 | RAD REPORT ---
EXAM DESCRIPTION: RAD - Chest Single View - 06/30/2020 1:14 pm CLINICAL HISTORY: Device placement PICC line placement IMPRESSION: PICC line with its tip in the distal superior vena cava
--- NOTE | 2020-06-30 19:08 | P.CNS ---
Date of Consult: 06/30/20 Reason for Consult: LARON/ CKD Requesting Physician: Mega Bailey Primary Care Provider: Dr. Jimenez Chief Complaint: UTI, failed outpatient therapy History of Present Illness: 74-year-old female with history of diabetes mellitus type 2, hypertension, CLL presents emergency department for resistant urinary tract infection. Patient reports that she has been on 2 courses of antibiotics including Cipro and amoxicillin which were not be effective, her veterinary practice manager Dr. Vicente center to the emergency department instructing that she had to stay in the hospital. Patient brought with her some doses of tobramycin in a bag and IV formulation, she reports that she had home health arranged in that they were supposed to start giving her the tobramycin but were unable to achieve IV access after 6 attempts. Patient also with some renal insufficiency. Patient was evaluated in the emergency department with labs significant for elevated creatinine 2.38 GFR 20 this is an increase from 1.65 on 06/03/2020 and GFR was 30 on 06/03/2020. Culture and sensitivity unavailable for review at this time as it was performed at [facility]. 19:46 This 74 yrs old Unknown Female presents to ER via Wheelchair with complaints of Sent By bharati Vicente, UTI. 19:46 "I'm going to be admitted for 7 days for IV antibiotics.". Onset: The symptoms/episode kb began/occurred 2 week(s) ago. Severity of symptoms: At their worst the symptoms were moderate in the emergency department the symptoms are unchanged. The patient has not experienced similar symptoms in the past. The patient has been recently seen by a physician:. Pt reports she has had a UTI for a while. Has been through 2 courses of antibiotics with no relief. Was seen by Dr Vicente today and sent here for admission for IV antibiotics because the urine culture showed that is what she needed.. Allergies No Known Allergies Allergy (Verified 06/30/20 00:18) Home medications list reviewed: Yes Home Medications: Citalopram Hydrobromide [Citalopram HBr] 20 mg PO BEDTIME 06/30/20 Esomeprazole Magnesium [Nexium] 20 mg PO DAILY 06/30/20 Furosemide [Lasix*] 40 mg pe PO DAILY 06/30/20 Imatinib Mesylate 300 mg PO BEDTIME 06/30/20 Linagliptin [Tradjenta] 5 mg PO DAILY 06/30/20 Metoprolol Succinate 50 mg PO DAILY 06/30/20 Oxybutynin Chloride 5 mg PO DAILY 06/30/20 lisinopriL [Lisinopril] 20 mg PO DAILY PRN 06/30/20 predniSONE [Prednisone*] 5 mg PO DAILY 06/30/20 - Past Medical/Surgical History Diabetic: Yes -: Diabetes mellitus type 2 -: Hypertension -: CLL -: Cholecystectomy -: Tubal ligation -: cataract sx -: gastric bypass Psychosocial/ Personal History: Patient lives at home with her and son - Family History Mother Medical History: Hypertension, Diabetes - Social History Alcohol use: No CD- Drugs: No Caffeine use: Yes Place of Residence: Home Review of Systems 10-point ROS is otherwise unremarkable General: Weakness, Malaise Cardiovascular: Edema Neurological: Weakness Physical Examination Temp Pulse Resp BP Pulse Ox 98.5 F 71 16 110/46 L 96 06/30/20 16:00 06/30/20 16:00 06/30/20 16:00 06/30/20 16:00 06/30/20 16:00 General: In no apparent distress, Oriented x3, Cooperative HEENT: Atraumatic Neck: Supple Respiratory: Clear to auscultation bilaterally Cardiovascular: Regular rate/rhythm, Edema Gastrointestinal: Soft and benign, Non-distended Musculoskeletal: No clubbing, No contractures Integumentary: No rashes, No cyanosis Neurological: Normal speech Laboratory Data (last 24 hrs) 06/29/20 20:08: WBC 4.8, Hgb 10.6 L, Hct 31.3 L, Plt Count 167 06/29/20 19:13: Sodium 139, Potassium 4.0, BUN 29 H, Creatinine 2.38 H, Glucose 140 H Imagings Data: EXAM DESCRIPTION: RAD - Chest Single View - 06/30/2020 1:14 pm CLINICAL HISTORY: Device placement PICC line placement IMPRESSION: PICC line with its tip in the distal superior vena cava Conclusions/Impression: A/P Continue current POC and Medications. Daily weight. LARON CKD IV with proteinuria -No NSAID -Start IV furosemide and Albumin Hypocalcemia -Start Vitamin D. HTN with CKD -Hold antihypertensives due to hypotension LE Edema -Low sodium diet -Start IV furosemide and Albumin DM II with CKD -RISS Severe malnutrition -Recommend protein supplementation Anemia in chronic illness -Transfuse PRBC as needed. -Give Retacrit Acute MDR cystitis -Continue Meropenem -Follow up culture Thank you kindly for the consultation.
[2020-06-30] MEDS ORDERED: FUROSEMIDE 40 MG/4 ML VIAL IV ONE (20:00)
[2020-06-30] MEDS: ALBUMIN HUMAN 25% 200 ML IV SCH (20:57)
[2020-06-30] MEDS: DOCUSATE NA 100 MG CAP PO SCH (20:58)
[2020-06-30] MEDS: ASCORBIC ACID 500 MG TABLET PO SCH (20:58)
[2020-06-30] MEDS: CITALOPRAM 10 MG TABLET PO SCH (20:58)
[2020-06-30] MEDS ORDERED: TOBRAMYCIN SULF 80 MG/2 ML VIAL ONE (23:11)
[2020-06-30] MEDS: TOBRAMYCIN IV SCH (23:19)
[2020-06-30] MEDS: NA CHLORIDE 0.9% IV SCH (23:19)
[2020-06-30] MEDS ORDERED: NA CHLORIDE 0.9% 100 ML ONE ×2 (23:25)
[2020-07-01] MEDS: ALBUMIN HUMAN 25% 200 ML IV SCH (02:37)
[2020-07-01 06:01] LABS: Absolute Lymphocytes (CBC) 1.5 K/uL (0.7-4.9); Basophils % 1.2 % (0-1.3); Hematocrit 20.7 % (36.0-45.0); Lymphocytes % 45.9 % (15.3-44.8); MPV 9.4 fL (7.6-11.3); RBC Red Blood Cell Count 2.11 M/uL (3.86-4.86)
[2020-07-01 06:11] LABS: Albumin 2.8 g/dL (3.4-5.0); Bilirubin Total 0.5 mg/dL (0.2-1.0); Magnesium 2.1 mg/dL (1.8-2.4); Phosphorus 2.7 mg/dL (2.5-4.9); Potassium 3.5 mmol/L (3.5-5.1); Protein, Total 4.3 g/dL (6.4-8.2); Uric Acid 9.4 mg/dL (2.6-6.0)
[2020-07-01] MEDS: FUROSEMIDE 40 MG/4 ML VIAL IV SCH ×4 (06:26→17:59)
[2020-07-01] MEDS: INSULIN -REGULAR HUMAN 50 UNIT/0.5 ML ML SQ SCH ×4 (07:30→21:00)
[2020-07-01] MEDS: predniSONE 5 MG TAB PO SCH (08:48)
[2020-07-01] MEDS: OXYBUTYNIN CHLORIDE 5 MG TAB PO SCH (08:48)
[2020-07-01] MEDS: VITAMIN D 5,000 UNIT CAP PO SCH (08:48)
[2020-07-01] MEDS: HEPARIN 5000 UNIT/ML 1 ML VIAL SQ SCH ×2 (08:48→21:34)
[2020-07-01] MEDS: CALCITROL 0.25 MCG CAP PO SCH (08:48)
[2020-07-01] MEDS: PANTOPRAZOLE 40MG TABLET PO SCH (08:48)
[2020-07-01] MEDS: DOCUSATE NA 100 MG CAP PO SCH ×2 (08:48→21:33)
[2020-07-01] MEDS ORDERED: EPOETIN ALFA-EPBX 10,000 UNIT/ML VIAL SQ SCH (09:00)
[2020-07-01 09:11] LABS: Hematocrit 22.9 % (36.0-45.0)
[2020-07-01 09:17] LABS: Ferritin 115.8 ng/mL (8-388)
[2020-07-01 10:03] LABS: RBC Red Blood Cell Count 2.47 M/uL (3.86-4.86)
[2020-07-01] MEDS: ASCORBIC ACID 500 MG TABLET PO SCH ×2 (11:00→21:33)
--- NOTE | 2020-07-01 20:03 | P.PN ---
Subjective Date of Service: 07/01/20 Primary Care Provider: Dr. Jimenez Chief Complaint: UTI, failed outpatient therapy Subjective: Other (feeling well, reports improvement of swelling, denies SOB/chest pain) Review of Systems 10-point ROS is otherwise unremarkable Physical Examination - Vital Signs Temperature: 99.1 F Blood Pressure: 118/55 Pulse: 80 Respirations: 16 Pulse Ox (%): 93 - Studies Microbiology Data (last 24 hrs): 06/29/20 20:08 Blood - Blood Anaerobic Blood Culture - Final Assessment & Plan Physician Review Additional Text: Physical Exam: Gen: NAD, AAOx3 HEENT: sclera anicteric CV: Regular rate & rhythm Pulm: Clear to auscultation bilaterally, no wheeze/rales Abd: soft, NTND Ext: 1-2+ pitting edema lower legs Problem List: UTI-failed outpatient therapy LARON on CKD3 Diabetes mellitus type 2, non-insulin dependent Hypertension Normocytic anemia Plan UTI-failed outpatient therapy: culture reveals carbapenem resistant klebsiella, sensitive to only gentamycin and tobramycin started tobramycin on evening of 06/30 PICC placed 06/30 blood Cx negative Ur Cx prelim ID consulted - recommends 7 days of tobramycin, isolation precautions recommends SNF placement due to multiple family members at home with high risk LARON on CKD3 nephrology consulted pt with some b/l edema, initially given gentle IVF on admission, with slight improvement of renal function, however pt appeared volume overloaded lasix restarted by nephrology Normocytic anemia: Hgb <7 this morning, repeat 7.8 appears to be anemia of chronic disease, history CML, renal insufficiency. Transfuse for hemoglobin less than 7. no evidence of ongoing bleeding Diabetes mellitus type 2: A.c. HS Accu-Cheks, sliding scale insulin therapy Hypertension: hold home medications - BP on low side Dispo: PICC placed, SS consulted for SNF placement - pt inquiring about swing bed at [facility] if possible Time Spent Managing Pts Care (In Minutes): 35
[2020-07-01] MEDS ORDERED: CITALOPRAM 10 MG TABLET PO SCH (21:00)
[2020-07-01] MEDS: TOBRAMYCIN IV SCH (21:33)
[2020-07-01] MEDS: NA CHLORIDE 0.9% IV SCH (21:33)
[2020-07-01] MEDS: CITALOPRAM 10 MG TABLET PO SCH (21:33)
[2020-07-02] MEDS: FUROSEMIDE 40 MG/4 ML VIAL IV SCH ×3 (05:08→12:00)
[2020-07-02 05:49] LABS: Absolute Lymphocytes (CBC) 2.6 K/uL (0.7-4.9); Basophils % 0.9 % (0-1.3); Hematocrit 27.1 % (36.0-45.0); Lymphocytes % 52.5 % (15.3-44.8); MPV 9.8 fL (7.6-11.3); RBC Red Blood Cell Count 2.74 M/uL (3.86-4.86)
[2020-07-02 06:05] LABS: Albumin 2.7 g/dL (3.4-5.0); Bilirubin Total 0.6 mg/dL (0.2-1.0); Potassium 3.4 mmol/L (3.5-5.1); Protein, Total 4.6 g/dL (6.4-8.2)
[2020-07-02] MEDS: INSULIN -REGULAR HUMAN 50 UNIT/0.5 ML ML SQ SCH ×3 (07:30→16:30)
[2020-07-02] MEDS ORDERED: POTASSIUM CL SA 10 MEQ TAB PO ONE (08:26)
[2020-07-02] MEDS ORDERED: SPIRONOLACTONE 25 MG TABLET PO SCH (09:00)
[2020-07-02] MEDS ORDERED: TRADJENTA 5 MG PO SCH (09:00)
[2020-07-02] MEDS: HEPARIN 5000 UNIT/ML 1 ML VIAL SQ SCH (09:00)
[2020-07-02 09:39] LABS: Anisocytosis 1+; Blood Morphology Comment NOTED (NOT SEEN); Platelet Estimate ADEQ
[2020-07-02] MEDS: ASCORBIC ACID 500 MG TABLET PO SCH (10:08)
[2020-07-02] MEDS: DOCUSATE NA 100 MG CAP PO SCH (10:08)
[2020-07-02] MEDS: CALCITROL 0.25 MCG CAP PO SCH (10:08)
[2020-07-02] MEDS: OXYBUTYNIN CHLORIDE 5 MG TAB PO SCH (10:08)
[2020-07-02] MEDS: VITAMIN D 5,000 UNIT CAP PO SCH (10:08)
[2020-07-02] MEDS: predniSONE 5 MG TAB PO SCH (10:08)
[2020-07-02] MEDS: PANTOPRAZOLE 40MG TABLET PO SCH (10:09)
[2020-07-02 10:19] VITALS: O2SAT 93
--- NOTE | 2020-07-02 12:54 | P.DS ---
Admission Date: 06/29/20 Discharge Date: 07/02/20 Primary Care Provider: Dr. Jimenez Disposition: TRANSFER TO SNF - MEDICAL Discharge Condition: GOOD Reason for Admission: UTI, failed outpatient therapy Consultations: Nephrology -Dr. Green ID - Dr. Marinelli Procedures: Problem List: UTI-failed outpatient therapy LARON on CKD3 Diabetes mellitus type 2, non-insulin dependent Hypertension Normocytic anemia CML Brief History of Present Illness: 74yo F, PMH: DM2, HTN, CML, presented to ED due to resistant UTI. She received 2 courses of antibiotics (cipro and amox) which were not effective. She was set up for home health with Tobramycin, however they were unable to obtain IV access despite 6 attempts. Patient was advised to present to ED. In the ED, she was found to have some renal insufficiency, UA significant for UTI, no leukocytosis. Hospital Course: Urine culture done as outpatient was initially unavailable. Patient was started on meropenem. Upon receipt of her outside cultures, patient was switched to tobramycin on 06/30. Cultures obtained in our hospital revealed MDR enterobacter and klebsiella - resistant to carbapenems. ID was consulted and agreed with 7 day total course of tobramycin. Upon further discussion, patient reported having disabled/ill family at home should be high-risk if exposed to these bacteria. She was discharged to SNF to complete a total seven days of tobramycin. If possible, to also have acetic acid bladder irrigation daily. Nephrology was consulted due to LARON, she had improvement with IV diuresis which will continue at SNF. Vital Signs/Physical Exam: Temp Pulse Resp BP Pulse Ox 97.6 F 76 16 115/53 L 93 07/02/20 08:00 07/02/20 10:13 07/02/20 08:00 07/02/20 10:13 07/02/20 08:00 Physical Exam: Gen: NAD, AAOx3 HEENT: sclera anicteric CV: Regular rate & rhythm Pulm: Clear to auscultation bilaterally, no wheeze/rales Abd: soft, NTND Ext: 1-2+ pitting edema lower legs Laboratory Data at Discharge: WBC 4.9 K/uL (4.3-10.9) D 07/02/20 05:16 Hgb 8.8 g/dL (12.0-15.0) L 07/02/20 05:16 Hct 27.1 % (36.0-45.0) L D 07/02/20 05:16 Plt Count 138 K/uL (152-406) L 07/02/20 05:16 Sodium 143 mmol/L (136-145) 07/02/20 05:16 Potassium 3.4 mmol/L (3.5-5.1) L 07/02/20 05:16 BUN 24 mg/dL (7-18) H 07/02/20 05:16 Creatinine 1.99 mg/dL (0.55-1.3) H 07/02/20 05:16 Glucose 79 mg/dL (74-106) 07/02/20 05:16 Uric Acid 9.4 mg/dL (2.6-6.0) H 07/01/20 05:35 Phosphorus 2.7 mg/dL (2.5-4.9) 07/01/20 05:35 Magnesium 2.1 mg/dL (1.8-2.4) 07/01/20 05:35 Total Bilirubin 0.6 mg/dL (0.2-1.0) 07/02/20 05:16 AST 24 U/L (15-37) 07/02/20 05:16 ALT 13 U/L (12-78) 07/02/20 05:16 Alkaline Phosphatase 51 U/L (45-117) 07/02/20 05:16 Home Medications: Citalopram Hydrobromide [Citalopram HBr] 20 mg PO BEDTIME 06/30/20 Esomeprazole Magnesium [Nexium] 20 mg PO DAILY 06/30/20 Furosemide [Lasix*] 40 mg pe PO DAILY 06/30/20 Imatinib Mesylate 300 mg PO BEDTIME 06/30/20 Linagliptin [Tradjenta] 5 mg PO DAILY 06/30/20 Metoprolol Succinate 50 mg PO DAILY 06/30/20 Oxybutynin Chloride 5 mg PO DAILY 06/30/20 lisinopriL [Lisinopril] 20 mg PO DAILY PRN 06/30/20 predniSONE [Prednisone*] 5 mg PO DAILY 06/30/20 Ascorbic Acid [Vitamin C*] 500 mg PO Q12H tablet 07/02/20 Calcitrol [Rocaltrol*] 0.5 mcg PO DAILY cap 07/02/20 Cholecalciferol (Vitamin D3) [Vitamin D 5,000 IU Cap*] 5,000 unit PO DAILY cap 07/02/20 Docusate [Colace Cap*] 100 mg PO BID cap 07/02/20 Furosemide [Lasix 40 MG INJ*] 40 mg IV Q6H vial 07/02/20 Spironolactone [Aldactone*] 25 mg PO DAILY tab 07/02/20 Patient Discharge Instructions: you were found to have 2 bacteria in your urine, highly resistant. You are discharged to SNF for 6 more days of antibiotics. You will be continued on your current medications at the SNF with higher doses of lasix temporarily. tobramycin 140mg daily, started 06/30 for 7 days total. repeat UA for clearance. recommend acetic acid bladder irrigation once daily as well if able. continue IV Lasix 40mg q6h, spironolactone 25mg PO daily Diet: ADA Activity: Ad sushil Followup: Triston Vicente MD [Primary Care Provider] - Time spent managing pt's care (in minutes): 45
[2020-07-02 13:53] VITALS: BP 106/56; TEMP 97.4
--- NOTE | 2020-07-02 14:33 | P.PN ---
Date of Service: 07/02/20 Vital Signs Temp Pulse Resp BP Pulse Ox 97.4 F 80 14 106/56 L 94 07/02/20 12:00 07/02/20 12:00 07/02/20 12:00 07/02/20 12:00 07/02/20 12:00 Medications Ascorbic Acid (Ascorbic Acid 500 Mg Tablet) 500 mg PO Q12H SHIRA Stop: 07/30/20 21:01 Last Admin: 07/02/20 10:08 Dose: 500 mg Documented by: Calcitriol (Calcitrol 0.25 Mcg Cap) 0.5 mcg PO DAILY SHIRA Stop: 07/31/20 09:01 Last Admin: 07/02/20 10:08 Dose: 0.5 mcg Documented by: Cholecalciferol (Vitamin D 5,000 Unit Cap) 5,000 unit PO DAILY SHIRA Stop: 07/31/20 09:01 Last Admin: 07/02/20 10:08 Dose: 5,000 unit Documented by: Citalopram Hydrobromide (Citalopram 10 Mg Tablet) 20 mg PO BEDTIME SHIRA Stop: 07/30/20 21:01 Last Admin: 07/01/20 21:33 Dose: 20 mg Documented by: Docusate Sodium (Docusate Na 100 Mg Cap) 100 mg PO BID SHIRA Stop: 07/30/20 21:01 Last Admin: 07/02/20 10:08 Dose: Not Given Documented by: Furosemide (Furosemide 40 Mg/4 Ml Vial) 40 mg IV Q6H SHIRA Stop: 07/31/20 00:01 Last Admin: 07/02/20 12:00 Dose: Not Given Documented by: Heparin Sodium (Porcine) (Heparin 5000 Unit/Ml 1 Ml Vial) 5,000 unit SQ Q12HR SHIRA Stop: 07/30/20 00:05 Last Admin: 07/02/20 09:00 Dose: Not Given Documented by: Home Med (Imatinib Mesylate [Imatinib Mesylate]) 300 mg PO DAILY SHIRA Stop: 07/30/20 09:01 Last Admin: 07/02/20 09:00 Dose: Not Given Documented by: Home Med (Tradjenta (Linagliptin) 5 Mg Tabs) 1 ea PO DAILY SHIRA Stop: 08/01/20 09:01 Last Admin: 07/02/20 09:00 Dose: Not Given Documented by: Tobramycin Sulfate 140 mg/ (Sodium Chloride) 103.5 mls @ 201.733 mls/hr IV Q24H [facility]; Protocol Stop: 07/30/20 21:01 Last Admin: 07/01/20 21:33 Dose: 103.5 mls Documented by: Insulin Human Regular (Insulin -Regular Human 50 Unit/0.5 Ml Ml) 0 unit SQ ACHS [facility]; Protocol Stop: 07/30/20 00:05 Last Admin: 07/02/20 11:30 Dose: Not Given Documented by: Ondansetron HCl (Ondansetron 4 Mg/2 Ml Vial) 4 mg IV Q6HP PRN PRN Reason: NAUSEA / VOMITING Stop: 07/30/20 00:05 Last Admin: 07/02/20 05:07 Dose: 4 mg Documented by: Oxybutynin Chloride (Oxybutynin Chloride 5 Mg Tab) 5 mg PO DAILY [facility] Stop: 07/30/20 09:01 Last Admin: 07/02/20 10:08 Dose: 5 mg Documented by: Pantoprazole Sodium (Pantoprazole 40mg Tablet) 40 mg PO DAILY [facility] Stop: 07/30/20 09:01 Last Admin: 07/02/20 10:09 Dose: 40 mg Documented by: Prednisone (Prednisone 5 Mg Tab) 5 mg PO DAILY [facility] Stop: 07/30/20 09:01 Last Admin: 07/02/20 10:08 Dose: 5 mg Documented by: Sodium Chloride (Flush Normal Saline 10 Ml) 10 ml IV BID [facility] Stop: 07/30/20 00:05 Last Admin: 07/02/20 10:09 Dose: 10 ml Documented by: Spironolactone (Spironolactone 25 Mg Tablet) 25 mg PO DAILY [facility] Stop: 08/01/20 09:01 Last Admin: 07/02/20 10:13 Dose: 25 mg Documented by: Microbiology Results 06/29/20 20:30 Clean Catch Urine [place] Count - Final >100,000 CFU/ML. 06/29/20 20:30 Clean Catch Urine - Final Enterobacter Cloacae Klebsiella Pneumoniae 06/29/20 20:08 Blood - Blood Aerobic Blood Culture - Preliminary No growth in 24 hours. 06/29/20 20:08 Blood - Blood Anaerobic Blood Culture - Final 06/29/20 19:13 Blood - Blood Aerobic Blood Culture - Preliminary No growth in 24 hours. 06/29/20 19:13 Blood - Blood Anaerobic Blood Culture - Preliminary No growth in 24 hours. Assessment/ Plan: Nephrology Feeling better with improved edema. Good urine output. CPS stable without CP or SOB. +SCHULTZ No acute events overnight. Vitals, medications, blood work and imaging reviewed in the chart. General: In no apparent distress, Oriented x3, Cooperative HEENT: Atraumatic Neck: Supple Respiratory: Clear to auscultation bilaterally Cardiovascular: Regular rate/rhythm, Edema Gastrointestinal: Soft and benign, Non-distended Musculoskeletal: No clubbing, No contractures Integumentary: No rashes, No cyanosis Neurological: Normal speech Laboratory Data (last 24 hrs) 06/29/20 20:08: WBC 4.8, Hgb 10.6 L, Hct 31.3 L, Plt Count 167 06/29/20 19:13: Sodium 139, Potassium 4.0, BUN 29 H, Creatinine 2.38 H, Glucose 140 H Imagings Data: EXAM DESCRIPTION: RAD - Chest Single View - 06/30/2020 1:14 pm CLINICAL HISTORY: Device placement PICC line placement IMPRESSION: PICC line with its tip in the distal superior vena cava Conclusions/Impression: A/P Continue current POC and Medications. Daily weight. LARON CKD IV with proteinuria -No NSAID -Continue furosemide -Start spironolactone Hypokalemia -Replete potassium -Start spironolactone Hypocalcemia -Continue Vitamin D. HTN with CKD -Hold antihypertensives due to hypotension LE Edema -Low sodium diet -Continue furosemide and start spironolactone DM II with CKD -RISS Severe malnutrition -Recommend protein supplementation Anemia in chronic illness -Transfuse PRBC as needed. -Give another dose of Retacrit Acute MDR cystitis -Continue Meropenem -Follow up culture -ID following Case reviewed with Dr. Bailey
[2020-07-02] MEDS ORDERED: EPOETIN ALFA-EPBX 10,000 UNIT/ML VIAL SQ ONE (14:45)
== END 2020-07-02 16:33 | DRG 689 ==
LOC: ER 17:54 → ERHOLD 20:31 → 2ND 23:51
PROVIDERS: ADMIT Hospitalist; ATTEND Hospitalist
PROC: 02HV33Z Insertion of Infusion Device into Superior Vena Cava, Percutaneous Approach (ICD-10-PCS; principal; 2020-06-30)
DX: N30.00 Acute cystitis without hematuria (principal); E43 Unspecified severe protein-calorie malnutrition; N17.9 Acute kidney failure, unspecified; Z16.29 Resistance to other single specified antibiotic; I12.9 Hypertensive chronic kidney disease with stage 1 through stage 4 chronic kidney disease, or unspecified chronic kidney disease; N18.30 Chronic kidney disease, stage 3 unspecified; E11.22 Type 2 diabetes mellitus with diabetic chronic kidney disease; D63.8 Anemia in other chronic diseases classified elsewhere; E83.51 Hypocalcemia; E87.6 Hypokalemia; B96.89 Other specified bacterial agents as the cause of diseases classified elsewhere; B96.1 Klebsiella pneumoniae [K. pneumoniae] as the cause of diseases classified elsewhere; R60.0 Localized edema; Z90.49 Acquired absence of other specified parts of digestive tract; Z87.891 Personal history of nicotine dependence; Z68.34 Body mass index [BMI] 34.0-34.9, adult; Z98.84 Bariatric surgery status; Z79.899 Other long term (current) drug therapy; Z79.52 Long term (current) use of systemic steroids; Z98.51 Tubal ligation status; Z20.822 Contact with and (suspected) exposure to COVID-19; Z23 Encounter for immunization
CPT/HCPCS: 36415; 36569; 71045; 80048; 80053; 80200; 81003; 81015; 82728; 82947; 83010; 83540; 83605; 83615; 83735; 83880; 84100; 84145; 84439; 84443; 84466; 84550; 85014; 85018; 85025; 85044; 87040; 87077; 87086; 87088; 87186; 90471; 96374; 99285; J1644; J1940; J2185; J2405; J3260; J7030; J7512; P9047; Q2035; Q5106; U0003